=== PATIENT | female | born 1935 | race Caucasian/White ===

== ENCOUNTER 2018-03-16 17:40 | Inpatient (IN) | payer OTHER ==
[2018-03-16 18:54] VITALS: BMI 24.2
[2018-03-16] MEDS ORDERED: ALBUTEROL SO4 2.5/IPRATROPIUM 0.5 INH SOL 3 ML VIAL.NEB. NEB STA (19:45)
--- NOTE | 2018-03-16 19:52 | PDOC ---
History of Present Illness - General History Source: Patient Exam Limitations: No Limitations - History of Present Illness Initial Comments: 03/16/18 19:53 The patient is a 83 year old female, with a significant PMH of HTN, alzheimer's , gait difficulty, multiple falls and dementia who presents to the emergency department sent in for further evaluation of productive cough and failure to thrive. As per the daughter at bedside, the patient had 4 falls at [facility]. Patient had her last fall yesterday and was noted to have hit her head then. Patient is DNR and DNI according to paperwork. Allergies: penicillin Past surgical history: None reported. Social history: No reported alcohol or drug use. Prior smoker. PCP: Dr. Gunderson [phone] <Hedy Johnson - Last Filed: 03/16/18 20:53> <Alena Nieves - Last Filed: 03/17/18 00:35> - General Chief Complaint: Revisit,Radiology Variance Stated Complaint: DECLINED IN HEALTH STATUS Time Seen by Provider: 03/16/18 19:24 Past History <Hedy Johnson - Last Filed: 03/16/18 20:53> - Past Medical History COPD: No CHF: No HTN: Yes Psychiatric Problems: Yes (major depressive disorder) Other medical history: arthropathy - Suicide/Smoking/Psychosocial Hx Smoking History: Unknown if ever smoked Have you smoked in the past 12 months: No Information on smoking cessation initiated: No Hx Alcohol Use: No Drug/Substance Use Hx: No <Alena Nieves - Last Filed: 03/17/18 00:35> - Past Medical History Allergies/Adverse Reactions: Allergies Allergy/AdvReac Type Severity Reaction Status Date / Time Penicillins Allergy Verified 03/16/18 19:43 Home Medications: Ambulatory Orders Acetaminophen [Tylenol] 650 mg PO Q8H PRN 03/16/18 Amlodipine Besylate 5 mg PO DAILY 03/16/18 Cholecalciferol (Vitamin D3) [Vitamin D3] 1,000 unit PO DAILY 03/16/18 Donepezil HCl 5 mg PO HS 03/16/18 Haloperidol [Haldol -] 0.5 mg PO HS PRN 03/16/18 Paroxetine HCl [Paxil] 30 mg PO DAILY 03/16/18 Neuro Specific PMHX - Complaint Specific PMHX Glaucoma: Yes (alzheimers) <Chele Nievesa Emilia - Last Filed: 03/17/18 00:35> Review of Systems - Review of Systems Able to Perform ROS?: Yes Comments:: 03/16/18 19:54 ADULT ROS as per pts daughter GENERAL/CONSTITUTIONAL: No fever or chills. (+) 4 falls. (+) Increased somnolence. (+) Failure to thrive. HEAD, EYES, EARS, NOSE AND THROAT: (+) Right eye discharge. No ear pain or discharge. No sore throat. CARDIOVASCULAR: No chest pain or shortness of breath. RESPIRATORY: No wheezing, or hemoptysis. (+) Cough. (+) Rhinorrhea. GASTROINTESTINAL: No nausea, vomiting, diarrhea or constipation. GENITOURINARY: No dysuria, frequency, or change in urination. MUSCULOSKELETAL: No joint or muscle swelling or pain. No neck or back pain. SKIN: No rash NEUROLOGIC: No headache, vertigo, loss of consciousness, or change in strength/ sensation. ENDOCRINE: No increased thirst. No abnormal weight change. HEMATOLOGIC/LYMPHATIC: No anemia, easy bleeding, or history of blood clots. ALLERGIC/IMMUNOLOGIC: No hives or skin allergy. <Hedy Johnson - Last Filed: 03/16/18 20:53> *Physical Exam - Vital Signs Last Vital Signs Temp Pulse Resp BP Pulse Ox 97.4 F L 90 16 133/94 100 03/16/18 17:40 03/16/18 17:40 03/16/18 17:40 03/16/18 17:40 03/16/18 17:40 - Physical Exam Comments: 03/16/18 19:54 ADULT EXAM GENERAL: Awake, nonverbal. HEAD: (+) Resolving ecchymosis to the right forehead. EYES: PERRLA, EOMI, (+) drainage from the right eye and conjunctiva injected. ENT: Auricles normal inspection, hearing grossly normal, nares patent, oropharynx clear without exudates. (+)rhinorrhea. LUNGS: (+) Scattered rhonchi. No wheezing. HEART: Regular rate and rhythm, normal S1 and S2, no murmurs, rubs or gallops ABDOMEN: Soft, nontender. CHEST WALL: Bruising and ecchymosis to the right anterior chest wall. EXTREMITIES: (+) Bruising to the left upper extremity. Moving all extremities. No edema. NEUROLOGICAL: Alert. Moving all extremities. Advanced dementia, nonverbal. SKIN: Warm, Dry, scattered bruising on torso and extremities, multiple stages of healing. <Hedy Johnson - Last Filed: 03/16/18 20:53> - Vital Signs Last Vital Signs Temp Pulse Resp BP Pulse Ox 97.4 F L 90 16 133/94 100 03/16/18 17:40 03/16/18 17:40 03/16/18 17:40 03/16/18 17:40 03/16/18 17:40 <Alena Nieves - Last Filed: 03/17/18 00:35> Moderate Sedation - Procedure Monitoring Vital Signs: Procedure Monitoring Vital Signs Temperature 97.4 F L 03/16/18 17:40 Pulse Rate 90 03/16/18 17:40 Respiratory Rate 16 03/16/18 17:40 Blood Pressure 133/94 03/16/18 17:40 O2 Sat by Pulse Oximetry (%) 100 03/16/18 17:40 <Hedy Johnson - Last Filed: 03/16/18 20:53> - Procedure Monitoring Vital Signs: Procedure Monitoring Vital Signs Temperature 97.4 F L 03/16/18 17:40 Pulse Rate 90 03/16/18 17:40 Respiratory Rate 16 03/16/18 17:40 Blood Pressure 133/94 03/16/18 17:40 O2 Sat by Pulse Oximetry (%) 100 03/16/18 17:40 <Alena Nieves - Last Filed: 03/17/18 00:35> ED Treatment Course - LABORATORY CBC & Chemistry Diagram: 03/16/18 19:49 03/16/18 19:49 <Hedy Johnson - Last Filed: 03/16/18 20:53> - LABORATORY CBC & Chemistry Diagram: 03/16/18 19:49 03/16/18 21:08 - RADIOLOGY Radiology Studies Ordered: Category Date Time Status CHEST CT WITHOUT CONTRAST [CT] Stat CT Scan 03/16/18 19:[address] WITHOUT CONTRAST [CT] Stat CT Scan 03/16/18 19:49 Ordered CHEST - PA [RAD] Stat Radiology 03/16/18 18:44 Completed <Alena Nieves - Last Filed: 03/17/18 00:35> Medical Decision Making - Medical Decision Making 03/16/18 21:02 The head without contrast. Impression there is moderate atrophy and ventricular dilatation with NO gross evidence of acute intracranial pathology. The calvarium is intact. 03/16/18 22:16 Doris Herring ( daughter) cell [phone] work [phone] 03/17/18 00:31 Review of C-spine did not show any acute C-spine fracture No left humerus fracture. Radiograph of right hand, no fracture. Case discussed D[employer]EL [employer]CH[employer]IC Alena Hanks and I did speak with Dr. Jordan, who said to admit to telemetry, give aspirin and he was follow-up <Alena Nieves - Last Filed: 03/17/18 00:35> *DC/Admit/Observation/Transfer - Attestations Scribe Attestion: 03/16/18 19:54 Documentation prepared by Hedy Johnson, acting as biomedical instrument technician for Alena Nieves MD. <Hedy Johnson - Last Filed: 03/16/18 20:53> - Discharge Dispostion Decision to Admit order: Yes <Alena Nieves - Last Filed: 03/17/18 00:35> Diagnosis at time of Disposition: Falls frequently, Elevated troponin UTI (urinary tract infection) Qualifiers: Urinary tract infection type: site unspecified Hematuria presence: without hematuria Qualified Code(s): N39.0 - Urinary tract infection, site not specified Dementia Qualifiers: Dementia type: unspecified type Dementia behavioral disturbance: without behavioral disturbance Qualified Code(s): F03.90 - Unspecified dementia without behavioral disturbance - Discharge Dispostion Condition at time of disposition: Fair - Referrals Referrals: Romeo Wilson MD [Primary Care Provider] - - Patient Instructions - Post Discharge Activity
[2018-03-16 20:42] LABS: BASO % 0.2 % (0-2.0); EOS % 0.1 % (0-4.5); HEMATOCRIT 41.5 % (32.4-45.2); HEMOGLOBIN 13.8 GM/dL (10.7-15.3); LYMPH % 9.2 % (8-40); MCH 30.9 pg (25.7-33.7); MCHC 33.2 g/dl (32.0-36.0); MEAN PLT VOLUME 9.6 fl (7.5-11.1); MONO % 9.9 % (3.8-10.2); NEUT % 80.6 % (42.8-82.8); PLATELET COUNT 244 K/MM3 (134-434); RBC 4.46 M/mm3 (3.60-5.2); RDW 14.9 % (11.6-15.6); WHITE BLOOD COUNT 7.9 K/mm3 (4.0-10.0)
[2018-03-16 20:53] LABS: INR 1.09 (0.83-1.09); PROTHROMBIN TIME (PATIENT) 12.9 SEC (9.7-13.0)
[2018-03-16] MEDS ORDERED: ALBUTEROL SO4 2.5/IPRATROPIUM 0.5 INH SOL 3 ML VIAL.NEB. NEB ONE (21:14)
[2018-03-16 21:28] LABS: URINE APPEARANCE SLCLOUDY; URINE BILIRUBIN NEGATIVE (<2.0 mg/dL); URINE COLOR YELLOW; URINE GLUCOSE (UA) NEGATIVE (NEGATIVE); URINE KETONE TRACE (NEGATIVE); URINE LEUK ESTERASE 1+ (NEGATIVE); URINE NITRITE POSITIVE (NEGATIVE); URINE PROTEIN 1+ (NEGATIVE)
[2018-03-16] MEDS ORDERED: CEFTRIAXONE 1,000 MG in DEXTROSE 5%-WATER - 50 ML IVPB STA (22:07)
[2018-03-16] MEDS ORDERED: CEFTRIAXONE 1 GM/50 ML BAG ONE (22:11)
[2018-03-16 22:16] LABS: EPI CELLS RARE /HPF (FEW); URINE BACTERIA MANY /hpf (NONE SEEN); URINE MUCUS RARE
[2018-03-16] MEDS: SODIUM CHLORIDE 1,000 ML IV SCH (22:51)
[2018-03-16 23:13] LABS: ALBUMIN 3.3 g/dl (3.4-5.0); ALK PHOS 92 U/L (45-117); ANION GAP 10 MMOL/L (8-16); BILIRUBIN,TOTAL 0.7 mg/dL (0.2-1); BLOOD UREA NITROGEN 60 mg/dL (7-18); CHLORIDE 107 mmol/L (98-107); CO2 26 mmol/L (21-32); CREATININE 1.1 mg/dL (0.55-1.3); GLUCOSE,RANDOM 96 mg/dL (74-106); POTASSIUM 3.9 mmol/L (3.5-5.1); SGOT/AST 100 U/L (15-37); SGPT/ALT 53 U/L (13-61); SODIUM 143 mmol/L (136-145); TOT PROT 6.6 g/dl (6.4-8.2)
[2018-03-16] MEDS ORDERED: ASPIRIN 81 MG CHEWABLE TABLETS PO ONE (23:55)
--- NOTE | 2018-03-17 00:37 | HP ---
CHIEF COMPLAINT: Fever PCP: Dr. Gunderson ([facility]) HISTORY OF PRESENT ILLNESS: This is a 83 y/o woman from [facility] with a past medical history of Dementia, HTN, MDD, OA, Frequent Falls. Who presents to the ED for evaluation of fever. Patient has Dementia unable to provide HPI ER course was notable for: (1) UA- +nitrate, +1 blood, +1 leukocyte esterase, trace ketones (2) Chest Xray- cardiomegaly, no acute disease (3) Trop I 1.06 (4) EKG- NSR T wave abnormality, consider anterolateral ischemia Recent Travel: None PAST MEDICAL HISTORY: Dementia HTN MDD OA Frequent Falls PAST SURGICAL HISTORY: Unable to obtain Social History: Smoking: Unknown Alcohol: Unknown Drugs: Unknown Resides at [facility] Family History: Unable to obtain Allergies Penicillins Allergy (Verified 03/16/18 19:43) HOME MEDICATIONS: Home Medications Medication Instructions Recorded Acetaminophen [Tylenol] 650 mg PO Q8H PRN 03/16/18 Amlodipine Besylate 5 mg PO DAILY 03/16/18 Cholecalciferol (Vitamin D3) 1,000 unit PO DAILY 03/16/18 [Vitamin D3] Donepezil HCl 5 mg PO HS 03/16/18 Haloperidol [Haldol -] 0.5 mg PO HS PRN 03/16/18 Paroxetine HCl [Paxil] 30 mg PO DAILY 03/16/18 REVIEW OF SYSTEMS Dementia CONSTITUTIONAL: Absent: fever, chills, diaphoresis, generalized weakness, malaise, loss of appetite, weight change HEENT: Absent: rhinorrhea, nasal congestion, throat pain, throat swelling, difficulty swallowing, mouth swelling, ear pain, eye pain, visual changes CARDIOVASCULAR: Absent: chest pain, syncope, palpitations, irregular heart rate, lightheadedness , peripheral edema RESPIRATORY: Absent: cough, shortness of breath, dyspnea with exertion, orthopnea, wheezing, stridor, hemoptysis GASTROINTESTINAL: Absent: abdominal pain, abdominal distension, nausea, vomiting, diarrhea, constipation, melena, hematochezia GENITOURINARY: Absent: dysuria, frequency, urgency, hesitancy, hematuria, flank pain, genital pain MUSCULOSKELETAL: Absent: myalgia, arthralgia, joint swelling, back pain, neck pain SKIN: Absent: rash, itching, pallor HEMATOLOGIC/IMMUNOLOGIC: Absent: easy bleeding, easy bruising, lymphadenopathy, frequent infections ENDOCRINE: Absent: unexplained weight gain, unexplained weight loss, heat intolerance, cold intolerance NEUROLOGIC: Absent: headache, focal weakness or paresthesias, dizziness, unsteady gait, seizure, mental status changes, bladder or bowel incontinence PSYCHIATRIC: Absent: anxiety, depression, suicidal or homicidal ideation, hallucinations. PHYSICAL EXAMINATION Vital Signs - 24 hr 03/16/18 03/16/18 03/16/18 17:40 21:08 23:23 Temperature 97.4 F L 98.8 F Pulse Rate 90 Pulse Rate [ 86 Apical] Respiratory 16 20 Rate Blood Pressure 133/94 Blood Pressure 132/85 [Left Arm] O2 Sat by Pulse 100 98 Oximetry (%) GENERAL: Awake, alert to name, in no acute distress. HEAD: Normal with no signs of trauma. EYES: Pupils equal, round and reactive to light, extraocular movements intact, sclera anicteric, conjunctiva clear. No lid lag. EARS, NOSE, THROAT: Ears normal, nares patent, oropharynx clear without exudates. Moist mucous membranes. NECK: Normal range of motion, supple without lymphadenopathy, JVD, or masses. LUNGS: Breath sounds equal, clear to auscultation bilaterally. No wheezes, and no crackles. No accessory muscle use. HEART: Regular rate and rhythm, normal S1 and S2 without murmur, rub or gallop. ABDOMEN: Soft, nontender, not distended, normoactive bowel sounds, no guarding, no rebound, no masses. No hepatomegaly or splenomegaly. MUSCULOSKELETAL: Normal range of motion at all joints. No bony deformities or tenderness. No CVA tenderness. UPPER EXTREMITIES: 2+ pulses, warm, well-perfused. No cyanosis. No clubbing. No peripheral edema. LOWER EXTREMITIES: 2+ pulses, warm, well-perfused. No calf tenderness. No peripheral edema. NEUROLOGICAL: Cranial nerves II-XII intact. Normal speech. Gait not observed. PSYCHIATRIC: Cooperative. Good eye contact. Appropriate mood and affect. SKIN: Warm, dry, normal turgor, no rashes or lesions noted, normal capillary refill. eccyhmotic bruising- yellow/purple to Left Upper Arm Laboratory Results - last 24 hr 03/16/18 03/16/18 03/16/18 19:49 19:49 19:49 WBC 7.9 RBC 4.46 Hgb 13.8 Hct 41.5 MCV 93.0 MCH 30.9 MCHC 33.2 RDW 14.9 Plt Count 244 MPV 9.6 Absolute Neuts (auto) 6.4 Neutrophils % 80.6 Lymphocytes % 9.2 Monocytes % 9.9 Eosinophils % 0.1 Basophils % 0.2 Nucleated RBC % 0 PT with INR 12.90 INR 1.09 Sodium Potassium Chloride Carbon Dioxide Anion Gap BUN Creatinine Creat Clearance w eGFR Random Glucose Lactic Acid Calcium Total Bilirubin AST ALT Alkaline Phosphatase Creatine Kinase Troponin I Total Protein Albumin Urine Color Yellow Urine Appearance Slcloudy Urine pH 5.0 Ur Specific [place] 1.024 Urine Protein 1+ H Urine Glucose (UA) Negative Urine Ketones Trace H Urine Blood 1+ H Urine Nitrite Positive Urine Bilirubin Negative Urine Urobilinogen 2.0 H Ur Leukocyte Esterase 1+ H Urine WBC (Auto) 19 Urine RBC (Auto) 3 Ur Epithelial Cells Rare Urine Bacteria Many Urine Mucus Rare Influenza A (Rapid) Influenza B (Rapid) 03/16/18 03/16/18 03/16/18 19:49 19:49 19:49 WBC RBC Hgb Hct MCV MCH MCHC RDW Plt Count MPV Absolute Neuts (auto) Neutrophils % Lymphocytes % Monocytes % Eosinophils % Basophils % Nucleated RBC % PT with INR INR Sodium Cancelled Potassium Cancelled Chloride Cancelled Carbon Dioxide Cancelled Anion Gap Cancelled BUN Cancelled Creatinine Cancelled Creat Clearance w eGFR Cancelled Random Glucose Cancelled Lactic Acid 1.0 Calcium Cancelled Total Bilirubin Cancelled AST Cancelled ALT Cancelled Alkaline Phosphatase Cancelled Creatine Kinase Cancelled Troponin I Cancelled Total Protein Cancelled Albumin Cancelled Urine Color Urine Appearance Urine pH Ur Specific [place] Urine Protein Urine Glucose (UA) Urine Ketones Urine Blood Urine Nitrite Urine Bilirubin Urine Urobilinogen Ur Leukocyte Esterase Urine WBC (Auto) Urine RBC (Auto) Ur Epithelial Cells Urine Bacteria Urine Mucus Influenza A (Rapid) Influenza B (Rapid) 03/16/18 03/16/18 03/16/18 19:52 21:08 21:08 WBC RBC Hgb Hct MCV MCH MCHC RDW Plt Count MPV Absolute Neuts (auto) Neutrophils % Lymphocytes % Monocytes % Eosinophils % Basophils % Nucleated RBC % PT with INR INR Sodium 143 Potassium 3.9 Chloride 107 Carbon Dioxide 26 Anion Gap 10 BUN 60 H Creatinine 1.1 Creat Clearance w eGFR 47.67 Random Glucose 96 Lactic Acid Calcium 9.0 Total Bilirubin 0.7 AST 100 H ALT 53 Alkaline Phosphatase 92 Creatine Kinase Troponin I 1.06 H* Total Protein 6.6 Albumin 3.3 L Urine Color Urine Appearance Urine pH Ur Specific [place] Urine Protein Urine Glucose (UA) Urine Ketones Urine Blood Urine Nitrite Urine Bilirubin Urine Urobilinogen Ur Leukocyte Esterase Urine WBC (Auto) Urine RBC (Auto) Ur Epithelial Cells Urine Bacteria Urine Mucus Influenza A (Rapid) Negative Influenza B (Rapid) Negative ASSESSMENT/PLAN: This is a 83 y/o woman PMHx of Dementia, HTN, MDD, Frequent Falls. Admitted to Telemetry Elevated Troponin, UTI for further evaluation of their emergent condition. Plan: See Problem List FEN PO fluids as tolerated Replete lytes prn Low Na Diet DVT ppx OOB SCDs Heparin SQ Code Status: DNR/DNI Dispo: Requires Inpatient Care Problem List - Problem (1) Elevated troponin Assessment/Plan: r/o OH Cardiac monitoring Serial Enzymes Appreciate Cardiology consult- aware per ED attending will see in am Asa given in ED, will continue EKG- NSR, T wave abnormality V3, V4, V5 Consider Echo Code(s): R74.8 - ABNORMAL LEVELS OF OTHER SERUM ENZYMES (2) UTI (urinary tract infection) Assessment/Plan: UA- +nitrate, +1 blood, +1 leukocyte esterase, +trace ketones Urine Culture pending Ceftriaxone given in ED Will start on Levaquin secondary to PCN allergy Monitor CBC Monitor vitals Code(s): N39.0 - URINARY TRACT INFECTION, SITE NOT SPECIFIED Qualifiers: Urinary tract infection type: site unspecified Hematuria presence: without hematuria Qualified Code(s): N39.0 - Urinary tract infection, site not specified (3) Falls frequently Assessment/Plan: Head CT- moderate atrophy, no ICH C-spine- neg fx, neg subluxation Chest CT- no acute lung disease, no pnuemothorax, -pleural effusion, chronic fx , posterior ACH T12 Fall Precautions PT eval Monitor vitals Monitor CBC, BMP Code(s): R29.6 - REPEATED FALLS (4) Dementia Assessment/Plan: Continue home meds Code(s): F03.90 - UNSPECIFIED DEMENTIA WITHOUT BEHAVIORAL DISTURBANCE Qualifiers: Dementia type: unspecified type Dementia behavioral disturbance: without behavioral disturbance Qualified Code(s): F03.90 - Unspecified dementia without behavioral disturbance Visit type - Emergency Visit Emergency Visit: Yes ED Registration Date: 03/16/18 Care time: The patient presented to the Emergency Department on the above date and was hospitalized for further evaluation of their emergent condition. - New Patient This patient is new to me today: Yes Date on this admission: 03/17/18 - Critical Care Critical Care patient: No
[2018-03-17] MEDS ORDERED: ASPIRIN 325 MG TABLET ONE (01:37)
[2018-03-17] MEDS ORDERED: ASPIRIN 81 MG CHEWABLE TABLETS ONE (01:42)
[2018-03-17] MEDS ORDERED: HALOPERIDOL 0.5 MG TABLET PO PRN (07:04)
[2018-03-17] MEDS ORDERED: CEFTRIAXONE 1 GM in DEXTROSE 5%-WATER - 50 ML IVPB SCH (10:00)
[2018-03-17] MEDS ORDERED: PARoxetine HCL 30 MG TABLET PO SCH (10:00)
[2018-03-17 10:43] LABS: BASO % 0.6 % (0-2.0); EOS % 0.7 % (0-4.5); HEMATOCRIT 37.3 % (32.4-45.2); HEMOGLOBIN 12.5 GM/dL (10.7-15.3); LYMPH % 10.5 % (8-40); MCH 31.1 pg (25.7-33.7); MCHC 33.4 g/dl (32.0-36.0); MEAN CELL VOLUME 92.9 fl (80-96); MEAN PLT VOLUME 9.3 fl (7.5-11.1); MONO % 10.9 % (3.8-10.2); NEUT % 77.3 % (42.8-82.8); PLATELET COUNT 197 K/MM3 (134-434); RBC 4.01 M/mm3 (3.60-5.2); RDW 14.2 % (11.6-15.6); WHITE BLOOD COUNT 7.4 K/mm3 (4.0-10.0)
[2018-03-17] MEDS ORDERED: LORazepam 2 MG/ML SDV VIAL IVPUSH PRN (11:10)
--- NOTE | 2018-03-17 11:23 | PN ---
Progress Note (short form) - Note Progress Note: Events noted pt examined in ER she is confused, knows her name no complaints Vital Signs - 24 hr 03/16/18 03/16/18 03/16/18 17:40 21:08 23:23 Temperature 97.4 F L 98.8 F Pulse Rate 90 Pulse Rate [ 86 Apical] Respiratory 16 20 Rate Blood Pressure 133/94 Blood Pressure 132/85 [Left Arm] O2 Sat by Pulse 100 98 Oximetry (%) 03/17/18 02:00 Temperature 98.5 F Pulse Rate Pulse Rate [ 108 H Apical] Respiratory 22 H Rate Blood Pressure Blood Pressure 159/107 H [Left Arm] O2 Sat by Pulse 99 Oximetry (%) Current Medications Generic Name Dose Route Start Last Admin Trade Name Freq PRN Reason Stop Dose Admin Amlodipine Besylate 5 mg 03/17/18 10:00 Norvasc - PO DAILY [facility] Aspirin 81 mg 03/17/18 10:00 Asa - PO DAILY KYRA Cholecalciferol 1,000 unit 03/17/18 10:00 Vitamin D3 - PO DAILY [facility] Donepezil HCl 5 mg 03/17/18 22:00 Aricept - PO HS KYRA Heparin Sodium (Porcine) 5,000 unit 03/17/18 10:00 Heparin - SQ BID KYRA Sodium Chloride 1,000 mls @ 125 mls/hr 03/16/18 22:30 03/16/18 22:51 Normal Saline - IV 125 mls/hr ASDIR KYRA Administration Levofloxacin 250 mg in 50 mls @ 50 mls/hr 03/17/18 10:00 Levaquin 250 Mg Premixed Ivpb - IVPB 03/20/18 09:59 DAILY [facility] Protocol Lorazepam 0.5 mg 03/17/18 11:10 Ativan Injection - IVPUSH Q6H PRN ANXIETY Paroxetine HCl 20 mg/ 30 mg 03/17/18 10:00 Paroxetine HCl 10 mg PO DAILY [facility] Laboratory Results - last 24 hr 03/16/18 03/16/18 03/16/18 19:49 19:49 19:49 WBC 7.9 RBC 4.46 Hgb 13.8 Hct 41.5 MCV 93.0 MCH 30.9 MCHC 33.2 RDW 14.9 Plt Count 244 MPV 9.6 Absolute Neuts (auto) 6.4 Neutrophils % 80.6 Lymphocytes % 9.2 Monocytes % 9.9 Eosinophils % 0.1 Basophils % 0.2 Nucleated RBC % 0 PT with INR 12.90 INR 1.09 Sodium Potassium Chloride Carbon Dioxide Anion Gap BUN Creatinine Creat Clearance w eGFR Random Glucose Lactic Acid Calcium Total Bilirubin AST ALT Alkaline Phosphatase Creatine Kinase Troponin I Total Protein Albumin Urine Color Yellow Urine Appearance Slcloudy Urine pH 5.0 Ur Specific [place] 1.024 Urine Protein 1+ H Urine Glucose (UA) Negative Urine Ketones Trace H Urine Blood 1+ H Urine Nitrite Positive Urine Bilirubin Negative Urine Urobilinogen 2.0 H Ur Leukocyte Esterase 1+ H Urine WBC (Auto) 19 Urine RBC (Auto) 3 Ur Epithelial Cells Rare Urine Bacteria Many Urine Mucus Rare Influenza A (Rapid) Influenza B (Rapid) 03/16/18 03/16/18 03/16/18 19:49 19:49 19:49 WBC RBC Hgb Hct MCV MCH MCHC RDW Plt Count MPV Absolute Neuts (auto) Neutrophils % Lymphocytes % Monocytes % Eosinophils % Basophils % Nucleated RBC % PT with INR INR Sodium Cancelled Potassium Cancelled Chloride Cancelled Carbon Dioxide Cancelled Anion Gap Cancelled BUN Cancelled Creatinine Cancelled Creat Clearance w eGFR Cancelled Random Glucose Cancelled Lactic Acid 1.0 Calcium Cancelled Total Bilirubin Cancelled AST Cancelled ALT Cancelled Alkaline Phosphatase Cancelled Creatine Kinase Cancelled Troponin I Cancelled Total Protein Cancelled Albumin Cancelled Urine Color Urine Appearance Urine pH Ur Specific [place] Urine Protein Urine Glucose (UA) Urine Ketones Urine Blood Urine Nitrite Urine Bilirubin Urine Urobilinogen Ur Leukocyte Esterase Urine WBC (Auto) Urine RBC (Auto) Ur Epithelial Cells Urine Bacteria Urine Mucus Influenza A (Rapid) Influenza B (Rapid) 03/16/18 03/16/18 03/16/18 19:52 21:08 21:08 WBC RBC Hgb Hct MCV MCH MCHC RDW Plt Count MPV Absolute Neuts (auto) Neutrophils % Lymphocytes % Monocytes % Eosinophils % Basophils % Nucleated RBC % PT with INR INR Sodium 143 Potassium 3.9 Chloride 107 Carbon Dioxide 26 Anion Gap 10 BUN 60 H Creatinine 1.1 Creat Clearance w eGFR 47.67 Random Glucose 96 Lactic Acid Calcium 9.0 Total Bilirubin 0.7 AST 100 H ALT 53 Alkaline Phosphatase 92 Creatine Kinase Troponin I 1.06 H* Total Protein 6.6 Albumin 3.3 L Urine Color Urine Appearance Urine pH Ur Specific [place] Urine Protein Urine Glucose (UA) Urine Ketones Urine Blood Urine Nitrite Urine Bilirubin Urine Urobilinogen Ur Leukocyte Esterase Urine WBC (Auto) Urine RBC (Auto) Ur Epithelial Cells Urine Bacteria Urine Mucus Influenza A (Rapid) Negative Influenza B (Rapid) Negative 03/17/18 03/17/18 04:10 10:25 WBC 7.4 RBC 4.01 Hgb 12.5 Hct 37.3 MCV 92.9 MCH 31.1 MCHC 33.4 RDW 14.2 Plt Count 197 MPV 9.3 Absolute Neuts (auto) 5.7 Neutrophils % 77.3 Lymphocytes % 10.5 Monocytes % 10.9 H Eosinophils % 0.7 D Basophils % 0.6 Nucleated RBC % 0 PT with INR INR Sodium Potassium Chloride Carbon Dioxide Anion Gap BUN Creatinine Creat Clearance w eGFR Random Glucose Lactic Acid Calcium Total Bilirubin AST ALT Alkaline Phosphatase Creatine Kinase Troponin I 1.05 H* Total Protein Albumin Urine Color Urine Appearance Urine pH Ur Specific [place] Urine Protein Urine Glucose (UA) Urine Ketones Urine Blood Urine Nitrite Urine Bilirubin Urine Urobilinogen Ur Leukocyte Esterase Urine WBC (Auto) Urine RBC (Auto) Ur Epithelial Cells Urine Bacteria Urine Mucus Influenza A (Rapid) Influenza B (Rapid) Oral dry S1 S2 RRR lungs decreased Abd- soft, NT no edema PLAN Noted elevated troponins-- Echo ordered Cardiology consult Trend troponins-- elevated likely due to demand ischemia ,UTI IV antibiotics cultures pending ID eval xrays and CT scans noted no fractures fall precautions Pt is DNR/DNI Problem List - Problems (1) Dementia Code(s): F03.90 - UNSPECIFIED DEMENTIA WITHOUT BEHAVIORAL DISTURBANCE Qualifiers: Dementia type: unspecified type Dementia behavioral disturbance: without behavioral disturbance Qualified Code(s): F03.90 - Unspecified dementia without behavioral disturbance (2) Elevated troponin Code(s): R74.8 - ABNORMAL LEVELS OF OTHER SERUM ENZYMES (3) Falls frequently Code(s): R29.6 - REPEATED FALLS (4) UTI (urinary tract infection) Code(s): N39.0 - URINARY TRACT INFECTION, SITE NOT SPECIFIED Qualifiers: Urinary tract infection type: site unspecified Hematuria presence: without hematuria Qualified Code(s): N39.0 - Urinary tract infection, site not specified
[2018-03-17 11:27] LABS: ANION GAP 10 MMOL/L (8-16); BLOOD UREA NITROGEN 47 mg/dL (7-18); CALCIUM 8.7 mg/dL (8.5-10.1); CHLORIDE 110 mmol/L (98-107); CHOLESTEROL 180 mg/dL (50-200); CO2 26 mmol/L (21-32); CREATININE 0.9 mg/dL (0.55-1.3); GLUCOSE,RANDOM 92 mg/dL (74-106); HDL CHOLESTEROL 50 mg/dL (40-60); POTASSIUM 3.7 mmol/L (3.5-5.1); SODIUM 146 mmol/L (136-145); TRIGLYCERIDES 128 mg/dL (0-150)
--- NOTE | 2018-03-17 11:49 | CON.ID ---
Consult Consult Specialty:: infectious diseases Referred by:: Reason for Consultation:: sepsis,cough - History of Present Illness History of Present Illness: The patient is a 83 year old female, with a significant PMH of HTN, alzheimer's , gait difficulty, multiple falls and dementia who presents to the emergency department sent in for further evaluation of productive cough and failure to thrive. As per the daughter at bedside, the patient had 4 falls at [facility]. Patient had her last fall yesterday and was noted to have hit her head then. Patient is DNR and DNI according to paperwork. history obtained from the charts as patient is unable to give any further history - History Source History Provided By: Medical Record Limitations to Obtaining History: Clinical Condition - Alcohol/Substance Use Hx Alcohol Use: No - Smoking History Smoking history: Unknown if ever smoked Have you smoked in the past 12 months: No Home Medications - Allergies Allergies/Adverse Reactions: Allergies Allergy/AdvReac Type Severity Reaction Status Date / Time Penicillins Allergy Verified 03/16/18 19:43 - Home Medications Home Medications: Ambulatory Orders Acetaminophen [Tylenol] 650 mg PO Q8H PRN 03/16/18 Cholecalciferol (Vitamin D3) [Vitamin D3] 1,000 unit PO DAILY 03/16/18 Haloperidol [Haldol -] 0.5 mg PO HS PRN 03/16/18 Paroxetine HCl [Paxil] 30 mg PO DAILY 03/16/18 RX: Amlodipine Besylate 5 mg PO DAILY 03/16/18 RX: Donepezil HCl 5 mg PO HS 03/16/18 Review of Systems Unable to obtain ROS, reason: unable to obtain Physical Exam Vital Signs: Vital Signs Temperature 98.5 F 03/17/18 02:00 Pulse Rate 108 H 03/17/18 02:00 Respiratory Rate 22 H 03/17/18 02:00 Blood Pressure 159/107 H 03/17/18 02:00 O2 Sat by Pulse Oximetry (%) 99 03/17/18 02:00 Constitutional: Yes: Calm, Other Cardiovascular: Yes: Regular Rate and Rhythm Respiratory: Yes: Regular, On Nasal O2, Poor Air Entry, Rhonchi Gastrointestinal: Yes: Normal Bowel Sounds, Soft Musculoskeletal: Yes: WNL Extremities: Yes: Other Neurological: Yes: Lethargy, Other Labs: CBC, BMP 03/17/18 10:25 03/17/18 06:00 Imaging - Results Chest X-ray: Report Reviewed, Image Reviewed X-ray: Report Reviewed, Image Reviewed Cat Scan: Report Reviewed, Image Reviewed Assessment/Plan - Problems (1) Dementia Code(s): F03.90 - UNSPECIFIED DEMENTIA WITHOUT BEHAVIORAL DISTURBANCE Qualifiers: Dementia type: unspecified type Dementia behavioral disturbance: without behavioral disturbance Qualified Code(s): F03.90 - Unspecified dementia without behavioral disturbance (2) Elevated troponin Code(s): R74.8 - ABNORMAL LEVELS OF OTHER SERUM ENZYMES (3) Falls frequently Code(s): R29.6 - REPEATED FALLS (4) UTI (urinary tract infection) Code(s): N39.0 - URINARY TRACT INFECTION, SITE NOT SPECIFIED Qualifiers: Urinary tract infection type: site unspecified Hematuria presence: without hematuria Qualified Code(s): N39.0 - Urinary tract infection, site not specified plan will start patient on abx await for identification of the organism close watch hydration rest as per the team
[2018-03-17] MEDS: HEPARIN NA (PORCINE) 5,000 UNITS/ML 1ML VIAL SQ SCH ×2 (11:59→21:10)
[2018-03-17] MEDS: amLODIPine BESYLATE 5 MG TABLET (FP) PO SCH (11:59)
[2018-03-17] MEDS: ASPIRIN 81 MG CHEWABLE TABLETS PO SCH (11:59)
[2018-03-17] MEDS: PAROXETINE HCL 20 MG, PAROXETINE HCL 10 MG PO SCH (12:00)
[2018-03-17] MEDS: CHOLECALCIFEROL (VITAMIN D3) 1,000 UNIT TABLET (FP) PO SCH (12:00)
[2018-03-17] MEDS: AZTREONAM 1 GM in DEXTROSE 5%-WATER - 50 ML IVPB SCH ×2 (12:17→21:07)
--- NOTE | 2018-03-17 13:08 | EKG ---
Test Reason : Blood Pressure : / mmHG Vent. Rate : 089 BPM Atrial Rate : 089 BPM P-R Int : 162 ms QRS Dur : 064 ms QT Int : 338 ms P-R-T Axes : 074 -62 109 degrees QTc Int : 411 ms POOR DATA QUALITY, INTERPRETATION MAY BE ADVERSELY AFFECTED NORMAL SINUS RHYTHM POSSIBLE LEFT ATRIAL ENLARGEMENT LEFT ANTERIOR FASCICULAR BLOCK T WAVE ABNORMALITY, CONSIDER ANTEROLATERAL ISCHEMIA ABNORMAL ECG NO PREVIOUS ECGS AVAILABLE Confirmed by RASTA MCGREGOR MD ([id number]) on 03/17/2018 1:08:01 PM Referred By: Confirmed By:RASTA MCGREGOR MD
--- NOTE | 2018-03-17 13:10 | CON.CARD ---
Consult Consult Specialty:: Cardiology Reason for Consultation:: positive TNIS - History of Present Illness History of Present Illness: This is a 83 y/o woman from [facility] with a past medical history of Dementia, HTN, MDD, OA, Frequent Falls. Who presents to the ED for evaluation of fever. Patient has Dementia unable to provide HPI ER course was notable for: (1) UA- +nitrate, +1 blood, +1 leukocyte esterase, trace ketones (2) Chest Xray- cardiomegaly, no acute disease (3) Trop I 1.06 (4) EKG- NSR T wave abnormality, consider anterolateral ischemia - Alcohol/Substance Use Hx Alcohol Use: No - Smoking History Smoking history: Unknown if ever smoked Have you smoked in the past 12 months: No Home Medications - Allergies Allergies/Adverse Reactions: Allergies Allergy/AdvReac Type Severity Reaction Status Date / Time Penicillins Allergy Verified 03/16/18 19:43 - Home Medications Home Medications: Ambulatory Orders Acetaminophen [Tylenol] 650 mg PO Q8H PRN 03/16/18 Amlodipine Besylate 5 mg PO DAILY 03/16/18 Cholecalciferol (Vitamin D3) [Vitamin D3] 1,000 unit PO DAILY 03/16/18 Donepezil HCl 5 mg PO HS 03/16/18 Haloperidol [Haldol -] 0.5 mg PO HS PRN 03/16/18 Paroxetine HCl [Paxil] 30 mg PO DAILY 03/16/18 Review of Systems Unable to obtain ROS, reason: dementia Vital Signs: Vital Signs Temperature 98.5 F 03/17/18 02:00 Pulse Rate 108 H 03/17/18 02:00 Respiratory Rate 22 H 03/17/18 02:00 Blood Pressure 159/107 H 03/17/18 02:00 O2 Sat by Pulse Oximetry (%) 99 03/17/18 02:00 Constitutional: Yes: Well Nourished, No Distress, Calm Eyes: Yes: WNL, Conjunctiva Clear, EOM Intact HENT: Yes: WNL, Atraumatic, Normocephalic Neck: Yes: WNL, Supple, Trachea Midline Respiratory: Yes: WNL, Regular, CTA Bilaterally Gastrointestinal: Yes: WNL, Normal Bowel Sounds Renal/: Yes: WNL Cardiovascular: Yes: WNL, Regular Rate and Rhythm Musculoskeletal: Yes: WNL Extremities: Yes: WNL Integumentary: Yes: WNL ...Motor Strength: WNL Psychiatric: Yes: WNL, Alert, Oriented - Other Data Labs, Other Data: CBC, BMP 03/17/18 10:25 03/17/18 06:00 INR, PTT INR 1.09 (0.83-1.09) 03/16/18 19:49 Troponin, BNP 03/16/18 03/16/18 03/17/18 19:49 21:08 04:10 Troponin I Cancelled 1.06 H* 1.05 H* 03/17/18 06:00 Troponin I 0.91 H* Troponin, BNP 03/16/18 03/16/18 03/17/18 19:49 21:08 04:10 Troponin I Cancelled 1.06 H* 1.05 H* 03/17/18 06:00 Troponin I 0.91 H* Imaging - Results Chest X-ray: Image Reviewed (mild cm) EKG: Image Reviewed (sr inverted t waves lateral leads - r/o ischemia) Problem List - Problems (1) Dementia Code(s): F03.90 - UNSPECIFIED DEMENTIA WITHOUT BEHAVIORAL DISTURBANCE Qualifiers: Dementia type: unspecified type Dementia behavioral disturbance: without behavioral disturbance Qualified Code(s): F03.90 - Unspecified dementia without behavioral disturbance (2) Elevated troponin Code(s): R74.8 - ABNORMAL LEVELS OF OTHER SERUM ENZYMES (3) Falls frequently Code(s): R29.6 - REPEATED FALLS (4) UTI (urinary tract infection) Code(s): N39.0 - URINARY TRACT INFECTION, SITE NOT SPECIFIED Qualifiers: Urinary tract infection type: site unspecified Hematuria presence: without hematuria Qualified Code(s): N39.0 - Urinary tract infection, site not specified Assessment/Plan sepsis elevated tnis most likely due to sepsis abnormal ekg uti dementia Plan abx as per id supportive tr serial ekg and tnis echo asa will f/u
--- NOTE | 2018-03-17 14:55 | ECHO ---
Name: CHRIS BEAULIEU Exam:Adult Echocardiogram Study Date: 03/17/2018 12:34 PM Age: 83 yrs Reason For Study: EF Height: 59 in Weight: 120 lb BSA: 1.5 m2 MMode/2D Measurements & Calculations IVSd: 0.92 cm Ao root diam: 3.8 cm LVIDd: 4.3 cm LA dimension: 3.1 cm LVIDs: 2.4 cm ACS: 1.6 cm LVPWd: 0.96 cm IVSs: 1.1 cm LVPWs: 1.1 cm EDV(Teich): 83.5 ml ESV(Teich): 20.0 ml Doppler Measurements & Calculations MV E max dipika: 47.4 cm/sec Ao V2 max: 103.7 cm/sec MV A max dipika: 105.1 cm/sec Ao max P.3 mmHg MV E/A: 0.45 Ao V2 mean: 70.4 cm/sec Ao mean P.2 mmHg Ao V2 VTI: 16.5 cm TR max dipika: 214.0 cm/sec Med Peak E' Dipika: 3.1 cm/sec TR max P.4 mmHg Med E/e': 15.2 Lat Peak E' Dipika: 4.7 cm/sec Lat E/e': 10.1 Procedure A two-dimensional transthoracic echocardiogram with color flow and Doppler was performed. Left Ventricle The left ventricular size, thickness and function are normal. The left ventricular ejection fraction is normal. E/A reversal consistent with but not diagnostic of poor LV compliance. The left ventricular w all motion is normal. Right Ventricle The right ventricle is normal in size and function. Atria Normal left and right atrial size and function. Mitral Valve There is mild mitral valve thickening. There is no mitral valve stenosis. There is mild mitral regurg itation. Tricuspid Valve There is mild tricuspid valve thickening. There is no tricuspid stenosis. There is mild tricuspid regurgitation. Right ventricular systolic pressure is normal. Great Vessels The aortic root is normal size. Pericardium/Pleura There is no pericardial effusion. Interpretation Summary The left ventricular size, thickness and function are normal The left ventricular ejection fraction is normal. The left ventricular wall motion is normal. E/A reversal consistent with but not diagnostic of poor LV compliance There is mild mitral regurgitation. There is mild tricuspid regurgitation. Right ventricular systolic pressure is normal. MD Randy Jordan 03/17/2018 02:54 PM
[2018-03-17] MEDS: DONEPEZIL HCL 5 MG TABLET (FP) PO SCH (21:10)
[2018-03-17] MEDS: SODIUM CHLORIDE 1,000 ML IV SCH (22:50)
[2018-03-18] MEDS: AZTREONAM 1 GM in DEXTROSE 5%-WATER - 50 ML IVPB SCH ×3 (02:16→17:52)
[2018-03-18] MEDS ORDERED: PT OWN MED DRAWER 7, Y5N ONE (10:21)
[2018-03-18] MEDS: ASPIRIN 81 MG CHEWABLE TABLETS PO SCH (11:18)
[2018-03-18] MEDS: amLODIPine BESYLATE 5 MG TABLET (FP) PO SCH (11:18)
[2018-03-18] MEDS: CHOLECALCIFEROL (VITAMIN D3) 1,000 UNIT TABLET (FP) PO SCH (11:18)
[2018-03-18] MEDS: PAROXETINE HCL 20 MG, PAROXETINE HCL 10 MG PO SCH (11:18)
[2018-03-18] MEDS: HEPARIN NA (PORCINE) 5,000 UNITS/ML 1ML VIAL SQ SCH ×2 (11:18→21:17)
--- NOTE | 2018-03-18 11:28 | PN ---
Progress Note, Physician Chief Complaint: Pt has eyes open; says "hello Doctor", then does not speak anymore. Does not follow verbal requests (e.g. no movement when asked to move limbs). History of Present Illness: The patient is a 83 year old female, with a significant PMH of HTN, alzheimer's , gait difficulty, multiple falls, who presents to the emergency department sent in for further evaluation of productive cough and failure to thrive. As per the daughter at bedside, the patient had 4 falls at [facility]. Patient had her last fall yesterday and was noted to have hit her head then. Patient is DNR and DNI according to paperwork. Allergies: penicillin Past surgical history: None reported. Social history: No reported alcohol or drug use. Prior smoker. PCP: Dr. Gunderson [phone] - Current Medication List Current Medications: Active Medications Amlodipine Besylate (Norvasc -) 5 mg PO DAILY [facility] Last Admin: 03/18/18 11:18 Dose: 5 mg Aspirin (Asa -) 81 mg PO DAILY [facility] Last Admin: 03/18/18 11:18 Dose: 81 mg Cholecalciferol (Vitamin D3 -) 1,000 unit PO DAILY [facility] Last Admin: 03/18/18 11:18 Dose: 1,000 unit Donepezil HCl (Aricept -) 5 mg PO HS [facility] Last Admin: 03/17/18 21:10 Dose: 5 mg Heparin Sodium (Porcine) (Heparin -) 5,000 unit SQ BID [facility] Last Admin: 03/18/18 11:18 Dose: 5,000 unit Sodium Chloride (Normal Saline -) 1,000 mls @ 125 mls/hr IV ASDIR [facility] Last Admin: 03/17/18 22:50 Dose: 125 mls/hr Aztreonam 1 gm/ Dextrose 50 mls @ 100 mls/hr IVPB Q8H-IV [facility]; Protocol Last Admin: 03/18/18 11:19 Dose: 100 mls/hr Lorazepam (Ativan Injection -) 0.5 mg IVPUSH Q6H PRN PRN Reason: ANXIETY Paroxetine HCl 20 mg/ (Paroxetine HCl 10 mg) 30 mg PO DAILY [facility] Last Admin: 03/18/18 11:18 Dose: 30 mg - Objective Vital Signs: Vital Signs Temperature 98.4 F 03/18/18 06:00 Pulse Rate 77 03/18/18 08:47 Respiratory Rate 18 03/18/18 08:47 Blood Pressure 132/79 03/18/18 08:47 O2 Sat by Pulse Oximetry (%) 100 03/17/18 21:00 Labs: CBC, BMP 03/17/18 10:25 03/17/18 06:00 INR, PTT INR 1.09 (0.83-1.09) 03/16/18 19:49
--- NOTE | 2018-03-18 12:33 | PN ---
Progress Note (short form) - Note Progress Note: pt seen/ examined chart reviewed. patient is awake Speaks few words No distress Vital Signs Temp 98.4 F 03/18/18 06:00 Pulse 77 03/18/18 08:47 Resp 18 03/18/18 08:47 BP 132/79 03/18/18 08:47 Pulse Ox 100 03/17/18 21:00 Intake & Output 03/17/18 03/18/18 03/18/18 23:59 11:59 23:59 Intake Total 1980 1450 Output Total 850 400 Balance 1130 1050 Weight 120 lb Intake: IV 1100 1200 Normal Saline - 1,000 ml 1100 1200 @ 125 mls/hr IV ASDIR [facility] Rx#:[id number] IVPB 250 50 Oral 630 200 Output: Urine 850 400 Gallardo 850 400 Other: Voiding Method Indwelling Catheter Indwelling Catheter Bowel Movement No No Height 4 ft 11 in Body Mass Index (BMI) 24.2 Weight Measurement Method Estimated by Staff Active Medications Amlodipine Besylate (Norvasc -) 5 mg PO DAILY [facility] Last Admin: 03/18/18 11:18 Dose: 5 mg Aspirin (Asa -) 81 mg PO DAILY [facility] Last Admin: 03/18/18 11:18 Dose: 81 mg Cholecalciferol (Vitamin D3 -) 1,000 unit PO DAILY [facility] Last Admin: 03/18/18 11:18 Dose: 1,000 unit Donepezil HCl (Aricept -) 5 mg PO HS [facility] Last Admin: 03/17/18 21:10 Dose: 5 mg Heparin Sodium (Porcine) (Heparin -) 5,000 unit SQ BID [facility] Last Admin: 03/18/18 11:18 Dose: 5,000 unit Sodium Chloride (Normal Saline -) 1,000 mls @ 125 mls/hr IV ASDIR [facility] Last Admin: 03/17/18 22:50 Dose: 125 mls/hr Aztreonam 1 gm/ Dextrose 50 mls @ 100 mls/hr IVPB Q8H-IV [facility]; Protocol Last Admin: 03/18/18 11:19 Dose: 100 mls/hr Lorazepam (Ativan Injection -) 0.5 mg IVPUSH Q6H PRN PRN Reason: ANXIETY Paroxetine HCl 20 mg/ (Paroxetine HCl 10 mg) 30 mg PO DAILY [facility] Last Admin: 01/24/19 11:18 Dose: 30 mg CBC, BMP 03/17/18 10:25 03/17/18 06:00 Microbiology 03/16/18 19:48 Urine Culture - Preliminary Urine - Urine - Catheterized Lactose Fermenting Neg Bacilli Lactose Fermenting Neg Bacilli#2 physical exam S1 S2 RRR lungs decreased Abd- soft, NT no edema mucosa moist PLAN Noted elevated troponins--Likely stress related/demand ischemia echocardiogram Cardiology following--consultation noted IV antibiotics cultures pending fall precautions Pt is DNR/DNI we will follow Problem List - Problems (1) Dementia Code(s): F03.90 - UNSPECIFIED DEMENTIA WITHOUT BEHAVIORAL DISTURBANCE Qualifiers: Dementia type: unspecified type Dementia behavioral disturbance: without behavioral disturbance Qualified Code(s): F03.90 - Unspecified dementia without behavioral disturbance (2) Elevated troponin Code(s): R74.8 - ABNORMAL LEVELS OF OTHER SERUM ENZYMES (3) Falls frequently Code(s): R29.6 - REPEATED FALLS (4) UTI (urinary tract infection) Code(s): N39.0 - URINARY TRACT INFECTION, SITE NOT SPECIFIED Qualifiers: Urinary tract infection type: site unspecified Hematuria presence: without hematuria Qualified Code(s): N39.0 - Urinary tract infection, site not specified
--- NOTE | 2018-03-18 18:16 | PN ---
Progress Note, Physician History of Present Illness: patient stable dementia low grade fever - Current Medication List Current Medications: Active Medications Amlodipine Besylate (Norvasc -) 5 mg PO DAILY [facility] Last Admin: 03/18/18 11:18 Dose: 5 mg Aspirin (Asa -) 81 mg PO DAILY [facility] Last Admin: 03/18/18 11:18 Dose: 81 mg Cholecalciferol (Vitamin D3 -) 1,000 unit PO DAILY [facility] Last Admin: 03/18/18 11:18 Dose: 1,000 unit Donepezil HCl (Aricept -) 5 mg PO HS [facility] Last Admin: 03/17/18 21:10 Dose: 5 mg Heparin Sodium (Porcine) (Heparin -) 5,000 unit SQ BID [facility] Last Admin: 03/18/18 11:18 Dose: 5,000 unit Sodium Chloride (Normal Saline -) 1,000 mls @ 125 mls/hr IV ASDIR [facility] Last Admin: 03/17/18 22:50 Dose: 125 mls/hr Aztreonam 1 gm/ Dextrose 50 mls @ 100 mls/hr IVPB Q8H-IV [facility]; Protocol Last Admin: 03/18/18 17:52 Dose: 100 mls/hr Lorazepam (Ativan Injection -) 0.5 mg IVPUSH Q6H PRN PRN Reason: ANXIETY Paroxetine HCl 20 mg/ (Paroxetine HCl 10 mg) 30 mg PO DAILY [facility] Last Admin: 03/18/18 11:18 Dose: 30 mg - Objective Vital Signs: Vital Signs Temperature 100 F H 03/18/18 14:15 Pulse Rate 82 03/18/18 14:15 Respiratory Rate 18 03/18/18 14:15 Blood Pressure 147/73 03/18/18 14:15 O2 Sat by Pulse Oximetry (%) 100 03/17/18 21:00 Constitutional: Yes: No Distress, Calm, Other (dementia) Cardiovascular: Yes: S1, S2 Respiratory: Yes: Regular, CTA Bilaterally Gastrointestinal: Yes: Normal Bowel Sounds, Soft Musculoskeletal: Yes: WNL Extremities: Yes: WNL Neurological: Yes: Alert, Other Labs: CBC, BMP 03/17/18 10:25 03/17/18 06:00 INR, PTT INR 1.09 (0.83-1.09) 03/16/18 19:49 Assessment/Plan - Problems (1) Dementia Code(s): F03.90 - UNSPECIFIED DEMENTIA WITHOUT BEHAVIORAL DISTURBANCE Qualifiers: Dementia type: unspecified type Dementia behavioral disturbance: without behavioral disturbance Qualified Code(s): F03.90 - Unspecified dementia without behavioral disturbance (2) Elevated troponin Code(s): R74.8 - ABNORMAL LEVELS OF OTHER SERUM ENZYMES (3) Falls frequently Code(s): R29.6 - REPEATED FALLS (4) UTI (urinary tract infection) Code(s): N39.0 - URINARY TRACT INFECTION, SITE NOT SPECIFIED Qualifiers: Urinary tract infection type: site unspecified Hematuria presence: without hematuria Qualified Code(s): N39.0 - Urinary tract infection, site not specified plan awaiting for identification of the organism continue iv abx nutrition rest as per the team
[2018-03-18] MEDS: DONEPEZIL HCL 5 MG TABLET (FP) PO SCH (21:17)
[2018-03-19] MEDS: SODIUM CHLORIDE 1,000 ML IV SCH (02:12)
[2018-03-19] MEDS: AZTREONAM 1 GM in DEXTROSE 5%-WATER - 50 ML IVPB SCH (02:13)
--- NOTE | 2018-03-19 09:36 | PN ---
Progress Note, Physician History of Present Illness: patient looks much better more awake and alert responding properly says she feels better - Current Medication List Current Medications: Active Medications Amlodipine Besylate (Norvasc -) 5 mg PO DAILY [facility] Last Admin: 03/18/18 11:18 Dose: 5 mg Aspirin (Asa -) 81 mg PO DAILY [facility] Last Admin: 03/18/18 11:18 Dose: 81 mg Cholecalciferol (Vitamin D3 -) 1,000 unit PO DAILY [facility] Last Admin: 03/18/18 11:18 Dose: 1,000 unit Donepezil HCl (Aricept -) 5 mg PO HS [facility] Last Admin: 03/18/18 21:17 Dose: 5 mg Heparin Sodium (Porcine) (Heparin -) 5,000 unit SQ BID [facility] Last Admin: 03/18/18 21:17 Dose: 5,000 unit Sodium Chloride (Normal Saline -) 1,000 mls @ 125 mls/hr IV ASDIR [facility] Last Admin: 03/19/18 02:12 Dose: 125 mls/hr Aztreonam 1 gm/ Dextrose 50 mls @ 100 mls/hr IVPB Q8H-IV [facility]; Protocol Last Admin: 03/19/18 02:13 Dose: 100 mls/hr Lorazepam (Ativan Injection -) 0.5 mg IVPUSH Q6H PRN PRN Reason: ANXIETY Paroxetine HCl 20 mg/ (Paroxetine HCl 10 mg) 30 mg PO DAILY [facility] Last Admin: 03/18/18 11:18 Dose: 30 mg - Objective Vital Signs: Vital Signs Temperature 98.3 F 03/19/18 05:43 Pulse Rate 70 03/19/18 05:43 Respiratory Rate 20 03/19/18 05:43 Blood Pressure 134/80 03/19/18 05:43 O2 Sat by Pulse Oximetry (%) 97 03/19/18 00:42 Constitutional: Yes: No Distress, Calm Cardiovascular: Yes: S1, S2 Respiratory: Yes: Regular, CTA Bilaterally Gastrointestinal: Yes: Normal Bowel Sounds, Soft Musculoskeletal: Yes: WNL Extremities: Yes: Other Neurological: Yes: Alert, Oriented Psychiatric: Yes: Alert, Oriented Labs: CBC, BMP 03/17/18 10:25 03/17/18 06:00 INR, PTT INR 1.09 (0.83-1.09) 01/22/19 19:49 Assessment/Plan - Problems (1) Dementia Code(s): F03.90 - UNSPECIFIED DEMENTIA WITHOUT BEHAVIORAL DISTURBANCE Qualifiers: Dementia type: unspecified type Dementia behavioral disturbance: without behavioral disturbance Qualified Code(s): F03.90 - Unspecified dementia without behavioral disturbance (2) Elevated troponin Code(s): R74.8 - ABNORMAL LEVELS OF OTHER SERUM ENZYMES (3) Falls frequently Code(s): R29.6 - REPEATED FALLS (4) UTI (urinary tract infection) Code(s): N39.0 - URINARY TRACT INFECTION, SITE NOT SPECIFIED Qualifiers: Urinary tract infection type: site unspecified Hematuria presence: without hematuria Qualified Code(s): N39.0 - Urinary tract infection, site not specified organism noted plan will stop aztreonam will switch to meropenam will need to cover ther for 2 weeks rest as per the team
[2018-03-19] MEDS ORDERED: PT OWN MED DRAWER 7, Y5N ONE (11:28)
[2018-03-19] MEDS: MEROPENEM 1 GM in DEXTROSE 5%-WATER 100 ML IVPB SCH ×2 (11:32→18:20)
[2018-03-19] MEDS: HEPARIN NA (PORCINE) 5,000 UNITS/ML 1ML VIAL SQ SCH ×2 (11:32→23:45)
[2018-03-19] MEDS: CHOLECALCIFEROL (VITAMIN D3) 1,000 UNIT TABLET (FP) PO SCH (11:34)
[2018-03-19] MEDS: ASPIRIN 81 MG CHEWABLE TABLETS PO SCH (11:34)
[2018-03-19] MEDS: amLODIPine BESYLATE 5 MG TABLET (FP) PO SCH (11:35)
--- NOTE | 2018-03-19 11:45 | PN ---
Progress Note (short form) - Note Progress Note: pt seen/ examined more awake. enganges in small conversations denies pain afebrile all f/u noted Vital Signs Temp 98.3 F 03/19/18 05:43 Pulse 70 03/19/18 05:43 Resp 20 03/19/18 05:43 BP 134/80 03/19/18 05:43 Pulse Ox 97 03/19/18 00:42 Intake & Output 03/18/18 03/18/18 03/19/18 11:59 23:59 11:59 Intake Total 1450 1500 240 Output Total 400 500 700 Balance 1050 1000 -460 Intake: IV 1200 1400 Normal Saline - 1,000 ml 1200 1400 @ 125 mls/hr IV ASDIR [facility] Rx#:[id number] IVPB 50 100 Oral 200 240 Output: Urine 400 500 700 Gallardo 400 500 700 Other: Voiding Method Indwelling Catheter Indwelling Catheter Indwelling Catheter Bowel Movement No No Active Medications Amlodipine Besylate (Norvasc -) 5 mg PO DAILY [facility] Last Admin: 03/19/18 11:35 Dose: 5 mg Aspirin (Asa -) 81 mg PO DAILY [facility] Last Admin: 03/19/18 11:34 Dose: 81 mg Cholecalciferol (Vitamin D3 -) 1,000 unit PO DAILY [facility] Last Admin: 03/19/18 11:34 Dose: 1,000 unit Donepezil HCl (Aricept -) 5 mg PO HS [facility] Last Admin: 03/18/18 21:17 Dose: 5 mg Heparin Sodium (Porcine) (Heparin -) 5,000 unit SQ BID [facility] Last Admin: 03/19/18 11:32 Dose: 5,000 unit Meropenem 1 gm/ Dextrose 100 mls @ 200 mls/hr IVPB Q8H-IV [facility] Last Admin: 03/19/18 11:32 Dose: 200 mls/hr Lorazepam (Ativan Injection -) 0.5 mg IVPUSH Q6H PRN PRN Reason: ANXIETY Paroxetine HCl 20 mg/ (Paroxetine HCl 10 mg) 30 mg PO DAILY [facility] Last Admin: 03/18/18 11:18 Dose: 30 mg CBC, BMP 03/17/18 10:25 03/17/18 06:00 Microbiology 03/16/18 19:48 Urine Culture - Final Urine - Urine - Catheterized Klebsiella Pneumoniae Escherichia Coli Esbl Hybrid Corn Breeder 03/17/18 17:45 Blood Culture - Preliminary Blood - Peripheral Venous NO GROWTH OBTAINED AFTER 24 HOURS, INCUBATION TO CONTINUE FOR 4 DAYS. 03/17/18 16:45 Blood Culture - Preliminary Blood - Peripheral Venous NO GROWTH OBTAINED AFTER 24 HOURS, INCUBATION TO CONTINUE FOR 4 DAYS. Physical exam S1 S2 RRR lungs decreased Abd- soft, NT no edema mucosa moist awake PLAN better esble precautions abx per i/d fall precautions Pt is DNR/DNI pt has abnormal ct chest -- nodule vs secretions -- repeat ct chest in 3 months dysphaia diet--pt has no dentures-- left in [facility] d/c fluids f/u labs physical therapy oob - chair will follow discussed with pts daughter clare today in detail I also called pts private pmd Dr. Gunderson -- left message to call back Problem List - Problems (1) Dementia Code(s): F03.90 - UNSPECIFIED DEMENTIA WITHOUT BEHAVIORAL DISTURBANCE Qualifiers: Dementia type: unspecified type Dementia behavioral disturbance: without behavioral disturbance Qualified Code(s): F03.90 - Unspecified dementia without behavioral disturbance (2) Elevated troponin Code(s): R74.8 - ABNORMAL LEVELS OF OTHER SERUM ENZYMES (3) Falls frequently Code(s): R29.6 - REPEATED FALLS (4) UTI (urinary tract infection) Code(s): N39.0 - URINARY TRACT INFECTION, SITE NOT SPECIFIED Qualifiers: Urinary tract infection type: site unspecified Hematuria presence: without hematuria Qualified Code(s): N39.0 - Urinary tract infection, site not specified
[2018-03-19] MEDS: PAROXETINE HCL 20 MG, PAROXETINE HCL 10 MG PO SCH (18:19)
[2018-03-19] MEDS: DONEPEZIL HCL 5 MG TABLET (FP) PO SCH (23:45)
[2018-03-20] MEDS: MEROPENEM 1 GM in DEXTROSE 5%-WATER 100 ML IVPB SCH ×3 (02:52→18:43)
[2018-03-20 07:39] LABS: BASO % 0.3 % (0-2.0); EOS % 2.1 % (0-4.5); HEMATOCRIT 36.5 % (32.4-45.2); HEMOGLOBIN 12.7 GM/dL (10.7-15.3); LYMPH % 18.9 % (8-40); MCH 31.7 pg (25.7-33.7); MCHC 34.7 g/dl (32.0-36.0); MEAN CELL VOLUME 91.4 fl (80-96); MEAN PLT VOLUME 9.3 fl (7.5-11.1); MONO % 8.1 % (3.8-10.2); NEUT % 70.6 % (42.8-82.8); PLATELET COUNT 229 K/MM3 (134-434); WHITE BLOOD COUNT 7.2 K/mm3 (4.0-10.0)
[2018-03-20 08:12] LABS: ALBUMIN 2.4 g/dl (3.4-5.0); ALK PHOS 90 U/L (45-117); ANION GAP 7 MMOL/L (8-16); BILIRUBIN,TOTAL 0.8 mg/dL (0.2-1); BLOOD UREA NITROGEN 12 mg/dL (7-18); CALCIUM 7.8 mg/dL (8.5-10.1); CHLORIDE 104 mmol/L (98-107); CO2 28 mmol/L (21-32); CREATININE 0.5 mg/dL (0.55-1.3); GLUCOSE,RANDOM 88 mg/dL (74-106); POTASSIUM 3.5 mmol/L (3.5-5.1); SGOT/AST 35 U/L (15-37); SGPT/ALT 33 U/L (13-61); SODIUM 140 mmol/L (136-145); TOT PROT 5.2 g/dl (6.4-8.2)
[2018-03-20] MEDS: CHOLECALCIFEROL (VITAMIN D3) 1,000 UNIT TABLET (FP) PO SCH (10:40)
[2018-03-20] MEDS: amLODIPine BESYLATE 5 MG TABLET (FP) PO SCH (10:40)
[2018-03-20] MEDS: HEPARIN NA (PORCINE) 5,000 UNITS/ML 1ML VIAL SQ SCH ×2 (10:40→22:36)
[2018-03-20] MEDS: ASPIRIN 81 MG CHEWABLE TABLETS PO SCH (10:40)
[2018-03-20] MEDS: PAROXETINE HCL 20 MG, PAROXETINE HCL 10 MG PO SCH (10:40)
--- NOTE | 2018-03-20 12:38 | PN ---
Progress Note (short form) - Note Progress Note: Events noted pt examined more conversant No distress Vital Signs - 24 hr 03/19/18 03/19/18 03/19/18 15:05 18:17 21:00 Temperature 98.1 F 97.9 F Pulse Rate 77 80 Respiratory 20 20 Rate Blood Pressure 114/73 135/77 O2 Sat by Pulse 96 Oximetry (%) 03/19/18 03/20/18 22:00 05:52 Temperature 97.8 F 97.7 F Pulse Rate 83 76 Respiratory 20 20 Rate Blood Pressure 128/70 131/87 O2 Sat by Pulse Oximetry (%) Current Medications Generic Name Dose Route Start Last Admin Trade Name Freq PRN Reason Stop Dose Admin Amlodipine Besylate 5 mg 03/17/18 10:00 03/20/18 10:40 Norvasc - PO 5 mg DAILY KYRA Administration Aspirin 81 mg 03/17/18 10:00 03/20/18 10:40 Asa - PO 81 mg DAILY [facility]RA Administration Cholecalciferol 1,000 unit 03/17/18 10:00 03/20/18 10:40 Vitamin D3 - PO 1,000 unit DAILY KYRA Administration Donepezil HCl 5 mg 03/17/18 22:00 03/19/18 23:45 Aricept - PO 5 mg HS [facility]RA Administration Heparin Sodium (Porcine) 5,000 unit 03/17/18 10:00 03/20/18 10:40 Heparin - SQ 5,000 unit BID KYRA Administration Meropenem 1 gm/ Dextrose 100 mls @ 200 mls/hr 03/19/18 10:00 03/20/18 10:40 IVPB 200 mls/hr Q8H-IV [facility]RA Administration Lorazepam 0.5 mg 03/17/18 11:10 03/19/18 23:45 Ativan Injection - IVPUSH 0.5 mg Q6H PRN Administration ANXIETY Paroxetine HCl 20 mg/ 30 mg 03/17/18 10:00 03/20/18 10:40 Paroxetine HCl 10 mg PO 30 mg DAILY KYRA Administration Laboratory Results - last 24 hr 03/20/18 03/20/18 06:00 06:00 WBC 7.2 RBC 4.00 Hgb 12.7 Hct 36.5 MCV 91.4 MCH 31.7 MCHC 34.7 RDW 14.0 Plt Count 229 MPV 9.3 Absolute Neuts (auto) 5.1 Neutrophils % 70.6 Lymphocytes % 18.9 D Monocytes % 8.1 Eosinophils % 2.1 D Basophils % 0.3 Nucleated RBC % 0 Sodium 140 Potassium 3.5 Chloride 104 Carbon Dioxide 28 Anion Gap 7 L BUN 12 Creatinine 0.5 L Creat Clearance w eGFR > 60 Random Glucose 88 Calcium 7.8 L Total Bilirubin 0.8 AST 35 ALT 33 Alkaline Phosphatase 90 Total Protein 5.2 L Albumin 2.4 L Oral dry S1 S2 RRR lungs decreased Abd- soft, NT no edema PLAN IV antibiotics no fractures fall precautions Pt is DNR/DNI pt has abnormal ct chest -- nodule vs secretions -- repeat ct chest in 3 months spoke with 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 03/17/18 16:45 Blood - Peripheral Venous Blood Culture - Preliminary NO GROWTH OBTAINED AFTER 48 HOURS, INCUBATION TO CONTINUE FOR 3 DAYS. 03/16/18 19:48 Urine - Urine - Catheterized Urine Culture - Final Klebsiella Pneumoniae Escherichia Coli Esbl Continuous Improvement [place] Problem List - Problems (1) Dementia Code(s): F03.90 - UNSPECIFIED DEMENTIA WITHOUT BEHAVIORAL DISTURBANCE Qualifiers: Dementia type: unspecified type Dementia behavioral disturbance: without behavioral disturbance Qualified Code(s): F03.90 - Unspecified dementia without behavioral disturbance (2) Elevated troponin Code(s): R74.8 - ABNORMAL LEVELS OF OTHER SERUM ENZYMES (3) Falls frequently Code(s): R29.6 - REPEATED FALLS (4) UTI (urinary tract infection) Code(s): N39.0 - URINARY TRACT INFECTION, SITE NOT SPECIFIED Qualifiers: Urinary tract infection type: site unspecified Hematuria presence: without hematuria Qualified Code(s): N39.0 - Urinary tract infection, site not specified
--- NOTE | 2018-03-20 12:46 | PN ---
Progress Note, Physician History of Present Illness: stable no new issues - Current Medication List Current Medications: Active Medications Amlodipine Besylate (Norvasc -) 5 mg PO DAILY [facility] Last Admin: 03/20/18 10:40 Dose: 5 mg Aspirin (Asa -) 81 mg PO DAILY [facility] Last Admin: 03/20/18 10:40 Dose: 81 mg Cholecalciferol (Vitamin D3 -) 1,000 unit PO DAILY [facility] Last Admin: 03/20/18 10:40 Dose: 1,000 unit Donepezil HCl (Aricept -) 5 mg PO HS [facility] Last Admin: 03/19/18 23:45 Dose: 5 mg Heparin Sodium (Porcine) (Heparin -) 5,000 unit SQ BID [facility] Last Admin: 03/20/18 10:40 Dose: 5,000 unit Meropenem 1 gm/ Dextrose 100 mls @ 200 mls/hr IVPB Q8H-IV [facility] Last Admin: 03/20/18 10:40 Dose: 200 mls/hr Lorazepam (Ativan Injection -) 0.5 mg IVPUSH Q6H PRN PRN Reason: ANXIETY Last Admin: 03/19/18 23:45 Dose: 0.5 mg Paroxetine HCl 20 mg/ (Paroxetine HCl 10 mg) 30 mg PO DAILY [facility] Last Admin: 03/20/18 10:40 Dose: 30 mg - Objective Vital Signs: Vital Signs Temperature 97.7 F 03/20/18 05:52 Pulse Rate 76 03/20/18 05:52 Respiratory Rate 20 03/20/18 05:52 Blood Pressure 131/87 03/20/18 05:52 O2 Sat by Pulse Oximetry (%) 96 03/19/18 21:00 Constitutional: Yes: No Distress, Calm Cardiovascular: Yes: S1, S2 Respiratory: Yes: Regular, CTA Bilaterally Gastrointestinal: Yes: Normal Bowel Sounds, Soft Musculoskeletal: Yes: WNL Extremities: Yes: WNL Neurological: Yes: Alert Psychiatric: Yes: Alert Labs: CBC, BMP 03/20/18 06:00 03/20/18 06:00 INR, PTT INR 1.09 (0.83-1.09) 03/16/18 19:49 Assessment/Plan - Problems (1) Dementia Code(s): F03.90 - UNSPECIFIED DEMENTIA WITHOUT BEHAVIORAL DISTURBANCE Qualifiers: Dementia type: unspecified type Dementia behavioral disturbance: without behavioral disturbance Qualified Code(s): F03.90 - Unspecified dementia without behavioral disturbance (2) Elevated troponin Code(s): R74.8 - ABNORMAL LEVELS OF OTHER SERUM ENZYMES (3) Falls frequently Code(s): R29.6 - REPEATED FALLS (4) UTI (urinary tract infection) Code(s): N39.0 - URINARY TRACT INFECTION, SITE NOT SPECIFIED Qualifiers: Urinary tract infection type: site unspecified Hematuria presence: without hematuria Qualified Code(s): N39.0 - Urinary tract infection, site not specified organism noted plan continue meropenam complete the course rest as per the team
[2018-03-20] MEDS ORDERED: PT OWN MED DRAWER 7, Y5N ONE (18:40)
[2018-03-20] MEDS: DONEPEZIL HCL 5 MG TABLET (FP) PO SCH (22:36)
[2018-03-21] MEDS: MEROPENEM 1 GM in DEXTROSE 5%-WATER 100 ML IVPB SCH ×3 (01:17→17:31)
[2018-03-21] MEDS ORDERED: PT OWN MED DRAWER 7, Y5N ONE ×3 (09:21→17:29)
[2018-03-21] MEDS: HEPARIN NA (PORCINE) 5,000 UNITS/ML 1ML VIAL SQ SCH ×2 (09:43→22:12)
[2018-03-21] MEDS: ASPIRIN 81 MG CHEWABLE TABLETS PO SCH (09:44)
[2018-03-21] MEDS: CHOLECALCIFEROL (VITAMIN D3) 1,000 UNIT TABLET (FP) PO SCH (09:44)
[2018-03-21] MEDS: PAROXETINE HCL 20 MG, PAROXETINE HCL 10 MG PO SCH (09:46)
[2018-03-21] MEDS: amLODIPine BESYLATE 5 MG TABLET (FP) PO SCH (09:49)
--- NOTE | 2018-03-21 11:24 | PN ---
Progress Note (short form) - Note Progress Note: pt examined more conversant No distress Vital Signs - 24 hr 03/20/18 03/20/18 03/20/18 14:12 18:00 21:00 Temperature 97.7 F 98.0 F Pulse Rate 83 79 Respiratory 20 20 20 Rate Blood Pressure 120/69 132/83 O2 Sat by Pulse 97 Oximetry (%) 03/20/18 03/21/18 03/21/18 22:00 02:00 06:00 Temperature 98 F 97.5 F L 98.7 F Pulse Rate 92 H 76 75 Respiratory 20 20 20 Rate Blood Pressure 116/84 102/66 121/72 O2 Sat by Pulse Oximetry (%) 03/21/18 09:53 Temperature 97.6 F Pulse Rate 79 Respiratory 18 Rate Blood Pressure 119/69 O2 Sat by Pulse Oximetry (%) Current Medications Generic Name Dose Route Start Last Admin Trade Name Freq PRN Reason Stop Dose Admin Amlodipine Besylate 5 mg 03/17/18 10:00 03/21/18 09:49 Norvasc - PO 5 mg DAILY [facility] Administration Aspirin 81 mg 03/17/18 10:00 03/21/18 09:44 Asa - PO 81 mg DAILY [facility] Administration Cholecalciferol 1,000 unit 03/17/18 10:00 03/21/18 09:44 Vitamin D3 - PO 1,000 unit DAILY [facility] Administration Donepezil HCl 5 mg 03/17/18 22:00 03/20/18 22:36 Aricept - PO 5 mg HS [facility] Administration Heparin Sodium (Porcine) 5,000 unit 03/17/18 10:00 03/21/18 09:43 Heparin - SQ 5,000 unit BID [facility] Administration Meropenem 1 gm/ Dextrose 100 mls @ 200 mls/hr 03/19/18 10:00 03/21/18 09:43 IVPB 200 mls/hr Q8H-IV [facility] Administration Lorazepam 0.5 mg 03/17/18 11:10 03/19/18 23:45 Ativan Injection - IVPUSH 0.5 mg Q6H PRN Administration ANXIETY Paroxetine HCl 20 mg/ 30 mg 03/17/18 10:00 03/21/18 09:46 Paroxetine HCl 10 mg PO 30 mg DAILY [facility] Administration Oral dry S1 S2 RRR lungs decreased Abd- soft, NT no edema PLAN IV antibiotics- needs parts counterman -total 2 weeks no fractures fall precautions Pt is DNR/DNI pt has abnormal ct chest -- nodule vs secretions -- repeat ct chest in 3 months spoke with ID Microbiology 03/17/18 17:45 Blood - Peripheral Venous Blood Culture - Preliminary NO GROWTH OBTAINED AFTER 48 HOURS, INCUBATION TO CONTINUE FOR 3 DAYS. 03/17/18 16:45 Blood - Peripheral Venous Blood Culture - Preliminary NO GROWTH OBTAINED AFTER 48 HOURS, INCUBATION TO CONTINUE FOR 3 DAYS. 03/16/18 19:48 Urine - Urine - Catheterized Urine Culture - Final Klebsiella Pneumoniae Escherichia Coli Esbl Clinical Trainer Problem List - Problems (1) Dementia Code(s): F03.90 - UNSPECIFIED DEMENTIA WITHOUT BEHAVIORAL DISTURBANCE Qualifiers: Dementia type: unspecified type Dementia behavioral disturbance: without behavioral disturbance Qualified Code(s): F03.90 - Unspecified dementia without behavioral disturbance (2) Elevated troponin Code(s): R74.8 - ABNORMAL LEVELS OF OTHER SERUM ENZYMES (3) Falls frequently Code(s): R29.6 - REPEATED FALLS (4) UTI (urinary tract infection) Code(s): N39.0 - URINARY TRACT INFECTION, SITE NOT SPECIFIED Qualifiers: Urinary tract infection type: site unspecified Hematuria presence: without hematuria Qualified Code(s): N39.0 - Urinary tract infection, site not specified
--- NOTE | 2018-03-21 11:43 | PN ---
Progress Note, Physician History of Present Illness: stable comfortable - Current Medication List Current Medications: Active Medications Amlodipine Besylate (Norvasc -) 5 mg PO DAILY [facility] Last Admin: 03/21/18 09:49 Dose: 5 mg Aspirin (Asa -) 81 mg PO DAILY [facility] Last Admin: 03/21/18 09:44 Dose: 81 mg Cholecalciferol (Vitamin D3 -) 1,000 unit PO DAILY [facility] Last Admin: 03/21/18 09:44 Dose: 1,000 unit Donepezil HCl (Aricept -) 5 mg PO HS [facility] Last Admin: 03/20/18 22:36 Dose: 5 mg Heparin Sodium (Porcine) (Heparin -) 5,000 unit SQ BID [facility] Last Admin: 03/21/18 09:43 Dose: 5,000 unit Meropenem 1 gm/ Dextrose 100 mls @ 200 mls/hr IVPB Q8H-IV [facility] Last Admin: 03/21/18 09:43 Dose: 200 mls/hr Lorazepam (Ativan Injection -) 0.5 mg IVPUSH Q6H PRN PRN Reason: ANXIETY Last Admin: 03/19/18 23:45 Dose: 0.5 mg Paroxetine HCl 20 mg/ (Paroxetine HCl 10 mg) 30 mg PO DAILY [facility] Last Admin: 03/21/18 09:46 Dose: 30 mg - Objective Vital Signs: Vital Signs Temperature 97.6 F 03/21/18 09:53 Pulse Rate 79 03/21/18 09:53 Respiratory Rate 18 03/21/18 09:53 Blood Pressure 119/69 03/21/18 09:53 O2 Sat by Pulse Oximetry (%) 97 03/20/18 21:00 Constitutional: Yes: No Distress, Calm Cardiovascular: Yes: S1, S2 Respiratory: Yes: Regular, CTA Bilaterally Gastrointestinal: Yes: Normal Bowel Sounds, Soft Musculoskeletal: Yes: WNL Extremities: Yes: WNL Neurological: Yes: Alert, Oriented Psychiatric: Yes: Alert, Oriented Labs: CBC, BMP 03/20/18 06:00 03/20/18 06:00 INR, PTT INR 1.09 (0.83-1.09) 03/16/18 19:49 Assessment/Plan - Problems (1) Dementia Code(s): F03.90 - UNSPECIFIED DEMENTIA WITHOUT BEHAVIORAL DISTURBANCE Qualifiers: Dementia type: unspecified type Dementia behavioral disturbance: without behavioral disturbance Qualified Code(s): F03.90 - Unspecified dementia without behavioral disturbance (2) Elevated troponin Code(s): R74.8 - ABNORMAL LEVELS OF OTHER SERUM ENZYMES (3) Falls frequently Code(s): R29.6 - REPEATED FALLS (4) UTI (urinary tract infection) Code(s): N39.0 - URINARY TRACT INFECTION, SITE NOT SPECIFIED Qualifiers: Urinary tract infection type: site unspecified Hematuria presence: without hematuria Qualified Code(s): N39.0 - Urinary tract infection, site not specified organism noted plan continue meropenam 11 more days rest as per the team stable
[2018-03-21] MEDS: DONEPEZIL HCL 5 MG TABLET (FP) PO SCH (22:12)
[2018-03-22] MEDS ORDERED: PT OWN MED DRAWER 7, Y5N ONE ×3 (01:12→11:24)
[2018-03-22] MEDS: MEROPENEM 1 GM in DEXTROSE 5%-WATER 100 ML IVPB SCH ×2 (01:12→09:39)
--- NOTE | 2018-03-22 09:16 | PN ---
Progress Note, Physician History of Present Illness: This is a 83 y/o woman from [facility] with a past medical history of Dementia, HTN, MDD, OA, Frequent Falls. Who presents to the ED for evaluation of fever. Patient has Dementia unable to provide HPI ER course was notable for: (1) UA- +nitrate, +1 blood, +1 leukocyte esterase, trace ketones (2) Chest Xray- cardiomegaly, no acute disease (3) Trop I 1.06 (4) EKG- NSR T wave abnormality, consider anterolateral ischemia - Current Medication List Current Medications: Active Medications Amlodipine Besylate (Norvasc -) 5 mg PO DAILY [facility] Last Admin: 03/21/18 09:49 Dose: 5 mg Aspirin (Asa -) 81 mg PO DAILY [facility] Last Admin: 03/21/18 09:44 Dose: 81 mg Cholecalciferol (Vitamin D3 -) 1,000 unit PO DAILY [facility] Last Admin: 03/21/18 09:44 Dose: 1,000 unit Donepezil HCl (Aricept -) 5 mg PO HS [facility] Last Admin: 03/21/18 22:12 Dose: 5 mg Heparin Sodium (Porcine) (Heparin -) 5,000 unit SQ BID [facility] Last Admin: 03/21/18 22:12 Dose: 5,000 unit Meropenem 1 gm/ Dextrose 100 mls @ 200 mls/hr IVPB Q8H-IV [facility] Last Admin: 03/22/18 01:12 Dose: 200 mls/hr Lorazepam (Ativan Injection -) 0.5 mg IVPUSH Q6H PRN PRN Reason: ANXIETY Last Admin: 03/19/18 23:45 Dose: 0.5 mg Paroxetine HCl 20 mg/ (Paroxetine HCl 10 mg) 30 mg PO DAILY [facility] Last Admin: 03/21/18 09:46 Dose: 30 mg - Objective Vital Signs: Vital Signs Temperature 98.2 F 03/22/18 05:57 Pulse Rate 77 03/22/18 05:57 Respiratory Rate 20 03/22/18 05:57 Blood Pressure 124/76 03/22/18 05:57 O2 Sat by Pulse Oximetry (%) 97 03/21/18 20:13 Eyes: Yes: WNL, Conjunctiva Clear, EOM Intact HENT: Yes: WNL, Atraumatic, Normocephalic Neck: Yes: WNL, Supple, Trachea Midline Cardiovascular: Yes: WNL, Regular Rate and Rhythm Respiratory: Yes: WNL, Regular, CTA Bilaterally Gastrointestinal: Yes: WNL, Normal Bowel Sounds Genitourinary: Yes: WNL Musculoskeletal: Yes: WNL Extremities: Yes: WNL Edema: No Integumentary: Yes: WNL ...Motor Strength: WNL Psychiatric: Yes: WNL Labs: CBC, BMP 03/20/18 06:00 03/20/18 06:00 INR, PTT INR 1.09 (0.83-1.09) 03/16/18 19:49 Problem List - Problems (1) Dementia Code(s): F03.90 - UNSPECIFIED DEMENTIA WITHOUT BEHAVIORAL DISTURBANCE Qualifiers: Dementia type: unspecified type Dementia behavioral disturbance: without behavioral disturbance Qualified Code(s): F03.90 - Unspecified dementia without behavioral disturbance (2) Elevated troponin Code(s): R74.8 - ABNORMAL LEVELS OF OTHER SERUM ENZYMES (3) Falls frequently Code(s): R29.6 - REPEATED FALLS (4) UTI (urinary tract infection) Code(s): N39.0 - URINARY TRACT INFECTION, SITE NOT SPECIFIED Qualifiers: Urinary tract infection type: site unspecified Hematuria presence: without hematuria Qualified Code(s): N39.0 - Urinary tract infection, site not specified Assessment/Plan sepsis elevated tnis most likely due to sepsis echo nl LV size and systolic fx abnormal ekg uti dementia Plan abx as per id supportive tr serial ekg and tnis asa will f/u
[2018-03-22] MEDS: CHOLECALCIFEROL (VITAMIN D3) 1,000 UNIT TABLET (FP) PO SCH (09:38)
[2018-03-22] MEDS: HEPARIN NA (PORCINE) 5,000 UNITS/ML 1ML VIAL SQ SCH (09:38)
[2018-03-22] MEDS: ASPIRIN 81 MG CHEWABLE TABLETS PO SCH (09:38)
[2018-03-22] MEDS: amLODIPine BESYLATE 5 MG TABLET (FP) PO SCH (09:38)
--- NOTE | 2018-03-22 10:54 | DS ---
Physical Examination Vital Signs: Vital Signs Temperature 97.8 F 03/22/18 09:55 Pulse Rate 78 03/22/18 09:55 Respiratory Rate 20 03/22/18 09:55 Blood Pressure 132/76 03/22/18 09:55 O2 Sat by Pulse Oximetry (%) 97 03/21/18 20:13 Findings/Remarks: patient seen and examined Comfortable No distress all follow-ups noted Constitutional: Yes: No Distress Eyes: Yes: Conjunctiva Clear (low) Neck: Yes: Supple Cardiovascular: Yes: Regular Rate and Rhythm Gastrointestinal: Yes: Soft Edema: No Neurological: Yes: Other (awake) Labs: CBC, BMP 03/20/18 06:00 03/20/18 06:00 Discharge Summary Reason For Visit: URINARY TRACT INFECTION DEMENTIA ELEVATED TROPONIN Current Active Problems Dementia (Acute) Elevated troponin (Acute) Falls frequently (Acute) UTI (urinary tract infection) (Acute) Hospital Course: patient admitted from skilled nursing due to fever Workup--- showed a UTI--Escherichia coli ESBL and Klebsiella treated with antibiotics ID followed PICC line today----plan is total 2 weeks antibiotics per ID recommendation Patient also had elevated troponins-----and cardiology evaluation was taken--- considered to be demand ischemia Also had abnormal CAT scan--- chest----which was discussed with patient's PMD Dr. Golden by me follow-up CAT scan in 3 months advised I also have discussed in detail with patient's daughter Before and today anticipate discharge later today after PICC line insertion. Medications reconciled Discussed with nursing staff also Condition: Fair - Instructions Referrals: Romeo Wilson MD [Primary Care Provider] - - Home Medications Comprehensive Discharge Medication List: Ambulatory Orders Acetaminophen [Tylenol] 650 mg PO Q8H PRN 03/16/18 Amlodipine Besylate 5 mg PO DAILY 03/16/18 Cholecalciferol (Vitamin D3) [Vitamin D3] 1,000 unit PO DAILY 03/16/18 Donepezil HCl 5 mg PO HS 03/16/18 Haloperidol [Haldol -] 0.5 mg PO HS PRN 03/16/18 Paroxetine HCl [Paxil] 30 mg PO DAILY 03/16/18 Aspirin [ASA -] 81 mg PO DAILY tab.chew 03/22/18 Heparin - 5,000 unit SQ BID vial 01/28/19 Meropenem [Merrem (Restricted To Id) -] 1 gm IVPB Q8H-IV vial 03/22/18
[2018-03-22] MEDS ORDERED: INSULIN (NOVOLOG) ASPART 100 UNITS/ML 10ML VIAL ONE (11:25)
--- NOTE | 2018-03-22 13:38 | PN ---
Progress Note, Physician History of Present Illness: no new issues stable - Current Medication List Current Medications: Active Medications Amlodipine Besylate (Norvasc -) 5 mg PO DAILY [facility] Last Admin: 03/22/18 09:38 Dose: 5 mg Aspirin (Asa -) 81 mg PO DAILY [facility] Last Admin: 03/22/18 09:38 Dose: 81 mg Cholecalciferol (Vitamin D3 -) 1,000 unit PO DAILY [facility] Last Admin: 03/22/18 09:38 Dose: 1,000 unit Donepezil HCl (Aricept -) 5 mg PO HS [facility] Last Admin: 03/21/18 22:12 Dose: 5 mg Heparin Sodium (Porcine) (Heparin -) 5,000 unit SQ BID [facility] Last Admin: 03/22/18 09:38 Dose: 5,000 unit Meropenem 1 gm/ Dextrose 100 mls @ 200 mls/hr IVPB Q8H-IV [facility] Last Admin: 03/22/18 09:39 Dose: 200 mls/hr Lorazepam (Ativan Injection -) 0.5 mg IVPUSH Q6H PRN PRN Reason: ANXIETY Last Admin: 03/19/18 23:45 Dose: 0.5 mg Paroxetine HCl 20 mg/ (Paroxetine HCl 10 mg) 30 mg PO DAILY [facility] Last Admin: 03/21/18 09:46 Dose: 30 mg - Objective Vital Signs: Vital Signs Temperature 97.8 F 03/22/18 09:55 Pulse Rate 78 03/22/18 09:55 Respiratory Rate 20 03/22/18 09:55 Blood Pressure 132/76 03/22/18 09:55 O2 Sat by Pulse Oximetry (%) 97 03/22/18 09:00 Constitutional: Yes: No Distress, Calm Cardiovascular: Yes: S1, S2 Respiratory: Yes: Regular, CTA Bilaterally Gastrointestinal: Yes: Normal Bowel Sounds, Soft Musculoskeletal: Yes: WNL Extremities: Yes: WNL Neurological: Yes: Alert Labs: CBC, BMP 03/20/18 06:00 03/20/18 06:00 INR, PTT INR 1.09 (0.83-1.09) 03/16/18 19:49 Assessment/Plan - Problems (1) Dementia Code(s): F03.90 - UNSPECIFIED DEMENTIA WITHOUT BEHAVIORAL DISTURBANCE Qualifiers: Dementia type: unspecified type Dementia behavioral disturbance: without behavioral disturbance Qualified Code(s): F03.90 - Unspecified dementia without behavioral disturbance (2) Elevated troponin Code(s): R74.8 - ABNORMAL LEVELS OF OTHER SERUM ENZYMES (3) Falls frequently Code(s): R29.6 - REPEATED FALLS (4) UTI (urinary tract infection) Code(s): N39.0 - URINARY TRACT INFECTION, SITE NOT SPECIFIED Qualifiers: Urinary tract infection type: site unspecified Hematuria presence: without hematuria Qualified Code(s): N39.0 - Urinary tract infection, site not specified organism noted plan continue meropenam 10 more days rest as per the team stable
[2018-03-22] MEDS: PAROXETINE HCL 20 MG, PAROXETINE HCL 10 MG PO SCH (15:19)
[2018-03-22 15:23] VITALS: BP 144/79; PULSE 88; TEMP 98.1
== END 2018-03-22 16:15 | DRG 689 ==
LOC: JER 17:40 → JERBED 03-17 00:35 → J4W 03-17 16:19 → J7W 03-18 21:32 → J4W 03-18 22:19 → J7W 03-18 23:45
PROVIDERS: ADMIT Internal Medicine; ATTEND Internal Medicine
PROC: 02HV33Z Insertion of Infusion Device into Superior Vena Cava, Percutaneous Approach (ICD-10-PCS; principal; 2018-03-22)
PROC: B548ZZA Ultrasonography of Superior Vena Cava, Guidance (ICD-10-PCS; 2018-03-22)
DX: N39.0 Urinary tract infection, site not specified (principal); R53.2 Functional quadriplegia; I24.8 Other forms of acute ischemic heart disease; I10 Essential (primary) hypertension; R29.6 Repeated falls; G30.9 Alzheimer's disease, unspecified; F02.80 Dementia in other diseases classified elsewhere, unspecified severity, without behavioral disturbance, psychotic disturbance, mood disturbance, and anxiety; Z88.0 Allergy status to penicillin; Z66 Do not resuscitate; R62.7 Adult failure to thrive; R26.9 Unspecified abnormalities of gait and mobility; B96.20 Unspecified Escherichia coli [E. coli] as the cause of diseases classified elsewhere
CPT/HCPCS: 36415; 36569; 70450-TC; 71045-TC-FY; 71250-TC; 72125-TC; 73060-TC-LT-FY; 73130-TC-RT-FY; 77001-TC-FY; 80048; 80053; 80061; 81003; 81015; 83605; 83721; 83735; 84100; 84484; 85025; 85610; 87040; 87086; 87186; 87804; 93005; 93010; 93306-TC; 97116-GP; 97161-GP; 99285-25; C1751; J1644; J7030

== ENCOUNTER 2018-03-30 12:37 | Inpatient (IN) | payer OTHER ==
--- NOTE | 2018-03-30 13:01 | PDOC ---
History of Present Illness - General Chief Complaint: Injury Stated Complaint: FALL Time Seen by Provider: 03/30/18 12:59 History Source: Patient Exam Limitations: No Limitations - History of Present Illness Initial Comments: 03/30/18 14:22 83 yo F with a hx of HTN, major depressive disorder, dementia, and recurrent falls presents to the emergency department s/p fall that occurred at her snf at 10:44 AM at [facility] that was unwitnessed. Per the patient, she has no recollection of the fall and only states that she has pain in her right occipital region and left lateral hip. Per the daughter (Doris), she was notified of the fall but did not have additional details. Patient denies antecedent symptoms to the fall. Denies the following: fever, chills, chest pain , headache, SOB, palpitations, nausea, vomiting, abdominal pain, dysuria, hematuria, diarrhea, hematochezia, and leg pain/swelling. Allergies: PCN Medications: No anticoagulation use. On aspirin 81 mg. Past History - Past Medical History Allergies/Adverse Reactions: Allergies Allergy/AdvReac Type Severity Reaction Status Date / Time Penicillins Allergy Verified 03/30/18 12:57 Home Medications: Ambulatory Orders Acetaminophen [Tylenol] 650 mg PO Q8H PRN 03/16/18 Amlodipine Besylate 5 mg PO DAILY 03/16/18 Cholecalciferol (Vitamin D3) [Vitamin D3] 1,000 unit PO DAILY 03/16/18 Donepezil HCl 5 mg PO HS 03/16/18 Haloperidol [Haldol -] 0.5 mg PO HS PRN 03/16/18 Paroxetine HCl [Paxil] 30 mg PO DAILY 03/16/18 Aspirin [ASA -] 81 mg PO DAILY tab.chew 03/22/18 Heparin - 5,000 unit SQ BID vial 03/22/18 Meropenem [Merrem (Restricted To Id) -] 1 gm IVPB Q8H-IV vial 03/22/18 COPD: No CHF: No Dementia: Yes (alzheimers) HTN: Yes Psychiatric Problems: Yes (depression) - Suicide/Smoking/Psychosocial Hx Smoking History: Never smoked Have you smoked in the past 12 months: No Information on smoking cessation initiated: No Hx Alcohol Use: No Drug/Substance Use Hx: No Review of Systems - Review of Systems Able to Perform ROS?: No (dementia) *Physical Exam - Vital Signs Last Vital Signs Temp Pulse Resp BP Pulse Ox 97.2 F L 72 16 148/87 100 03/30/18 12:38 03/30/18 12:38 03/30/18 12:38 03/30/18 12:38 03/30/18 12:38 - Physical Exam General Appearance: Yes: Nourished, Appropriately Dressed, Thin. No: Apparent Distress HEENT: positive: EOMI, BARRY, Normal Voice, Pharynx Normal, Hearing Grossly Normal, Other (dry mucous membranes). negative: Pale Conjunctivae, Scleral Icterus (R), Scleral Icterus (L), Muffled/Hoarse voice, Pharyngeal Erythema, Tonsillar Exudate, Tonsillar Erythema, Nasal Congestion, Rhinorrhea, Excessive drooling Neck: positive: Trachea midline, Supple. negative: Tender, Lymphadenopathy (R) , Lymphadenopathy (L), Tender lateral, Tender midline Respiratory/Chest: positive: Lungs Clear, Normal Breath Sounds. negative: Chest Tender, Respiratory Distress, Accessory Muscle Use, Stridor, Wheezing, Hyperresonant Cardiovascular: positive: Regular Rhythm, Regular Rate, S1, S2. negative: Systolic Murmur Gastrointestinal/Abdominal: positive: Normal Bowel Sounds, Flat, Soft. negative : Tender, Rebound, Tenderness, Hernia Lymphatic: negative: Adenopathy Musculoskeletal: positive: Normal Inspection, Vertebral Tenderness (T10 and L5- S2). negative: CVA Tenderness Extremity: positive: Normal Capillary Refill, Pelvis Stable, Other (left leg mildly shortened and internally rotated. Unable to have active or passive ROM in the left leg. ). negative: Normal Inspection, Normal Range of Motion, Tender , Swelling, Calf Tenderness, Erythema Integumentary: positive: Normal Color, Dry, Warm Neurologic: positive: oracle database architect II-XII NML intact, Alert, Normal Mood/Affect. negative: Fully Oriented (oriented to self only) Moderate Sedation - Procedure Monitoring Vital Signs: Procedure Monitoring Vital Signs Temperature 97.2 F L 03/30/18 12:38 Pulse Rate 72 03/30/18 12:38 Respiratory Rate 16 03/30/18 12:38 Blood Pressure 148/87 03/30/18 12:38 O2 Sat by Pulse Oximetry (%) 100 03/30/18 12:38 ED Treatment Course - LABORATORY CBC & Chemistry Diagram: 03/31/18 05:30 02/06/19 05:30 Medical Decision Making - Medical Decision Making 03/30/18 13:06 83 yo F with a hx of HTN, major depressive disorder, dementia, and recurrent falls presents to the emergency department s/p fall that occurred at her snf at 10:44 AM at [facility] that was unwitnessed. Initial vitals; Initial Vital Signs Temp Pulse Resp BP Pulse Ox 97.2 F L 72 16 148/87 100 03/30/18 12:38 03/30/18 12:38 03/30/18 12:38 03/30/18 12:38 03/30/18 12:38 Work up: ddx: femur neck fracture vs pelvis fracture vs femur dislocation Laboratory Tests 03/30/18 03/30/18 13:54 13:54 WBC 9.1 RBC 4.01 Hgb 12.6 Hct 37.1 MCV 92.5 MCH 31.4 MCHC 33.9 RDW 14.5 Plt Count 299 D MPV 8.6 Absolute Neuts (auto) 7.4 Neutrophils % 81.7 Lymphocytes % 10.0 D Monocytes % 6.3 Eosinophils % 1.3 Basophils % 0.7 Nucleated RBC % 0 Sodium 136 Potassium 4.7 Chloride 101 Carbon Dioxide 28 Anion Gap 7 L BUN 13 Creatinine 0.6 Creat Clearance w eGFR > 60 Random Glucose 106 Calcium 9.0 Total Bilirubin 0.9 AST 42 H ALT 31 Alkaline Phosphatase 156 H Creatine Kinase 181 Creatine Kinase Index 2.9 CK-MB (CK-2) 5.3 H Troponin I 0.58 H Total Protein 6.6 Albumin 3.2 L patient has persistence of troponins being elevated despite the initial decrease beginning 2 weeks prior. CK was not elevated. EKG showed ventricualr rate of 93 bpm, NJ of 164 ms, QRS is 68 ms, and QTc is [address] elevations or depressions noted. anterior infarct from previous noted. the CT of the pelvis showed intertrochanteric fracture of the left femur. a consult call was placed to ortho. in addition, consult placed for cards. patient's other images did not show acute pathologies. pain was controlled with 2 mg of morphine. Dispo: Admit Daughter of patient: Doris Herring [phone], cell [phone], *DC/Admit/Observation/Transfer Diagnosis at time of Disposition: Elevated troponin Dementia Qualifiers: Dementia type: unspecified type Dementia behavioral disturbance: without behavioral disturbance Qualified Code(s): F03.90 - Unspecified dementia without behavioral disturbance Intertrochanteric fracture of left femur Qualifiers: Encounter type: initial encounter Fracture type: closed Fracture alignment: displaced Qualified Code(s): S72.142A - Displaced intertrochanteric fracture of left femur, initial encounter for closed fracture - Referrals - Patient Instructions - Post Discharge Activity
[2018-03-30] MEDS ORDERED: morphine CARPU-JECT 2 MG/1 ML DISP.SYRIN IVPUSH ONE (13:31)
--- NOTE | 2018-03-30 13:59 | PDOC ---
Attending Attestation - Resident Resident Name: Mahesh Koehler - ED Attending Attestation I have performed the following: I have examined & evaluated the patient, The case was reviewed & discussed with the resident, I agree w/resident's findings & plan, Exceptions are as noted - HPI HPI: 03/30/18 13:56 The patient is a 83 year old female with a significant past medical history of hypertension, alzheimer's and depression who presents to the emergency department via EMS from [facility] s/p an unwitnessed fall earlier today. As per care home, pt was found on the ground this morning. Pt unable to recall the events that led to her fall but complains of L hip pain and headache. Of note, patient was recently discharged from the hospital with a picc line for meropenem for a UTI. - Physicial Exam PE: 03/30/18 13:57 GENERAL: Awake, alert, in no acute distress. HEAD: No signs of trauma EYES: PERRLA, EOMI, sclera anicteric, conjunctiva clear ENT: Auricles normal inspection, hearing grossly normal, nares patent, oropharynx clear without exudates. Moist mucosa NECK: Nontender, no stepoffs, Normal ROM, supple, no lymphadenopathy, JVD, or masses LUNGS: Breath sounds equal, clear to auscultation bilaterally. No wheezes, and no crackles HEART: Regular rate and rhythm, normal S1 and S2, no murmurs, rubs or gallops ABDOMEN: Soft, nontender, normoactive bowel sounds. No guarding, no rebound. No masses EXTREMITIES: + L hip TTP, no obvious deformity, ROM limited 2/2 pain NEUROLOGICAL: Cranial nerves II through XII intact. SKIN: Warm, Dry, normal turgor, no rashes or lesions noted. - Medical Decision Making 03/30/18 13:59 83 F with unwitnessed fall this AM. Now complaining of L hip pain and headache. Will w/u for syncope. Check for rhabdo. Trauma eval. - Labs, trop, EKG - CT head/c-spine/pelvis - morphine 03/30/18 14:49 Trop 0.5, downtrending from previous admission EKG with no ischemic changes CT shows L femur fx. Ortho consulted Admitted to hospitalist
[2018-03-30] MEDS ORDERED: MORPHINE SULFATE 2 MG/ML VIAL ONE ×2 (14:03→17:26)
[2018-03-30] MEDS ORDERED: ONDANSETRON 4 MG/2 ML VIAL IVPUSH ONE (14:04)
[2018-03-30] MEDS ORDERED: ONDANSETRON 4 MG/2 ML VIAL ONE (14:05)
[2018-03-30 14:22] LABS: BASO % 0.7 % (0-2.0); EOS % 1.3 % (0-4.5); HEMATOCRIT 37.1 % (32.4-45.2); HEMOGLOBIN 12.6 GM/dL (10.7-15.3); MCH 31.4 pg (25.7-33.7); MCHC 33.9 g/dl (32.0-36.0); MEAN CELL VOLUME 92.5 fl (80-96); MEAN PLT VOLUME 8.6 fl (7.5-11.1); MONO % 6.3 % (3.8-10.2); NEUT % 81.7 % (42.8-82.8); PLATELET COUNT 299 K/MM3 (134-434); RBC 4.01 M/mm3 (3.60-5.2); RDW 14.5 % (11.6-15.6); WHITE BLOOD COUNT 9.1 K/mm3 (4.0-10.0)
[2018-03-30 14:35] LABS: ALBUMIN 3.2 g/dl (3.4-5.0); ALK PHOS 156 U/L (45-117); ANION GAP 7 MMOL/L (8-16); BILIRUBIN,TOTAL 0.9 mg/dL (0.2-1); BLOOD UREA NITROGEN 13 mg/dL (7-18); CHLORIDE 101 mmol/L (98-107); CO2 28 mmol/L (21-32); CREATININE 0.6 mg/dL (0.55-1.3); GLUCOSE,RANDOM 106 mg/dL (74-106); POTASSIUM 4.7 mmol/L (3.5-5.1); SGOT/AST 42 U/L (15-37); SGPT/ALT 31 U/L (13-61); SODIUM 136 mmol/L (136-145); TOT PROT 6.6 g/dl (6.4-8.2)
--- NOTE | 2018-03-30 16:00 | EKG ---
Test Reason : Blood Pressure : / mmHG Vent. Rate : 093 BPM Atrial Rate : 093 BPM P-R Int : 164 ms QRS Dur : 068 ms QT Int : 336 ms P-R-T Axes : 089 -51 099 degrees QTc Int : 417 ms POOR DATA QUALITY, INTERPRETATION MAY BE ADVERSELY AFFECTED NORMAL SINUS RHYTHM LEFT AXIS DEVIATION ANTERIOR INFARCT , AGE UNDETERMINED ABNORMAL ECG Confirmed by Sha Chauhan MD ([id number]) on 03/30/2018 4:00:17 PM Referred By: Confirmed By:Sha Chauhan MD
[2018-03-30] MEDS ORDERED: morphine CARPU-JECT 4 MG/1 ML DISP.SYRIN IVPUSH ONE (17:25)
[2018-03-30] MEDS ORDERED: ACETAMINOPHEN 325 MG TABLET (FP) PO PRN (17:32)
[2018-03-30] MEDS ORDERED: HALOPERIDOL 0.5 MG TABLET PO PRN (17:32)
--- NOTE | 2018-03-30 19:19 | CON.CARD ---
Consult Consult Specialty:: cardiology Reason for Consultation:: hip fracture - History of Present Illness Chief Complaint: Awake; denies pain. History of Present Illness: 83 yo F with a hx of HTN, major depressive disorder, dementia, and recurrent falls presents to the emergency department s/p fall that occurred at her group home at 10:44 AM at [facility] that was unwitnessed. Per the patient, she has no recollection of the fall and only states that she has pain in her right occipital region and left lateral hip. Per the daughter (Doris), she was notified of the fall but did not have additional details. Patient denies antecedent symptoms to the fall. Denies the following: fever, chills, chest pain , headache, SOB, palpitations, nausea, vomiting, abdominal pain, dysuria, hematuria, diarrhea, hematochezia, and leg pain/swelling. Allergies: PCN Medications: No anticoagulation use. On aspirin 81 mg. - History Source History Provided By: Medical Record Limitations to Obtaining History: Dementia - Past Medical History RESIDENTIAL SALES REPRESENTATIVE: Yes: Alzheimer's Cardio/Vascular: Yes: HTN - Alcohol/Substance Use Hx Alcohol Use: No - Smoking History Smoking history: Never smoked Have you smoked in the past 12 months: No Home Medications - Allergies Allergies/Adverse Reactions: Allergies Allergy/AdvReac Type Severity Reaction Status Date / Time Penicillins Allergy Verified 03/30/18 12:57 - Home Medications Home Medications: Ambulatory Orders Acetaminophen [Tylenol] 650 mg PO Q8H PRN 03/16/18 Amlodipine Besylate 5 mg PO DAILY 03/16/18 Cholecalciferol (Vitamin D3) [Vitamin D3] 1,000 unit PO DAILY 03/16/18 Donepezil HCl 5 mg PO HS 03/16/18 Haloperidol [Haldol -] 0.5 mg PO HS PRN 03/16/18 Paroxetine HCl [Paxil] 30 mg PO DAILY 03/16/18 Aspirin [ASA -] 81 mg PO DAILY tab.chew 03/22/18 Heparin - 5,000 unit SQ BID vial 03/22/18 Meropenem [Merrem (Restricted To Id) -] 1 gm IVPB Q8H-IV vial 03/22/18 Vital Signs: Vital Signs Temperature 97.2 F L 03/30/18 12:38 Pulse Rate 72 03/30/18 12:38 Respiratory Rate 16 03/30/18 12:38 Blood Pressure 148/87 03/30/18 12:38 O2 Sat by Pulse Oximetry (%) 100 03/30/18 12:38 - Other Data Labs, Other Data: CBC, BMP 03/30/18 13:54 03/30/18 13:54 Troponin, BNP 03/30/18 13:54 Troponin I 0.58 H Troponin, BNP 03/30/18 13:54 Troponin I 0.58 H Problem List - Problems (1) HTN (hypertension) Assessment/Plan: on amlodipine. ECHO 02/2018: normal LVEF. Code(s): I10 - ESSENTIAL (PRIMARY) HYPERTENSION (2) Dementia Code(s): F03.90 - UNSPECIFIED DEMENTIA WITHOUT BEHAVIORAL DISTURBANCE Qualifiers: Dementia type: unspecified type Dementia behavioral disturbance: without behavioral disturbance Qualified Code(s): F03.90 - Unspecified dementia without behavioral disturbance (3) Intertrochanteric fracture of left femur Code(s): S72.142A - DISPLACED INTERTROCHANTERIC FRACTURE OF LEFT FEMUR, INIT Qualifiers: Encounter type: initial encounter Fracture type: closed Fracture alignment: displaced Qualified Code(s): S72.142A - Displaced intertrochanteric fracture of left femur, initial encounter for closed fracture (4) Falls frequently Assessment/Plan: avoid dehydration. orthostatic vital signs. Latest fall has resulted in left hip fracture. Code(s): R29.6 - REPEATED FALLS (5) Diastolic CHF Code(s): I50.30 - UNSPECIFIED DIASTOLIC (CONGESTIVE) HEART FAILURE (6) Elevated troponin Assessment/Plan: TNI 0.58; CKMB relative index relatively low. EKG: NSR;LAD; poor R wave progression: r/o old anterior infarct; no acute ST-T changes. Noted greater elevations in the past two weeks (to maximum 1.06); ECHO at that time did not mention regional wall motion abnormalities. Code(s): R74.8 - ABNORMAL LEVELS OF OTHER SERUM ENZYMES (7) Compression fx, thoracic spine Code(s): S22.000A - WEDGE COMPRESSION FRACTURE OF UNSP THORACIC VERTEBRA, INIT
[2018-03-30 20:41] LABS: URINE APPEARANCE CLEAR; URINE BILIRUBIN NEGATIVE (<2.0 mg/dL); URINE COLOR LTYELLOW; URINE GLUCOSE (UA) NEGATIVE (NEGATIVE); URINE KETONE TRACE (NEGATIVE); URINE LEUK ESTERASE NEGATIVE (NEGATIVE); URINE NITRITE NEGATIVE (NEGATIVE); URINE PROTEIN 1+ (NEGATIVE); URINE UROBILINOGEN NEGATIVE mg/dL (0.2-1.0)
[2018-03-30 20:50] LABS: EPI CELLS RARE /HPF (FEW); URINE MUCUS RARE
[2018-03-30] MEDS: DOCUSATE SODIUM 100 MG CAPSULE (FP) PO SCH (21:59)
[2018-03-30] MEDS: oxyCODONE HCL 5 MG TABLET PO PRN (21:59)
[2018-03-30] MEDS: HEPARIN NA (PORCINE) 5,000 UNITS/ML 1ML VIAL SQ SCH (22:00)
[2018-03-30] MEDS ORDERED: SENNOSIDES 8.6MG TABLET (FP) PO SCH (22:00)
[2018-03-30] MEDS ORDERED: DONEPEZIL HCL 5 MG TABLET (FP) PO SCH (22:00)
--- NOTE | 2018-03-30 23:58 | HP ---
Admitting History and Physical - Primary Care Physician PCP: Oscar Bhakta - Admission Chief Complaint: s/p fall History of Present Illness: 83 year old female, with a significant PMH of HTN, alzheimer's, gait difficulty , multiple falls and dementia who presents to the emergency department from [facility] after an unwitnessed fall. pt was found on the ground this morning. Pt unable to recall the events that led to her fall but complains of L hip pain and headache. Of note, patient was recently discharged from the hospital with a picc line for meropenem for a UTI. In ED: 1. Trop 0.5, downtrending from previous admission. EKG with no ischemic changes 2. CT scan shows left-sided intertrochanteric fracture os seen with mild superior fracture displacement. 3. vitals: BP 105/71, HR 98, T 97.3, RR 18, Pt to be admitted for surgical evaluation. Unable to reach ortho overnight. History Source: Medical Record Limitations to Obtaining History: Dementia - Past Medical History LMFT: Yes: Alzheimer's Cardiovascular: Yes: HTN Reproductive: Yes: Postmenopausal Musculoskeletal: Yes: Osteoarthritis - Advance Directives Advance Directives: Yes: Health Care Proxy (health care proxy Doris Herring, daughter, [phone] (cell), [phone] (8am-6pm).), DNR - Smoking History Smoking history: Never smoked Have you smoked in the past 12 months: No - Alcohol/Substance Use Hx Alcohol Use: No History of Substance Use: reports: None - Social History Usual Living Arrangement: Yes: Longterm ADL: Support Services History of Recent Travel: No Home Medications - Allergies Allergies/Adverse Reactions: Allergies Allergy/AdvReac Type Severity Reaction Status Date / Time Penicillins Allergy Verified 03/30/18 12:57 - Home Medications Home Medications: Ambulatory Orders Acetaminophen [Tylenol] 650 mg PO Q8H PRN 03/16/18 Amlodipine Besylate 5 mg PO DAILY 03/16/18 Cholecalciferol (Vitamin D3) [Vitamin D3] 1,000 unit PO DAILY 03/16/18 Donepezil HCl 5 mg PO HS 03/16/18 Haloperidol [Haldol -] 0.5 mg PO HS PRN 03/16/18 Paroxetine HCl [Paxil] 30 mg PO DAILY 03/16/18 Aspirin [ASA -] 81 mg PO DAILY tab.chew 03/22/18 Heparin - 5,000 unit SQ BID vial 03/22/18 Meropenem [Merrem (Restricted To Id) -] 1 gm IVPB Q8H-IV vial 03/22/18 Family Disease History - Family Disease History Family History: Unable to Obtain Review of Systems Unable to obtain ROS, reason: pt minimally verbal, - Review of Systems Neck: reports: No Symptoms Cardiovascular: reports: No Symptoms Respiratory: reports: No Symptoms Gastrointestinal: reports: No Symptoms Musculoskeletal: reports: Joint Pain (hip) Neurological: reports: Confusion, Unsteady Gait, Weakness Physical Examination Vital Signs: Vital Signs Temperature 97.3 F L 03/30/18 21:45 Pulse Rate 98 H 03/30/18 21:45 Respiratory Rate 18 03/30/18 21:45 Blood Pressure 105/71 03/30/18 21:45 O2 Sat by Pulse Oximetry (%) 95 03/30/18 21:45 Constitutional: Yes: No Distress, Calm, Other (edentulous) Eyes: Yes: Conjunctiva Clear, PERRL HENT: Yes: Atraumatic, Normocephalic Neck: Yes: Supple, Trachea Midline Cardiovascular: Yes: Regular Rate and Rhythm, Murmur (systolic murmur Tricuspid region) Respiratory: Yes: Regular, CTA Bilaterally Gastrointestinal: Yes: Normal Bowel Sounds, Soft, Hypoactive Bowel Sounds ...Rectal Exam: Yes: Deferred Renal/: Yes: Gallardo Present Musculoskeletal: Yes: Joint Stiffness, Muscle Weakness Extremities: Yes: Cool Edema: Yes (L hip & thigh mild swelli) Peripheral Pulses WNL: Yes Peripheral Pulses: Left Radial: 2+, Right Radial: 2+, Left Doralis Pedis: 2+, Right Dorsalis Pedis: 2+ Integumentary: Yes: Other (scaling to ears) Neurological: Yes: Confusion, Weakness Labs: CBC, BMP 03/30/18 13:54 03/30/18 13:54 Imaging - Results Chest X-ray: Report Reviewed Cat Scan: Report Reviewed (CT C-spine 03/30/2018 IMPRESSION: The alignment is satisfactory. No gross fracture or subluxation is seen.), Other (CT pelvis [address] without contrast Clinical information: status post fall Multiplanar imaging was performed. No prior imaging studies are available at this facility for direct comparison. An acute left-sided intertrochanteric fracture is seen with mild superior fracture displacement. Severe left hip degenerative joint changes are noted. Diffuse osteoporosis. There is mild swelling of the left-sided adductor musculature. A small amount of air is seen within the urinary bladder lumen - ? recent catheterization/voiding.) Other: Report Reviewed (CT L-spine 03/30/2018 Impression: No acute fracture is identified involving the thoracic and lumbar spine. Moderate chronic T12, L1 and L2 vertebral body compression fractures are seen with minimal bony retropulsion. A small nonspecific sclerotic focus is seen within the right T1 lamina which may represent an incidental bone island and less likely neoplastic disease. Correlation with 2 - 3 month follow-up CT is suggested to evaluate stability. Alternatively correlate with skeletal scintigraphy. In comparison to a chest CT exam of 03/16/2018 interval development of a very small left pleural effusion is noted. There is an equivocal small left posterior basilar infiltrate (versus representing respiratory motion artifact). Chest CT evaluation may be considered. If CT evaluation is not performed correlate with close follow-up radiography. Reported By: Amando Chowdhury MD), Image Reviewed, Other (CT T-spine 03/30/2018 Impression: No acute fracture is identified involving the thoracic and lumbar spine. Moderate chronic T12, L1 and L2 vertebral body compression fractures are seen with minimal bony retropulsion. A small nonspecific sclerotic focus is seen within the right T1 lamina which may represent an incidental bone island and less likely neoplastic disease. Correlation with 2 - 3 month follow-up CT is suggested to evaluate stability. Alternatively correlate with skeletal scintigraphy. In comparison to a chest CT exam of 03/16/2018 interval development of a very small left pleural effusion is noted. There is an equivocal small left posterior basilar infiltrate (versus representing respiratory motion artifact). Chest CT evaluation may be considered. If CT evaluation is not performed correlate with close follow-up radiography. Reported By: Amando Chowdhury MD [id number]) Problem List - Problems (1) Dementia Assessment/Plan: Paxil 30mg daily haldol 0.5mg qhs Aricept 5mg daily fall precautions Code(s): F03.90 - UNSPECIFIED DEMENTIA WITHOUT BEHAVIORAL DISTURBANCE Qualifiers: Dementia type: unspecified type Dementia behavioral disturbance: without behavioral disturbance Qualified Code(s): F03.90 - Unspecified dementia without behavioral disturbance (2) HTN (hypertension) Assessment/Plan: norvasc 5mg daily ASA 81mg Code(s): I10 - ESSENTIAL (PRIMARY) HYPERTENSION (3) Intertrochanteric fracture of left femur Assessment/Plan: surgery following NPO after midnight cardiac clearance needed trend trop/CKMB APAP for mild pain Oxycodone PRN severe PAin Code(s): S72.142A - DISPLACED INTERTROCHANTERIC FRACTURE OF LEFT FEMUR, INIT Qualifiers: Encounter type: initial encounter Fracture type: closed Fracture alignment: displaced Qualified Code(s): S72.142A - Displaced intertrochanteric fracture of left femur, initial encounter for closed fracture (4) UTI (urinary tract infection) Assessment/Plan: cont IV Meropenem 1gm Q8hrs via PICC line Code(s): N39.0 - URINARY TRACT INFECTION, SITE NOT SPECIFIED Qualifiers: Urinary tract infection type: site unspecified Hematuria presence: without hematuria Qualified Code(s): N39.0 - Urinary tract infection, site not specified Assessment/Plan Code status: DNR/DNI ?? does daughter want to rescind for procedure bowel regimen with senna and colace SC heparin TID for DVT PPX Visit type - Emergency Visit Emergency Visit: Yes ED Registration Date: 03/30/18 Care time: The patient presented to the Emergency Department on the above date and was hospitalized for further evaluation of their emergent condition. - New Patient This patient is new to me today: Yes Date on this admission: 03/31/18 - Critical Care Critical Care patient: No
[2018-03-31] MEDS ORDERED: LACTATED RINGERS SOLUTION 1,000 ML/1,000 ML INFUS.BAG IV SCH ×2 (00:30→17:25)
[2018-03-31] MEDS: MEROPENEM 1 GM in DEXTROSE 5%-WATER 100 ML IVPB SCH ×2 (01:16→09:32)
[2018-03-31] MEDS ORDERED: MEROPENEM 1 GM IVPB SCH (02:00)
[2018-03-31 06:24] VITALS: BMI 24.5
[2018-03-31] MEDS: oxyCODONE HCL 5 MG TABLET PO PRN (06:26)
[2018-03-31 08:06] LABS: BASO % 0.6 % (0-2.0); EOS % 0.7 % (0-4.5); LYMPH % 12.2 % (8-40); MCH 32.8 pg (25.7-33.7); MCHC 35.7 g/dl (32.0-36.0); MEAN CELL VOLUME 91.9 fl (80-96); MEAN PLT VOLUME 9.3 fl (7.5-11.1); MONO % 7.3 % (3.8-10.2); NEUT % 79.2 % (42.8-82.8); PLATELET COUNT 273 K/MM3 (134-434); RBC 3.05 M/mm3 (3.60-5.2); RDW 14.7 % (11.6-15.6); WHITE BLOOD COUNT 6.3 K/mm3 (4.0-10.0)
[2018-03-31 08:16] LABS: INR 1.09 (0.83-1.09); PROTHROMBIN TIME (PATIENT) 12.9 SEC (9.7-13.0)
[2018-03-31 08:18] LABS: ACTIVATED PTT 28.6 SECONDS (25.2-36.5)
[2018-03-31 09:14] LABS: ALBUMIN 2.7 g/dl (3.4-5.0); ALK PHOS 135 U/L (45-117); ANION GAP 7 MMOL/L (8-16); BILIRUBIN,TOTAL 0.8 mg/dL (0.2-1); BLOOD UREA NITROGEN 19 mg/dL (7-18); CALCIUM 8.5 mg/dL (8.5-10.1); CHLORIDE 101 mmol/L (98-107); CO2 29 mmol/L (21-32); CREATININE 0.7 mg/dL (0.55-1.3); GLUCOSE,RANDOM 98 mg/dL (74-106); MAGNESIUM 2.2 mg/dL (1.8-2.4); PHOSPHOROUS 3.6 mg/dL (2.5-4.9); POTASSIUM 4.6 mmol/L (3.5-5.1); SGOT/AST 34 U/L (15-37); SGPT/ALT 25 U/L (13-61); SODIUM 137 mmol/L (136-145); TOT PROT 5.7 g/dl (6.4-8.2)
[2018-03-31] MEDS: HEPARIN NA (PORCINE) 5,000 UNITS/ML 1ML VIAL SQ SCH (09:32)
[2018-03-31] MEDS: DOCUSATE SODIUM 100 MG CAPSULE (FP) PO SCH ×2 (09:33→22:13)
[2018-03-31] MEDS ORDERED: PARoxetine HCL 30 MG TABLET PO SCH (10:00)
[2018-03-31] MEDS ORDERED: amLODIPine BESYLATE 5 MG TABLET (FP) PO SCH (10:00)
[2018-03-31] MEDS ORDERED: ASPIRIN 81 MG CHEWABLE TABLETS PO SCH (10:00)
[2018-03-31] MEDS ORDERED: CHOLECALCIFEROL (VITAMIN D3) 1,000 UNIT TABLET (FP) PO SCH (10:00)
--- NOTE | 2018-03-31 10:26 | PN ---
Progress Note, Physician History of Present Illness: 83 yo F with a hx of HTN, major depressive disorder, dementia, and recurrent falls presents to the emergency department s/p fall that occurred at her detention at 10:44 AM at [facility] that was unwitnessed. Per the patient, she has no recollection of the fall and only states that she has pain in her right occipital region and left lateral hip. Per the daughter (Doris), she was notified of the fall but did not have additional details. Patient denies antecedent symptoms to the fall. Denies the following: fever, chills, chest pain , headache, SOB, palpitations, nausea, vomiting, abdominal pain, dysuria, hematuria, diarrhea, hematochezia, and leg pain/swelling. Allergies: PCN Medications: No anticoagulation use. On aspirin 81 mg. - Current Medication List Current Medications: Active Medications Acetaminophen (Tylenol -) 650 mg PO Q8H PRN PRN Reason: PAIN Amlodipine Besylate (Norvasc -) 5 mg PO DAILY [facility] Last Admin: 03/31/18 09:33 Dose: 5 mg Aspirin (Asa -) 81 mg PO DAILY [facility] Last Admin: 03/31/18 09:32 Dose: 81 mg Cholecalciferol (Vitamin D3 -) 1,000 unit PO DAILY [facility] Last Admin: 03/31/18 09:33 Dose: 1,000 unit Docusate Sodium (Colace -) 100 mg PO BID [facility] Last Admin: 03/31/18 09:33 Dose: 100 mg Donepezil HCl (Aricept -) 5 mg PO HS [facility] Last Admin: 03/30/18 21:59 Dose: 5 mg Haloperidol (Haldol -) 0.5 mg PO HS PRN PRN Reason: psychosis Heparin Sodium (Porcine) (Heparin -) 5,000 unit SQ BID [facility] Last Admin: 03/31/18 09:32 Dose: 5,000 unit Meropenem 1 gm/ Dextrose 100 mls @ 200 mls/hr IVPB Q8H-IV [facility] Last Admin: 03/31/18 09:32 Dose: 200 mls/hr Lactated Ringer's (Lactated Ringers Solution) 1,000 ml in 1,000 mls @ 42 mls/ hr IV ASDIR [facility] Last Admin: 03/31/18 01:16 Dose: 42 mls/hr Oxycodone HCl (Roxicodone -) 5 mg PO Q6H PRN PRN Reason: PAIN LEVEL 7 - 10 Last Admin: 03/31/18 06:26 Dose: 5 mg Paroxetine HCl (Paxil -) 30 mg PO DAILY [facility] Last Admin: 03/31/18 09:35 Dose: Not Given Senna (Senna -) 2 tab PO HS [facility] Last Admin: 03/30/18 21:59 Dose: 2 tab - Objective Vital Signs: Vital Signs Temperature 98 F 03/31/18 05:00 Pulse Rate 73 03/31/18 09:00 Respiratory Rate 18 03/31/18 07:50 Blood Pressure 123/61 03/31/18 09:00 O2 Sat by Pulse Oximetry (%) 96 03/31/18 07:50 Eyes: Yes: WNL, Conjunctiva Clear, EOM Intact HENT: Yes: WNL, Atraumatic, Normocephalic Neck: Yes: WNL, Supple, Trachea Midline Cardiovascular: Yes: WNL, Regular Rate and Rhythm Respiratory: Yes: WNL, Regular, CTA Bilaterally Gastrointestinal: Yes: WNL, Normal Bowel Sounds Genitourinary: Yes: WNL Musculoskeletal: Yes: WNL Extremities: Yes: WNL Edema: No Integumentary: Yes: WNL Neurological: Yes: WNL, Alert, Oriented ...Motor Strength: WNL Psychiatric: Yes: WNL Labs: CBC, BMP 03/31/18 05:30 03/31/18 05:30 INR, PTT INR 1.09 (0.83-1.09) 03/31/18 05:30 Assessment/Plan - Problems (1) HTN (hypertension) Assessment/Plan: on amlodipine. ECHO 02/2018: normal LVEF. Code(s): I10 - ESSENTIAL (PRIMARY) HYPERTENSION (2) Dementia Code(s): F03.90 - UNSPECIFIED DEMENTIA WITHOUT BEHAVIORAL DISTURBANCE Qualifiers: Dementia type: unspecified type Dementia behavioral disturbance: without behavioral disturbance Qualified Code(s): F03.90 - Unspecified dementia without behavioral disturbance (3) Intertrochanteric fracture of left femur Code(s): S72.142A - DISPLACED INTERTROCHANTERIC FRACTURE OF LEFT FEMUR, INIT Qualifiers: Encounter type: initial encounter Fracture type: closed Fracture alignment: displaced Qualified Code(s): S72.142A - Displaced intertrochanteric fracture of left femur, initial encounter for closed fracture (4) Falls frequently Assessment/Plan: avoid dehydration. orthostatic vital signs. Latest fall has resulted in left hip fracture. Code(s): R29.6 - REPEATED FALLS (5) Diastolic CHF Code(s): I50.30 - UNSPECIFIED DIASTOLIC (CONGESTIVE) HEART FAILURE (6) Elevated troponin Assessment/Plan: TNI 0.58; CKMB relative index relatively low. EKG: NSR;LAD; poor R wave progression: r/o old anterior infarct; no acute ST-T changes. Noted greater elevations in the past two weeks (to maximum 1.06); ECHO at that time did not mention regional wall motion abnormalities. Code(s): R74.8 - ABNORMAL LEVELS OF OTHER SERUM ENZYMES (7) Compression fx, thoracic spine Code(s): S22.000A - WEDGE COMPRESSION FRACTURE OF UNSP THORACIC VERTEBRA, INIT
--- NOTE | 2018-03-31 10:46 | PN ---
Progress Note (short form) - Note Progress Note: events noted s/p fall, left hip fracture not in distress Vital Signs - 24 hr 03/30/18 03/30/18 03/30/18 12:38 17:20 19:56 Temperature 97.2 F L 98.0 F Pulse Rate 72 Pulse Rate [ 99 H 95 H Apical] Respiratory 16 20 20 Rate Blood Pressure 148/87 Blood Pressure 131/89 128/85 [Right Arm] O2 Sat by Pulse 100 95 Oximetry (%) 03/30/18 03/31/18 03/31/18 21:45 01:35 05:00 Temperature 97.3 F L 98.4 F 98 F Pulse Rate 98 H 89 86 Pulse Rate [ Apical] Respiratory 18 18 18 Rate Blood Pressure 105/71 114/71 114/66 Blood Pressure [Right Arm] O2 Sat by Pulse 95 Oximetry (%) 03/31/18 03/31/18 07:50 09:00 Temperature Pulse Rate 73 Pulse Rate [ Apical] Respiratory 18 Rate Blood Pressure 123/61 Blood Pressure [Right Arm] O2 Sat by Pulse 96 Oximetry (%) Current Medications Generic Name Dose Route Start Last Admin Trade Name Freq PRN Reason Stop Dose Admin Acetaminophen 650 mg 03/30/18 17:32 Tylenol - PO Q8H PRN PAIN Amlodipine Besylate 5 mg 03/31/18 10:00 03/31/18 09:33 Norvasc - PO 5 mg DAILY [facility] Administration Aspirin 81 mg 03/31/18 10:00 03/31/18 09:32 Asa - PO 81 mg DAILY [facility] Administration Cholecalciferol 1,000 unit 03/31/18 10:00 03/31/18 09:33 Vitamin D3 - PO 1,000 unit DAILY [facility] Administration Docusate Sodium 100 mg 03/30/18 22:00 03/31/18 09:33 Colace - PO 100 mg BID [facility] Administration Donepezil HCl 5 mg 03/30/18 22:00 03/30/18 21:59 Aricept - PO 5 mg HS [facility] Administration Haloperidol 0.5 mg 03/30/18 17:32 Haldol - PO HS PRN psychosis Heparin Sodium (Porcine) 5,000 unit 03/30/18 22:00 03/31/18 09:32 Heparin - SQ 5,000 unit BID [facility] Administration Meropenem 1 gm/ Dextrose 100 mls @ 200 mls/hr 03/31/18 02:00 03/31/18 09:32 IVPB 200 mls/hr Q8H-IV [facility] Administration Lactated Ringer's 1,000 ml in 1,000 mls @ 42 mls/hr 03/31/18 00:30 03/31/18 01:16 Lactated Ringers Solution IV 42 mls/hr ASDIR [facility] Administration Oxycodone HCl 5 mg 03/30/18 17:35 03/31/18 06:26 Roxicodone - PO 5 mg Q6H PRN Administration PAIN LEVEL 7 - 10 Paroxetine HCl 30 mg 03/31/18 10:00 03/31/18 09:35 Paxil - PO Not Given DAILY [facility] Senna 2 tab 03/30/18 22:00 03/30/18 21:59 Senna - PO 2 tab HS [facility] Administration Laboratory Results - last 24 hr 03/30/18 03/30/18 03/30/18 13:54 13:54 17:44 WBC 9.1 RBC 4.01 Hgb 12.6 Hct 37.1 MCV 92.5 MCH 31.4 MCHC 33.9 RDW 14.5 Plt Count 299 D MPV 8.6 Absolute Neuts (auto) 7.4 Neutrophils % 81.7 Lymphocytes % 10.0 D Monocytes % 6.3 Eosinophils % 1.3 Basophils % 0.7 Nucleated RBC % 0 PT with INR INR PTT (Actin FS) Sodium 136 Potassium 4.7 Chloride 101 Carbon Dioxide 28 Anion Gap 7 L BUN 13 Creatinine 0.6 Creat Clearance w eGFR > 60 Random Glucose 106 Calcium 9.0 Phosphorus Magnesium Total Bilirubin 0.9 AST 42 H ALT 31 Alkaline Phosphatase 156 H Creatine Kinase 181 Creatine Kinase Index 2.9 CK-MB (CK-2) 5.3 H Troponin I 0.58 H Total Protein 6.6 Albumin 3.2 L Resin T3 Uptake Urine Color Ltyellow Urine Appearance Clear Urine pH 8.0 D Ur Specific [place] 1.012 Urine Protein 1+ H Urine Glucose (UA) Negative Urine Ketones Trace H Urine Blood Negative Urine Nitrite Negative Urine Bilirubin Negative Urine Urobilinogen Negative Ur Leukocyte Esterase Negative Urine WBC (Auto) 2 Urine RBC (Auto) 2 Ur Epithelial Cells Rare Urine Mucus Rare 03/31/18 03/31/18 03/31/18 05:30 05:30 05:30 WBC 6.3 RBC 3.05 L Hgb 10.0 L Hct 28.0 L D MCV 91.9 MCH 32.8 MCHC 35.7 RDW 14.7 Plt Count 273 MPV 9.3 Absolute Neuts (auto) 5.0 Neutrophils % 79.2 Lymphocytes % 12.2 D Monocytes % 7.3 Eosinophils % 0.7 Basophils % 0.6 Nucleated RBC % 0 PT with INR 12.90 INR 1.09 PTT (Actin FS) 28.6 Sodium 137 Potassium 4.6 Chloride 101 Carbon Dioxide 29 Anion Gap 7 L BUN 19 H Creatinine 0.7 Creat Clearance w eGFR > 60 Random Glucose 98 Calcium 8.5 Phosphorus 3.6 Magnesium 2.2 Total Bilirubin 0.8 AST 34 ALT 25 Alkaline Phosphatase 135 H Creatine Kinase 175 Creatine Kinase Index 2.9 CK-MB (CK-2) 5.2 H Troponin I 0.45 H Total Protein 5.7 L Albumin 2.7 L Resin T3 Uptake 39.2 H Urine Color Urine Appearance Urine pH Ur Specific [place] Urine Protein Urine Glucose (UA) Urine Ketones Urine Blood Urine Nitrite Urine Bilirubin Urine Urobilinogen Ur Leukocyte Esterase Urine WBC (Auto) Urine RBC (Auto) Ur Epithelial Cells Urine Mucus S1 S2 RRR Lungs decreased Abd- soft, NT No edema Left hip tender+ PLAN Cardiology eval noted troponins trending down Ortho eval keep NPO iv fluids Problem List - Problems (1) Elevated troponin Code(s): R74.8 - ABNORMAL LEVELS OF OTHER SERUM ENZYMES (2) HTN (hypertension) Code(s): I10 - ESSENTIAL (PRIMARY) HYPERTENSION (3) Intertrochanteric fracture of left femur Code(s): S72.142A - DISPLACED INTERTROCHANTERIC FRACTURE OF LEFT FEMUR, INIT Qualifiers: Encounter type: initial encounter Fracture type: closed Fracture alignment: displaced Qualified Code(s): S72.142A - Displaced intertrochanteric fracture of left femur, initial encounter for closed fracture (4) Falls frequently Code(s): R29.6 - REPEATED FALLS
[2018-03-31] MEDS ORDERED: BUPIVACAINE HCL/PF 0.5% (5MG/ML) 10 ML VIAL ONE (15:24)
--- NOTE | 2018-03-31 15:40 | PN ---
Progress Note (short form) - Note Progress Note: Pt seen and examined, agree with Dr Canas consult. 83 yo [place] resident recent hospital admit for UTI. Recently ambulated with walker indoors but has been in WC since admit. Fell and fx left hip (comminuted IT fx) yesterday. Admitted to for left hip fx. Pt with dementia. Exam shows short ER left le. NVID. Xray/CT: comminuted displaced IT fx. IMP: Left IT fx PLAN: dw pt and daughter Doris Herring the dx and tx options. Understands that regardless of treatment any patient with a hip fx has a relatively high morbidity and mortality risk. However the potential complications of immobility would almost certainly be severe and the best way to limit risk and return patient to as good a quality of life and function as possible that surgical repair would be the best option. However this comes at a higher initial risk. They would like to proceed with ORIF.
[2018-03-31] MEDS ORDERED: ceFAZolin SODIUM 1 GM VIAL ONE (16:05)
[2018-03-31] MEDS ORDERED: MIDAZOLAM HCL 2 MG/2 ML SINGLE DOSE VIAL ONE (16:06)
[2018-03-31] MEDS ORDERED: ceFAZolin SODIUM 1 GM VIAL IVPB ONE (16:23)
--- NOTE | 2018-03-31 17:13 | OP ---
Operative Note - Note: Operative Date: 03/31/18 Pre-Operative Diagnosis: Left IT femur fx Operation: ORIF c IMN Implants: Hersey gamma Post-Operative Diagnosis: Same as Pre-op Surgeon: Kiran Zepeda I Drafter (Cad) Electrical: Sha Farfan Anesthesia: Spinal Estimated Blood Loss (mls): 100 Operative Report Dictated: Yes
[2018-03-31] MEDS ORDERED: oxyCODONE HCL 5 MG TABLET PO PRN (17:25)
[2018-03-31] MEDS ORDERED: HALOPERIDOL 0.5 MG TABLET PO PRN (17:25)
[2018-03-31] MEDS ORDERED: MEROPENEM 1 GM in DEXTROSE 5%-WATER 100 ML IVPB SCH (18:00)
--- NOTE | 2018-03-31 18:14 | OP ---
DATE OF OPERATION: 03/31/2018 PREOPERATIVE DIAGNOSIS: Left hip comminuted displaced intertrochanteric femur fracture. POSTOPERATIVE DIAGNOSIS: Left hip comminuted displaced intertrochanteric femur fracture. OPERATIVE PROCEDURE: Open reduction and internal fixation of left hip intertrochanteric fracture with intramedullary device. SURGEON: Kiran Zepeda MD SPUDDER: Sha Farfan PA-C ANESTHESIA: Spinal. COMPLICATIONS: None. ESTIMATED BLOOD LOSS: 100 mL. INDICATION FOR PROCEDURE: The patient is an 83-year-old female with above findings indicated for operative treatment. Risks, benefits, and alternatives were discussed with patient and daughter at length, and proper informed consent was obtained. DESCRIPTION OF PROCEDURE: After proper identification of the patient and the correct operative site, patient was brought to the operating room and spinal anesthesia was initiated. The patient was then transferred to the fracture table with all points of contact well padded. Reduction maneuver was performed on the left hip and radiographs were taken to confirm proper reduction of the fracture. Left lower extremity was prepped and draped in the usual sterile fashion. Percutaneous guidewire was placed through the greater trochanter into the femoral shaft proximally. Incision was then made over the guidewire, and the entry hole was reamed. A [place] Gamma Nail short 130-degree 10-mm nail was then placed over the guidewire into the appropriate position. With the fracture still reduced, a guidewire was placed for the lag screw into the femoral head. Central position was achieved in this in the subchondral bone. This was then reamed, and a lag screw was then placed. Using the jig, the distal locking screw was then placed. This provided a secure, stable fixation of the fracture in satisfactory position. Wounds were irritated and repaired with 3-0 Vicryl and skin yolie. Sterile dressings were applied. Patient was reversed from anesthesia and brought to recovery room in stable condition. She tolerated the procedure well. Sha Farfan PA-C, the clinical lab assistant was interval throughout the procedure. Procedure could not have been performed without the skilled help of the clinical lab assistant. Alem NUNES/[id number]
[2018-03-31] MEDS: CEFAZOLIN 2 GM/D5W 2 GM/50 ML ML IVPB SCH ×2 (18:54→22:14)
[2018-03-31] MEDS: SENNOSIDES 8.6MG TABLET (FP) PO SCH (22:13)
[2018-03-31] MEDS: DONEPEZIL HCL 5 MG TABLET (FP) PO SCH (22:13)
[2018-03-31] MEDS: ACETAMINOPHEN 325 MG TABLET (FP) PO PRN (23:14)
[2018-04-01] MEDS: CEFAZOLIN 2 GM/D5W 2 GM/50 ML ML IVPB SCH (05:09)
[2018-04-01 08:17] LABS: HEMOGLOBIN 8.5 GM/dL (10.7-15.3); MCH 32.3 pg (25.7-33.7); MCHC 35.2 g/dl (32.0-36.0); MEAN CELL VOLUME 91.8 fl (80-96); MEAN PLT VOLUME 8.6 fl (7.5-11.1); PLATELET COUNT 223 K/MM3 (134-434); RBC 2.61 M/mm3 (3.60-5.2); RDW 14.1 % (11.6-15.6); WHITE BLOOD COUNT 6.3 K/mm3 (4.0-10.0)
[2018-04-01 08:53] LABS: ALBUMIN 2.4 g/dl (3.4-5.0); ALK PHOS 110 U/L (45-117); ANION GAP 7 MMOL/L (8-16); BILIRUBIN,TOTAL 0.7 mg/dL (0.2-1); BLOOD UREA NITROGEN 19 mg/dL (7-18); CALCIUM 8.3 mg/dL (8.5-10.1); CHLORIDE 100 mmol/L (98-107); CO2 30 mmol/L (21-32); CREATININE 0.6 mg/dL (0.55-1.3); GLUCOSE,RANDOM 106 mg/dL (74-106); POTASSIUM 4.3 mmol/L (3.5-5.1); SGOT/AST 33 U/L (15-37); SGPT/ALT 19 U/L (13-61); SODIUM 137 mmol/L (136-145); TOT PROT 5.1 g/dl (6.4-8.2)
[2018-04-01] MEDS ORDERED: PARoxetine HCL 30 MG TABLET PO SCH (10:00)
--- NOTE | 2018-04-01 10:26 | PN ---
Progress Note (short form) - Note Progress Note: s/p surgery for left hip fracture no distress Vital Signs - 24 hr 03/31/18 03/31/18 03/31/18 14:00 17:00 17:09 Temperature 97.4 F L 97.4 F L 97.5 F L Pulse Rate 89 83 95 H Respiratory 20 20 Rate Blood Pressure 117/74 118/70 85/59 L O2 Sat by Pulse 100 Oximetry (%) 03/31/18 03/31/18 03/31/18 17:25 17:40 17:55 Temperature Pulse Rate 88 82 76 Respiratory 22 H 20 16 Rate Blood Pressure 85/52 L 97/62 113/71 O2 Sat by Pulse 100 100 100 Oximetry (%) 03/31/18 03/31/18 03/31/18 18:15 20:30 21:00 Temperature 98.0 F 97.4 F L Pulse Rate 82 94 H Respiratory 18 20 Rate Blood Pressure 118/60 136/85 O2 Sat by Pulse 95 Oximetry (%) 04/01/18 04/01/18 04/01/18 02:32 06:00 10:00 Temperature 99.4 F 98.4 F 98 F Pulse Rate 104 H 98 H 98 H Respiratory 20 20 20 Rate Blood Pressure 116/75 124/69 118/68 O2 Sat by Pulse Oximetry (%) Current Medications Generic Name Dose Route Start Last Admin Trade Name Freq PRN Reason Stop Dose Admin Acetaminophen 650 mg 03/31/18 17:25 Tylenol - PO Q8H PRN PAIN Amlodipine Besylate 5 mg 04/01/18 10:00 04/01/18 10:41 Norvasc - PO 5 mg DAILY [facility] Administration Aspirin 81 mg 04/01/18 10:00 04/01/18 10:40 Asa - PO 81 mg DAILY [facility] Administration Cholecalciferol 1,000 unit 04/01/18 10:00 04/01/18 10:41 Vitamin D3 - PO 1,000 unit DAILY [facility] Administration Docusate Sodium 100 mg 03/31/18 22:00 04/01/18 10:41 Colace - PO 100 mg BID [facility] Administration Donepezil HCl 5 mg 03/31/18 22:00 03/31/18 22:13 Aricept - PO 5 mg HS [facility] Administration Enoxaparin Sodium 40 mg 04/02/18 10:00 Lovenox - SQ DAILY [facility] Haloperidol 0.5 mg 03/31/18 17:25 Haldol - PO HS PRN psychosis Lactated Ringer's 1,000 ml in 1,000 mls @ 42 mls/hr 03/31/18 17:25 03/31/18 18:15 Lactated Ringers Solution IV 0 mls ASDIR [facility] Administration Meropenem 1 gm/ Dextrose 100 mls @ 200 mls/hr 03/31/18 18:00 IVPB Q8H-IV [facility] Oxycodone HCl 5 mg 03/31/18 17:25 Roxicodone - PO Q6H PRN PAIN LEVEL 7 - 10 Paroxetine HCl 20 mg/ 30 mg 04/01/18 10:00 04/01/18 10:43 Paroxetine HCl 10 mg PO 30 mg DAILY [facility] Administration Senna 2 tab 03/31/18 22:00 03/31/18 22:13 Senna - PO 2 tab HS [facility] Administration Laboratory Results - last 24 hr 03/31/18 04/01/18 04/01/18 12:15 06:00 07:25 WBC 6.3 RBC 2.61 L Hgb 8.5 L Hct 24.0 L MCV 91.8 MCH 32.3 MCHC 35.2 RDW 14.1 Plt Count 223 MPV 8.6 Sodium 137 Potassium 4.3 Chloride 100 Carbon Dioxide 30 Anion Gap 7 L BUN 19 H Creatinine 0.6 Creat Clearance w eGFR > 60 Random Glucose 106 Calcium 8.3 L Total Bilirubin 0.7 AST 33 ALT 19 Alkaline Phosphatase 110 Creatine Kinase 146 Troponin I 0.43 H Total Protein 5.1 L Albumin 2.4 L Lungs decreased Abd- soft, NT No edema Left hip tender+ PLAN dc iv fluids encourage po ID eval-- pt was on IV meropenum from last admission for UTI - needs about 10 more days pain control DVT prophylaxis monitor H/HCT Problem List - Problems (1) Elevated troponin Code(s): R74.8 - ABNORMAL LEVELS OF OTHER SERUM ENZYMES (2) HTN (hypertension) Code(s): I10 - ESSENTIAL (PRIMARY) HYPERTENSION (3) Intertrochanteric fracture of left femur Code(s): S72.142A - DISPLACED INTERTROCHANTERIC FRACTURE OF LEFT FEMUR, INIT Qualifiers: Encounter type: initial encounter Fracture type: closed Fracture alignment: displaced Qualified Code(s): S72.142A - Displaced intertrochanteric fracture of left femur, initial encounter for closed fracture (4) Falls frequently Code(s): R29.6 - REPEATED FALLS
[2018-04-01] MEDS ORDERED: PT OWN MED DRAWER 7, Y5N ONE (10:39)
[2018-04-01] MEDS: ASPIRIN 81 MG CHEWABLE TABLETS PO SCH (10:40)
[2018-04-01] MEDS: DOCUSATE SODIUM 100 MG CAPSULE (FP) PO SCH ×2 (10:41→21:51)
[2018-04-01] MEDS: CHOLECALCIFEROL (VITAMIN D3) 1,000 UNIT TABLET (FP) PO SCH (10:41)
[2018-04-01] MEDS: amLODIPine BESYLATE 5 MG TABLET (FP) PO SCH (10:41)
[2018-04-01] MEDS: PAROXETINE HCL 20 MG, PAROXETINE HCL 10 MG PO SCH (10:43)
--- NOTE | 2018-04-01 11:51 | PN ---
Progress Note, Physician Chief Complaint: Pt lying in bed; speaks very softly; knows she is in a hospital; does not know the date. Moves extremities weakly on request. Denies pain. History of Present Illness: 83 yo F with a hx of HTN, major depressive disorder, dementia, and recurrent falls presents to the emergency department s/p fall that occurred at her [facility] at 10:44 AM at [facility] that was unwitnessed. Per the patient, she has no recollection of the fall and only states that she has pain in her right occipital region and left lateral hip. Per the daughter (Doris), she was notified of the fall but did not have additional details. Patient denies antecedent symptoms to the fall. Denies the following: fever, chills, chest pain , headache, SOB, palpitations, nausea, vomiting, abdominal pain, dysuria, hematuria, diarrhea, hematochezia, and leg pain/swelling. Allergies: PCN Medications: No anticoagulation use. On aspirin 81 mg. - Current Medication List Current Medications: Active Medications Acetaminophen (Tylenol -) 650 mg PO Q8H PRN PRN Reason: PAIN Amlodipine Besylate (Norvasc -) 5 mg PO DAILY [facility] Last Admin: 04/01/18 10:41 Dose: 5 mg Aspirin (Asa -) 81 mg PO DAILY [facility] Last Admin: 04/01/18 10:40 Dose: 81 mg Cholecalciferol (Vitamin D3 -) 1,000 unit PO DAILY [facility] Last Admin: 04/01/18 10:41 Dose: 1,000 unit Docusate Sodium (Colace -) 100 mg PO BID [facility] Last Admin: 04/01/18 10:41 Dose: 100 mg Donepezil HCl (Aricept -) 5 mg PO HS [facility] Last Admin: 03/31/18 22:13 Dose: 5 mg Enoxaparin Sodium (Lovenox -) 40 mg SQ DAILY [facility] Haloperidol (Haldol -) 0.5 mg PO HS PRN PRN Reason: psychosis Lactated Ringer's (Lactated Ringers Solution) 1,000 ml in 1,000 mls @ 42 mls/ hr IV ASDIR [facility] Last Admin: 03/31/18 18:15 Dose: 0 mls Meropenem 1 gm/ Dextrose 100 mls @ 200 mls/hr IVPB Q8H-IV [facility] Oxycodone HCl (Roxicodone -) 5 mg PO Q6H PRN PRN Reason: PAIN LEVEL 7 - 10 Paroxetine HCl 20 mg/ (Paroxetine HCl 10 mg) 30 mg PO DAILY [facility] Last Admin: 04/01/18 10:43 Dose: 30 mg Senna (Senna -) 2 tab PO HS [facility] Last Admin: 03/31/18 22:13 Dose: 2 tab - Objective Vital Signs: Vital Signs Temperature 98 F 04/01/18 10:00 Pulse Rate 98 H 04/01/18 10:00 Respiratory Rate 20 04/01/18 10:00 Blood Pressure 118/68 04/01/18 10:00 O2 Sat by Pulse Oximetry (%) 95 03/31/18 21:00 Constitutional: Yes: Thin Eyes: Yes: WNL HENT: Yes: WNL Neck: Yes: WNL Cardiovascular: Yes: WNL, S1, S2 Respiratory: Yes: Regular Gastrointestinal: Yes: Soft ...Rectal Exam: Yes: Deferred Genitourinary: No: Anuria Breast(s): Yes: WNL Musculoskeletal: Yes: Joint Stiffness, Muscle Weakness Extremities: Yes: Cool Edema: No Peripheral Pulses WNL: No Peripheral Pulses: Left Doralis Pedis: 1+, Right Dorsalis Pedis: 1+ Integumentary: Yes: Incision Wound/Incision: Yes: Dressing Dry and Intact Neurological: Yes: Confusion, Weakness Psychiatric: Yes: Other (dementia) Labs: CBC, BMP 04/01/18 07:25 04/01/18 06:00 INR, PTT INR 1.09 (0.83-1.09) 03/31/18 05:30 Abnormal Lab Results 04/02/18 05:30 RBC 2.53 L Hgb 8.1 L Hct 23.5 L Problem List - Problems (1) HTN (hypertension) Assessment/Plan: on amlodipine. ECHO 02/2018: normal LVEF. Code(s): I10 - ESSENTIAL (PRIMARY) HYPERTENSION (2) Dementia Code(s): F03.90 - UNSPECIFIED DEMENTIA WITHOUT BEHAVIORAL DISTURBANCE Qualifiers: Dementia type: unspecified type Dementia behavioral disturbance: without behavioral disturbance Qualified Code(s): F03.90 - Unspecified dementia without behavioral disturbance (3) Intertrochanteric fracture of left femur Assessment/Plan: s/p ORIF left femur. Pain management; physical rehabilitation. Code(s): S72.142A - DISPLACED INTERTROCHANTERIC FRACTURE OF LEFT FEMUR, INIT Qualifiers: Encounter type: initial encounter Fracture type: closed Fracture alignment: displaced Qualified Code(s): S72.142A - Displaced intertrochanteric fracture of left femur, initial encounter for closed fracture (4) Falls frequently Assessment/Plan: avoid dehydration. orthostatic vital signs. Latest fall has resulted in left hip fracture-->repair. Code(s): R29.6 - REPEATED FALLS (5) Diastolic CHF Code(s): I50.30 - UNSPECIFIED DIASTOLIC (CONGESTIVE) HEART FAILURE (6) Elevated troponin Assessment/Plan: TNI 0.58; CKMB relative index relatively low. EKG: NSR;LAD; poor R wave progression: r/o old anterior infarct; no acute ST-T changes. Noted greater elevations in the past two weeks (to maximum 1.06); ECHO at that time did not mention regional wall motion abnormalities. Code(s): R74.8 - ABNORMAL LEVELS OF OTHER SERUM ENZYMES (7) Compression fx, thoracic spine Code(s): S22.000A - WEDGE COMPRESSION FRACTURE OF UNSP THORACIC VERTEBRA, INIT
--- NOTE | 2018-04-01 13:55 | PN ---
Progress Note (short form) - Note Progress Note: 83 yo F with a history of HTN, major depressive disorder, dementia, and recurrent falls, s/p left IM nail placement yesterday. The patient is lying comfortably in bed. No complaints at this time. Last Vital Signs Temp Pulse Resp BP Pulse Ox 98 F 98 H 20 118/68 95 04/01/18 10:00 04/01/18 10:00 04/01/18 10:00 04/01/18 10:00 03/31/18 21:00 PE: LLE Dressing clean, dry and intact Calves soft, nontender Neurovascularly intact Cap refill intact Laboratory Results - last 24 hr 04/01/18 04/01/18 06:00 07:25 WBC 6.3 RBC 2.61 L Hgb 8.5 L Hct 24.0 L MCV 91.8 MCH 32.3 MCHC 35.2 RDW 14.1 Plt Count 223 MPV 8.6 Sodium 137 Potassium 4.3 Chloride 100 Carbon Dioxide 30 Anion Gap 7 L BUN 19 H Creatinine 0.6 Creat Clearance w eGFR > 60 Random Glucose 106 Calcium 8.3 L Total Bilirubin 0.7 AST 33 ALT 19 Alkaline Phosphatase 110 Total Protein 5.1 L Albumin 2.4 L A: S/p left IM nail placement P: Repeat labs tomorrow to watch trending hct Pain control DVT prophylaxis To start PT today Weight bearing as tolerated
--- NOTE | 2018-04-01 17:46 | CON.ID ---
Consult Consult Specialty:: infectious diseases Referred by:: esbl uti,hip fracture Reason for Consultation:: abx - History of Present Illness Chief Complaint: hip fracture History of Present Illness: 83 year old female, with a significant PMH of HTN, alzheimer's, gait difficulty , multiple falls and dementia who presents to the emergency department from [facility] after an unwitnessed fall. pt was found on the ground . Pt unable to recall the events that led to her fall but complains of L hip pain and headache. Of note, patient was recently discharged from the hospital with a picc line for meropenem for a UTI. and was continuing the treatment for the same patient was supposed to finish it on the patients repeat urine cx ahs now come negative patient underwent orif - History Source History Provided By: Medical Record Limitations to Obtaining History: Clinical Condition - Past Medical History SOFTWARE SECURITY ARCHITECT: Yes: Alzheimer's Cardio/Vascular: Yes: HTN Musculoskeletal: Yes: Osteoarthritis - Alcohol/Substance Use Hx Alcohol Use: No History of Substance Use: reports: None - Smoking History Smoking history: Never smoked Have you smoked in the past 12 months: No - Social History ADL: Support Services History of Recent Travel: No Home Medications - Allergies Allergies/Adverse Reactions: Allergies Allergy/AdvReac Type Severity Reaction Status Date / Time Penicillins Allergy Verified 03/30/18 12:57 - Home Medications Home Medications: Ambulatory Orders Acetaminophen [Tylenol] 650 mg PO Q8H PRN 03/16/18 Amlodipine Besylate 5 mg PO DAILY 03/16/18 Cholecalciferol (Vitamin D3) [Vitamin D3] 1,000 unit PO DAILY 03/16/18 Donepezil HCl 5 mg PO HS 03/16/18 Haloperidol [Haldol -] 0.5 mg PO HS PRN 03/16/18 Paroxetine HCl [Paxil] 30 mg PO DAILY 03/16/18 Aspirin [ASA -] 81 mg PO DAILY tab.chew 03/22/18 Heparin - 5,000 unit SQ BID vial 03/22/18 Meropenem [Merrem (Restricted To Id) -] 1 gm IVPB Q8H-IV vial 03/22/18 Review of Systems Unable to obtain ROS, reason: unable to obtain Physical Exam Vital Signs: Vital Signs Temperature 98.1 F 04/01/18 14:00 Pulse Rate 95 H 04/01/18 14:00 Respiratory Rate 20 04/01/18 10:00 Blood Pressure 124/76 04/01/18 14:00 O2 Sat by Pulse Oximetry (%) 95 03/31/18 21:00 Constitutional: Yes: No Distress, Calm Cardiovascular: Yes: S1, S2 Respiratory: Yes: Regular, CTA Bilaterally Gastrointestinal: Yes: Normal Bowel Sounds, Soft Musculoskeletal: Yes: Other Extremities: Yes: Other Neurological: Yes: Alert, Other Psychiatric: Yes: Other Labs: CBC, BMP 04/01/18 07:25 04/01/18 06:00 Imaging - Results Chest X-ray: Report Reviewed, Image Reviewed Cat Scan: Report Reviewed, Image Reviewed Assessment/Plan Problem List - Problems (1) Elevated troponin Code(s): R74.8 - ABNORMAL LEVELS OF OTHER SERUM ENZYMES (2) HTN (hypertension) Code(s): I10 - ESSENTIAL (PRIMARY) HYPERTENSION (3) Intertrochanteric fracture of left femur Code(s): S72.142A - DISPLACED INTERTROCHANTERIC FRACTURE OF LEFT FEMUR, INIT Qualifiers: Encounter type: initial encounter Fracture type: closed Fracture alignment: displaced Qualified Code(s): S72.142A - Displaced intertrochanteric fracture of left femur, initial encounter for closed fracture (4) Falls frequently Code(s): R29.6 - REPEATED FALLS i have looked at the reports and the duration which was advised on the patient currently the patient is negative and i am not going to give her abx any more i think we can remove the picc line if she is not going to get anything iv rest continue current mgmt
[2018-04-01] MEDS: SENNOSIDES 8.6MG TABLET (FP) PO SCH (21:51)
[2018-04-01] MEDS: DONEPEZIL HCL 5 MG TABLET (FP) PO SCH (21:51)
[2018-04-02 06:23] LABS: BASO % 0.6 % (0-2.0); EOS % 2.1 % (0-4.5); HEMATOCRIT 23.5 % (32.4-45.2); HEMOGLOBIN 8.1 GM/dL (10.7-15.3); LYMPH % 16.2 % (8-40); MCHC 34.5 g/dl (32.0-36.0); MEAN CELL VOLUME 92.8 fl (80-96); MONO % 9.4 % (3.8-10.2); NEUT % 71.7 % (42.8-82.8); PLATELET COUNT 226 K/MM3 (134-434); RBC 2.53 M/mm3 (3.60-5.2); RDW 14.6 % (11.6-15.6); WHITE BLOOD COUNT 5.5 K/mm3 (4.0-10.0)
--- NOTE | 2018-04-02 08:22 | PN ---
Progress Note (short form) - Note Progress Note: 83 yo F with a history of HTN, major depressive disorder, dementia, and recurrent falls, s/p left IM nail placement on 03/31/18. The patient is lying comfortably in bed. As per nursing, patient complains of left hip discomfort but does not want anything for the pain. Last Vital Signs Temp Pulse Resp BP Pulse Ox 98.9 F 88 20 105/66 96 04/02/18 06:00 04/02/18 06:00 04/02/18 06:00 04/02/18 06:00 04/01/18 21:00 PE: LLE Dressing clean, dry and intact Calves soft, nontender Neurovascularly intact Cap refill intact Laboratory Results - last 24 hr 04/01/18 04/01/18 04/02/18 06:00 07:25 05:30 WBC 6.3 5.5 RBC 2.61 L 2.53 L Hgb 8.5 L 8.1 L Hct 24.0 L 23.5 L MCV 91.8 92.8 MCH 32.3 32.0 MCHC 35.2 34.5 RDW 14.1 14.6 Plt Count 223 226 MPV 8.6 9.0 Absolute Neuts (auto) 4.0 Neutrophils % 71.7 Lymphocytes % 16.2 D Monocytes % 9.4 Eosinophils % 2.1 D Basophils % 0.6 Nucleated RBC % 0 Sodium 137 Potassium 4.3 Chloride 100 Carbon Dioxide 30 Anion Gap 7 L BUN 19 H Creatinine 0.6 Creat Clearance w eGFR > 60 Random Glucose 106 Calcium 8.3 L Total Bilirubin 0.7 AST 33 ALT 19 Alkaline Phosphatase 110 Total Protein 5.1 L Albumin 2.4 L A: S/p left IM nail placement P: Repeat labs again tomorrow to watch trending hct Pain control DVT prophylaxis To start PT today, did not see her yesterday Weight bearing as tolerated
[2018-04-02] MEDS ORDERED: PT OWN MED DRAWER 7, Y5N ONE (09:56)
--- NOTE | 2018-04-02 10:19 | ECHO ---
Name: CHRIS BEAULIEU Exam:Adult Echocardiogram Study Date: 04/02/2018 08:33 AM Age: 83 yrs Reason For Study: ef Height: 59 in Weight: 121 lb BSA: 1.5 m2 MMode/2D Measurements & Calculations IVSd: 0.92 cm Ao root diam: 3.2 cm LVIDd: 4.8 cm LA dimension: 2.0 cm LVIDs: 3.4 cm LVPWd: 1.0 cm LVPWs: 1.1 cm EDV(Teich): 105.2 ml ESV(Teich): 46.7 ml LVOT diam: 2.1 cm TAPSE: 1.9 cm RV S Julius: 14.5 cm/sec Doppler Measurements & Calculations MV E max julius: 62.2 cm/sec Ao V2 max: 135.7 cm/sec MV A max julius: 105.1 cm/sec Ao max P.4 mmHg MV E/A: 0.59 MV dec time: 0.10 sec MARTHA(V,D): 3.0 cm2 LV V1 max P.2 mmHg PA V2 max: 103.2 cm/sec LV V1 max: 114.5 cm/sec PA max P.3 mmHg Med Peak E' Julius: 6.0 cm/sec Med E/e': 10.3 Lat Peak E' Julius: 5.6 cm/sec Lat E/e': 11.2 Left Ventricle There is mild concentric left ventricular hypertrophy. The left ventricle is hyperdynamic. Ejection F raction = 65-70%. The transmitral spectral Doppler flow pattern is suggestive of impaired LV relaxation. Right Ventricle The right ventricle is grossly normal size. The right ventricular systolic function is grossly normal . Atria The left atrium is borderline dilated. Right atrium not well visualized. Mitral Valve There is mild mitral annular calcification. There is no mitral valve stenosis. There is mild mitral regurgitation. Tricuspid Valve The tricuspid valve is normal in structure and function. Aortic Valve There is mild aortic sclerosis.;. No hemodynamically significant valvular aortic stenosis. No aortic regurgitation is present. Pulmonic Valve The pulmonic valve is not well seen, but is grossly normal. There is no pulmonic valvular stenosis. T here is no pulmonic valvular regurgitation. Great Vessels The aortic root is normal size. Pericardium/Pleura Trivial pericardial effusion not hemodynamically significant. Interpretation Summary There is mild concentric left ventricular hypertrophy. The left ventricle is hyperdynamic. Ejection Fraction = 65-70%. The transmitral spectral Doppler flow pattern is suggestive of impaired LV relaxation. There is mild mitral annular calcification. There is mild mitral regurgitation. There is mild aortic sclerosis.; Trivial pericardial effusion not hemodynamically significant MD Aquilino Alcaraz 04/02/2018 10:18 AM
[2018-04-02] MEDS: ACETAMINOPHEN 325 MG TABLET (FP) PO PRN ×2 (10:52→22:21)
[2018-04-02] MEDS: ASPIRIN 81 MG CHEWABLE TABLETS PO SCH (10:53)
[2018-04-02] MEDS: PAROXETINE HCL 20 MG, PAROXETINE HCL 10 MG PO SCH (10:53)
[2018-04-02] MEDS: DOCUSATE SODIUM 100 MG CAPSULE (FP) PO SCH ×2 (10:53→22:21)
[2018-04-02] MEDS: CHOLECALCIFEROL (VITAMIN D3) 1,000 UNIT TABLET (FP) PO SCH (10:54)
[2018-04-02] MEDS: ENOXAPARIN NA (PORCINE) 40 MG/0.4 ML DISP.SYRIN SQ SCH (10:54)
[2018-04-02] MEDS: amLODIPine BESYLATE 5 MG TABLET (FP) PO SCH (10:54)
--- NOTE | 2018-04-02 11:52 | PN ---
Progress Note (short form) - Note Progress Note: pt seen/ examined chart reviewed awake/ comfortable no distress decrease in h/h. Vital Signs Temp 98 F 04/02/18 10:00 Pulse 90 04/02/18 10:00 Resp 18 04/02/18 10:00 BP 117/68 04/02/18 10:00 Pulse Ox 96 04/01/18 21:00 Intake & Output 04/01/18 04/01/18 04/02/18 11:59 23:59 11:59 Intake Total 520 10 10 Balance 520 10 10 Intake: IV 420 10 10 LACTATED RINGERS SOLUTION 420 1,000 ml In 1,000 ml @ 42 mls/hr IV ASDIR [facility] Rx #:[id number] SALINE LOCK 10 10 IVPB 100 Oral 0 0 Other: Voiding Method Diaper Diaper Diaper # Unmeasured Voids Void 2 2 Bowel Movement No No Active Medications Acetaminophen (Tylenol -) 650 mg PO Q8H PRN PRN Reason: PAIN Last Admin: 04/02/18 10:52 Dose: 650 mg Amlodipine Besylate (Norvasc -) 5 mg PO DAILY [facility] Last Admin: 04/02/18 10:54 Dose: 5 mg Aspirin (Asa -) 81 mg PO DAILY [facility] Last Admin: 04/02/18 10:53 Dose: 81 mg Cholecalciferol (Vitamin D3 -) 1,000 unit PO DAILY [facility] Last Admin: 04/02/18 10:54 Dose: 1,000 unit Docusate Sodium (Colace -) 100 mg PO BID [facility] Last Admin: 04/02/18 10:53 Dose: 100 mg Donepezil HCl (Aricept -) 5 mg PO HS [facility] Last Admin: 04/01/18 21:51 Dose: 5 mg Enoxaparin Sodium (Lovenox -) 40 mg SQ DAILY [facility] Last Admin: 04/02/18 10:54 Dose: 40 mg Haloperidol (Haldol -) 0.5 mg PO HS PRN PRN Reason: psychosis Meropenem 1 gm/ Dextrose 100 mls @ 200 mls/hr IVPB Q8H-IV [facility] Oxycodone HCl (Roxicodone -) 5 mg PO Q6H PRN PRN Reason: PAIN LEVEL 7 - 10 Paroxetine HCl 20 mg/ (Paroxetine HCl 10 mg) 30 mg PO DAILY [facility] Last Admin: 04/02/18 10:53 Dose: 30 mg Senna (Senna -) 2 tab PO HS [facility] Last Admin: 04/01/18 21:51 Dose: 2 tab CBC, BMP 04/02/18 05:30 04/01/18 06:00 Physical exam. Comfortable Lungs--decreased at bases Abd- soft, NT No edema PLAN stable monitor h/h transfuse if hb<7 pain control DVT prophylaxis PT D/c planning d/c picc line off abx will follow. discussed with nursing staff also
--- NOTE | 2018-04-02 15:42 | PN ---
Progress Note, Physician - Current Medication List Current Medications: Active Medications Acetaminophen (Tylenol -) 650 mg PO Q8H PRN PRN Reason: PAIN Last Admin: 04/02/18 10:52 Dose: 650 mg Amlodipine Besylate (Norvasc -) 5 mg PO DAILY [facility] Last Admin: 04/02/18 10:54 Dose: 5 mg Aspirin (Asa -) 81 mg PO DAILY [facility] Last Admin: 04/02/18 10:53 Dose: 81 mg Cholecalciferol (Vitamin D3 -) 1,000 unit PO DAILY [facility] Last Admin: 04/02/18 10:54 Dose: 1,000 unit Docusate Sodium (Colace -) 100 mg PO BID [facility] Last Admin: 04/02/18 10:53 Dose: 100 mg Donepezil HCl (Aricept -) 5 mg PO HS [facility] Last Admin: 04/01/18 21:51 Dose: 5 mg Enoxaparin Sodium (Lovenox -) 40 mg SQ DAILY [facility] Last Admin: 04/02/18 10:54 Dose: 40 mg Haloperidol (Haldol -) 0.5 mg PO HS PRN PRN Reason: psychosis Meropenem 1 gm/ Dextrose 100 mls @ 200 mls/hr IVPB Q8H-IV [facility] Oxycodone HCl (Roxicodone -) 5 mg PO Q6H PRN PRN Reason: PAIN LEVEL 7 - 10 Paroxetine HCl 20 mg/ (Paroxetine HCl 10 mg) 30 mg PO DAILY [facility] Last Admin: 04/02/18 10:53 Dose: 30 mg Senna (Senna -) 2 tab PO HS [facility] Last Admin: 04/01/18 21:51 Dose: 2 tab - Objective Vital Signs: Vital Signs Temperature 98 F 04/02/18 10:00 Pulse Rate 90 04/02/18 10:00 Respiratory Rate 18 04/02/18 10:00 Blood Pressure 117/68 04/02/18 10:00 O2 Sat by Pulse Oximetry (%) 99 04/02/18 09:00 Labs: CBC, BMP 04/02/18 05:30 04/01/18 06:00 INR, PTT INR 1.09 (0.83-1.09) 03/31/18 05:30
[2018-04-02] MEDS: DONEPEZIL HCL 5 MG TABLET (FP) PO SCH (22:21)
[2018-04-02] MEDS: SENNOSIDES 8.6MG TABLET (FP) PO SCH (22:21)
--- NOTE | 2018-04-03 04:03 | PN ---
Progress Note, Physician Chief Complaint: Pt lying in bed; disoriented to place and time; no chest pain or dyspnea; denies leg pain. History of Present Illness: 83 yo white woman with a hx of HTN, major depressive disorder, dementia, and recurrent falls presents to the emergency department s/p fall that occurred at her assisted at 10:[address] [facility] that was unwitnessed. Per the patient, she has no recollection of the fall and only states that she has pain in her right occipital region and left lateral hip. Per the daughter (Doris), she was notified of the fall but did not have additional details. Patient denies antecedent symptoms to the fall. Allergies: PCN Medications: No anticoagulation use. On aspirin 81 mg. - Current Medication List Current Medications: Active Medications Acetaminophen (Tylenol -) 650 mg PO Q8H PRN PRN Reason: PAIN Last Admin: 04/02/18 22:21 Dose: 650 mg Amlodipine Besylate (Norvasc -) 5 mg PO DAILY [facility] Last Admin: 04/02/18 10:54 Dose: 5 mg Aspirin (Asa -) 81 mg PO DAILY [facility] Last Admin: 04/02/18 10:53 Dose: 81 mg Cholecalciferol (Vitamin D3 -) 1,000 unit PO DAILY [facility] Last Admin: 04/02/18 10:54 Dose: 1,000 unit Docusate Sodium (Colace -) 100 mg PO BID [facility] Last Admin: 04/02/18 22:21 Dose: 100 mg Donepezil HCl (Aricept -) 5 mg PO HS [facility] Last Admin: 04/02/18 22:21 Dose: 5 mg Enoxaparin Sodium (Lovenox -) 40 mg SQ DAILY [facility] Last Admin: 04/02/18 10:54 Dose: 40 mg Haloperidol (Haldol -) 0.5 mg PO HS PRN PRN Reason: psychosis Meropenem 1 gm/ Dextrose 100 mls @ 200 mls/hr IVPB Q8H-IV [facility] Oxycodone HCl (Roxicodone -) 5 mg PO Q6H PRN PRN Reason: PAIN LEVEL 7 - 10 Paroxetine HCl 20 mg/ (Paroxetine HCl 10 mg) 30 mg PO DAILY [facility] Last Admin: 04/02/18 10:53 Dose: 30 mg Senna (Senna -) 2 tab PO HS [facility] Last Admin: 04/02/18 22:21 Dose: 2 tab - Objective Vital Signs: Vital Signs Temperature 98.0 F 04/03/18 02:00 Pulse Rate 75 04/03/18 02:00 Respiratory Rate 20 04/03/18 02:00 Blood Pressure 98/58 L 04/03/18 02:00 O2 Sat by Pulse Oximetry (%) 99 04/02/18 09:00 Constitutional: Yes: Calm Eyes: Yes: WNL HENT: Yes: WNL Neck: Yes: WNL Cardiovascular: Yes: S1, S2 Respiratory: Yes: WNL Gastrointestinal: Yes: Soft ...Rectal Exam: Yes: Deferred Genitourinary: Yes: Anuria Breast(s): Yes: WNL Musculoskeletal: Yes: Muscle Weakness Extremities: Yes: WNL Edema: No Peripheral Pulses WNL: No Peripheral Pulses: Left Doralis Pedis: 1+, Right Dorsalis Pedis: 1+ Integumentary: Yes: WNL Wound/Incision: Yes: Dressing Dry and Intact Neurological: Yes: Weakness Psychiatric: Yes: Other (dementia) Labs: CBC, BMP 04/02/18 05:30 04/01/18 06:00 INR, PTT INR 1.09 (0.83-1.09) 03/31/18 05:30 Abnormal Lab Results 04/02/18 05:30 RBC 2.53 L Hgb 8.1 L Hct 23.5 L Problem List - Problems (1) HTN (hypertension) Assessment/Plan: on amlodipine. ECHO 02/2018: normal LVEF. Code(s): I10 - ESSENTIAL (PRIMARY) HYPERTENSION (2) Dementia Code(s): F03.90 - UNSPECIFIED DEMENTIA WITHOUT BEHAVIORAL DISTURBANCE Qualifiers: Dementia type: unspecified type Dementia behavioral disturbance: without behavioral disturbance Qualified Code(s): F03.90 - Unspecified dementia without behavioral disturbance (3) Intertrochanteric fracture of left femur Assessment/Plan: s/p ORIF left femur. Pain management; physical rehabilitation. Code(s): S72.142A - DISPLACED INTERTROCHANTERIC FRACTURE OF LEFT FEMUR, INIT Qualifiers: Encounter type: initial encounter Fracture type: closed Fracture alignment: displaced Qualified Code(s): S72.142A - Displaced intertrochanteric fracture of left femur, initial encounter for closed fracture (4) Falls frequently Assessment/Plan: avoid dehydration. orthostatic vital signs. Latest fall has resulted in left hip fracture-->repair. Code(s): R29.6 - REPEATED FALLS (5) Diastolic CHF Code(s): I50.30 - UNSPECIFIED DIASTOLIC (CONGESTIVE) HEART FAILURE (6) Elevated troponin Assessment/Plan: TNI 0.58; CKMB relative index relatively low. EKG: NSR;LAD; poor R wave progression: r/o old anterior infarct; no acute ST-T changes. Noted greater elevations in the past two weeks (to maximum 1.06); ECHO at that time did not mention regional wall motion abnormalities. Code(s): R74.8 - ABNORMAL LEVELS OF OTHER SERUM ENZYMES (7) Compression fx, thoracic spine Code(s): S22.000A - WEDGE COMPRESSION FRACTURE OF UNSP THORACIC VERTEBRA, INIT
[2018-04-03 07:07] LABS: BASO % 0.8 % (0-2.0); EOS % 4.5 % (0-4.5); HEMATOCRIT 22.1 % (32.4-45.2); HEMOGLOBIN 7.6 GM/dL (10.7-15.3); LYMPH % 17.7 % (8-40); MCH 31.9 pg (25.7-33.7); MCHC 34.2 g/dl (32.0-36.0); MEAN CELL VOLUME 93.1 fl (80-96); MEAN PLT VOLUME 9.4 fl (7.5-11.1); MONO % 10.1 % (3.8-10.2); NEUT % 66.9 % (42.8-82.8); PLATELET COUNT 239 K/MM3 (134-434); RBC 2.38 M/mm3 (3.60-5.2); RDW 14.5 % (11.6-15.6); WHITE BLOOD COUNT 4.8 K/mm3 (4.0-10.0)
--- NOTE | 2018-04-03 09:43 | PN ---
Progress Note, Physician History of Present Illness: 83 yo F with a hx of HTN, major depressive disorder, dementia, and recurrent falls presents to the emergency department s/p fall that occurred at her detention at 10:44 AM at [facility] that was unwitnessed. Per the patient, she has no recollection of the fall and only states that she has pain in her right occipital region and left lateral hip. Per the daughter (Doris), she was notified of the fall but did not have additional details. Patient denies antecedent symptoms to the fall. Denies the following: fever, chills, chest pain , headache, SOB, palpitations, nausea, vomiting, abdominal pain, dysuria, hematuria, diarrhea, hematochezia, and leg pain/swelling. Allergies: PCN Medications: No anticoagulation use. On aspirin 81 mg. - Current Medication List Current Medications: Active Medications Acetaminophen (Tylenol -) 650 mg PO Q8H PRN PRN Reason: PAIN Last Admin: 04/02/18 22:21 Dose: 650 mg Amlodipine Besylate (Norvasc -) 5 mg PO DAILY [facility] Last Admin: 04/02/18 10:54 Dose: 5 mg Aspirin (Asa -) 81 mg PO DAILY [facility] Last Admin: 04/02/18 10:53 Dose: 81 mg Cholecalciferol (Vitamin D3 -) 1,000 unit PO DAILY [facility] Last Admin: 04/02/18 10:54 Dose: 1,000 unit Docusate Sodium (Colace -) 100 mg PO BID [facility] Last Admin: 04/02/18 22:21 Dose: 100 mg Donepezil HCl (Aricept -) 5 mg PO HS [facility] Last Admin: 04/02/18 22:21 Dose: 5 mg Enoxaparin Sodium (Lovenox -) 40 mg SQ DAILY [facility] Last Admin: 04/02/18 10:54 Dose: 40 mg Haloperidol (Haldol -) 0.5 mg PO HS PRN PRN Reason: psychosis Meropenem 1 gm/ Dextrose 100 mls @ 200 mls/hr IVPB Q8H-IV [facility] Oxycodone HCl (Roxicodone -) 5 mg PO Q6H PRN PRN Reason: PAIN LEVEL 7 - 10 Paroxetine HCl 20 mg/ (Paroxetine HCl 10 mg) 30 mg PO DAILY [facility] Last Admin: 04/02/18 10:53 Dose: 30 mg Senna (Senna -) 2 tab PO HS [facility] Last Admin: 04/02/18 22:21 Dose: 2 tab - Objective Vital Signs: Vital Signs Temperature 97.4 F L 04/03/18 06:00 Pulse Rate 71 04/03/18 06:00 Respiratory Rate 20 04/03/18 06:00 Blood Pressure 100/56 L 04/03/18 06:00 O2 Sat by Pulse Oximetry (%) 100 04/02/18 21:00 Eyes: Yes: WNL, Conjunctiva Clear, EOM Intact HENT: Yes: WNL, Atraumatic, Normocephalic Neck: Yes: WNL, Supple, Trachea Midline Cardiovascular: Yes: WNL, Regular Rate and Rhythm Respiratory: Yes: WNL, Regular, CTA Bilaterally Gastrointestinal: Yes: WNL, Normal Bowel Sounds Genitourinary: Yes: WNL Musculoskeletal: Yes: WNL Extremities: Yes: WNL Edema: No Integumentary: Yes: WNL Neurological: Yes: WNL, Alert, Oriented ...Motor Strength: WNL Psychiatric: Yes: WNL Labs: CBC, BMP 04/03/18 05:30 04/01/18 06:00 INR, PTT INR 1.09 (0.83-1.09) 03/31/18 05:30 Assessment/Plan - Problems (1) HTN (hypertension) Assessment/Plan: on amlodipine. ECHO 02/2018: normal LVEF. Code(s): I10 - ESSENTIAL (PRIMARY) HYPERTENSION (2) Dementia Code(s): F03.90 - UNSPECIFIED DEMENTIA WITHOUT BEHAVIORAL DISTURBANCE Qualifiers: Dementia type: unspecified type Dementia behavioral disturbance: without behavioral disturbance Qualified Code(s): F03.90 - Unspecified dementia without behavioral disturbance (3) Intertrochanteric fracture of left femur Assessment/Plan: s/p ORIF left femur. Pain management; physical rehabilitation. Code(s): S72.142A - DISPLACED INTERTROCHANTERIC FRACTURE OF LEFT FEMUR, INIT Qualifiers: Encounter type: initial encounter Fracture type: closed Fracture alignment: displaced Qualified Code(s): S72.142A - Displaced intertrochanteric fracture of left femur, initial encounter for closed fracture (4) Falls frequently Assessment/Plan: avoid dehydration. orthostatic vital signs. Latest fall has resulted in left hip fracture-->repair. Code(s): R29.6 - REPEATED FALLS (5) Diastolic CHF Code(s): I50.30 - UNSPECIFIED DIASTOLIC (CONGESTIVE) HEART FAILURE (6) Elevated troponin Assessment/Plan: TNI 0.58; CKMB relative index relatively low. EKG: NSR;LAD; poor R wave progression: r/o old anterior infarct; no acute ST-T changes. Noted greater elevations in the past two weeks (to maximum 1.06); ECHO at that time did not mention regional wall motion abnormalities. Code(s): R74.8 - ABNORMAL LEVELS OF OTHER SERUM ENZYMES (7) Compression fx, thoracic spine Code(s): S22.000A - WEDGE COMPRESSION FRACTURE OF UNSP THORACIC VERTEBRA, INIT
[2018-04-03] MEDS: CHOLECALCIFEROL (VITAMIN D3) 1,000 UNIT TABLET (FP) PO SCH (10:17)
[2018-04-03] MEDS: ENOXAPARIN NA (PORCINE) 40 MG/0.4 ML DISP.SYRIN SQ SCH (10:17)
[2018-04-03] MEDS: DOCUSATE SODIUM 100 MG CAPSULE (FP) PO SCH ×2 (10:17→23:18)
[2018-04-03] MEDS: ASPIRIN 81 MG CHEWABLE TABLETS PO SCH (10:17)
[2018-04-03] MEDS: amLODIPine BESYLATE 5 MG TABLET (FP) PO SCH (10:18)
[2018-04-03] MEDS: PAROXETINE HCL 20 MG, PAROXETINE HCL 10 MG PO SCH (10:18)
--- NOTE | 2018-04-03 11:30 | PN ---
Progress Note (short form) - Note Progress Note: s/p surgery for left hip fracture ID has dc iv antibiotics picc line removed no distress Vital Signs - 24 hr 04/02/18 04/02/18 04/02/18 14:00 16:30 20:30 Temperature 98.0 F 98.9 F 97.4 F L Pulse Rate 85 79 78 Respiratory 20 20 Rate Blood Pressure 89/57 L 100/61 95/62 O2 Sat by Pulse Oximetry (%) 04/02/18 04/03/18 04/03/18 21:00 02:00 06:00 Temperature 98.0 F 97.4 F L Pulse Rate 75 71 Respiratory 20 20 Rate Blood Pressure 98/58 L 100/56 L O2 Sat by Pulse 100 Oximetry (%) Current Medications Generic Name Dose Route Start Last Admin Trade Name Freq PRN Reason Stop Dose Admin Acetaminophen 650 mg 03/31/18 17:25 04/02/18 22:21 Tylenol - PO 650 mg Q8H PRN Administration PAIN Amlodipine Besylate 5 mg 04/01/18 10:00 04/03/18 10:18 Norvasc - PO 5 mg DAILY [facility] Administration Aspirin 81 mg 04/01/18 10:00 04/03/18 10:17 Asa - PO 81 mg DAILY [facility] Administration Cholecalciferol 1,000 unit 04/01/18 10:00 04/03/18 10:17 Vitamin D3 - PO 1,000 unit DAILY [facility] Administration Docusate Sodium 100 mg 03/31/18 22:00 04/03/18 10:17 Colace - PO 100 mg BID [facility] Administration Donepezil HCl 5 mg 03/31/18 22:00 04/02/18 22:21 Aricept - PO 5 mg HS [facility] Administration Enoxaparin Sodium 40 mg 04/02/18 10:00 04/03/18 10:17 Lovenox - SQ 40 mg DAILY [facility] Administration Haloperidol 0.5 mg 03/31/18 17:25 Haldol - PO HS PRN psychosis Meropenem 1 gm/ Dextrose 100 mls @ 200 mls/hr 03/31/18 18:00 IVPB Q8H-IV [facility] Oxycodone HCl 5 mg 03/31/18 17:25 Roxicodone - PO Q6H PRN PAIN LEVEL 7 - 10 Paroxetine HCl 20 mg/ 30 mg 04/01/18 10:00 04/03/18 10:18 Paroxetine HCl 10 mg PO 30 mg DAILY [facility] Administration Senna 2 tab 03/31/18 22:00 04/02/18 22:21 Senna - PO 2 tab HS [facility] Administration Laboratory Results - last 24 hr 04/03/18 05:30 WBC 4.8 RBC 2.38 L Hgb 7.6 L Hct 22.1 L MCV 93.1 MCH 31.9 MCHC 34.2 RDW 14.5 Plt Count 239 MPV 9.4 Absolute Neuts (auto) 3.2 Neutrophils % 66.9 Lymphocytes % 17.7 Monocytes % 10.1 Eosinophils % 4.5 D Basophils % 0.8 Nucleated RBC % 0 Lungs decreased Abd- soft, NT No edema Left hip tender+ PLAN dc iv fluids encourage po ID eval-- iv antibiotics dc will transfuse 1 unit today dc tomorrow to DC pain control DVT prophylaxis monitor H/HCT Problem List - Problems (1) Elevated troponin Code(s): R74.8 - ABNORMAL LEVELS OF OTHER SERUM ENZYMES (2) HTN (hypertension) Code(s): I10 - ESSENTIAL (PRIMARY) HYPERTENSION (3) Intertrochanteric fracture of left femur Code(s): S72.142A - DISPLACED INTERTROCHANTERIC FRACTURE OF LEFT FEMUR, INIT Qualifiers: Encounter type: initial encounter Fracture type: closed Fracture alignment: displaced Qualified Code(s): S72.142A - Displaced intertrochanteric fracture of left femur, initial encounter for closed fracture (4) Falls frequently Code(s): R29.6 - REPEATED FALLS
--- NOTE | 2018-04-03 15:03 | PN ---
Progress Note (short form) - Note Progress Note: doing well. Received PT. HH noted and agree with [facility]. agree with plan to transfer to [place] tomorrow if doing well. cont pt fu office 2 weeks post op for staple removal
--- NOTE | 2018-04-03 15:49 | PN ---
Progress Note, Physician - Current Medication List Current Medications: Active Medications Acetaminophen (Tylenol -) 650 mg PO Q8H PRN PRN Reason: PAIN Last Admin: 04/02/18 22:21 Dose: 650 mg Amlodipine Besylate (Norvasc -) 5 mg PO DAILY [facility] Last Admin: 04/03/18 10:18 Dose: 5 mg Aspirin (Asa -) 81 mg PO DAILY [facility] Last Admin: 04/03/18 10:17 Dose: 81 mg Cholecalciferol (Vitamin D3 -) 1,000 unit PO DAILY [facility] Last Admin: 04/03/18 10:17 Dose: 1,000 unit Docusate Sodium (Colace -) 100 mg PO BID [facility] Last Admin: 04/03/18 10:17 Dose: 100 mg Donepezil HCl (Aricept -) 5 mg PO HS [facility] Last Admin: 04/02/18 22:21 Dose: 5 mg Enoxaparin Sodium (Lovenox -) 40 mg SQ DAILY [facility] Last Admin: 04/03/18 10:17 Dose: 40 mg Haloperidol (Haldol -) 0.5 mg PO HS PRN PRN Reason: psychosis Meropenem 1 gm/ Dextrose 100 mls @ 200 mls/hr IVPB Q8H-IV [facility] Oxycodone HCl (Roxicodone -) 5 mg PO Q6H PRN PRN Reason: PAIN LEVEL 7 - 10 Paroxetine HCl 20 mg/ (Paroxetine HCl 10 mg) 30 mg PO DAILY [facility] Last Admin: 04/03/18 10:18 Dose: 30 mg Senna (Senna -) 2 tab PO HS [facility] Last Admin: 04/02/18 22:21 Dose: 2 tab - Objective Vital Signs: Vital Signs Temperature 98.8 F 04/03/18 15:38 Pulse Rate 78 04/03/18 15:38 Respiratory Rate 22 H 04/03/18 15:38 Blood Pressure 108/62 04/03/18 15:38 O2 Sat by Pulse Oximetry (%) 100 04/03/18 09:00 Labs: CBC, BMP 04/03/18 05:30 04/01/18 06:00 INR, PTT INR 1.09 (0.83-1.09) 03/31/18 05:30
[2018-04-03] MEDS: SENNOSIDES 8.6MG TABLET (FP) PO SCH (23:18)
[2018-04-03] MEDS: DONEPEZIL HCL 5 MG TABLET (FP) PO SCH (23:18)
--- NOTE | 2018-04-04 09:35 | PN ---
Progress Note, Physician History of Present Illness: 83 yo F with a hx of HTN, major depressive disorder, dementia, and recurrent falls presents to the emergency department s/p [facility] AM at [facility] that was unwitnessed. Per the patient, she has no recollection of the fall and only states that she has pain in her right occipital region and left lateral hip. Per the daughter (Doris), she was notified of the fall but did not have additional details. Patient denies antecedent symptoms to the fall. Denies the following: fever, chills, chest pain , headache, SOB, palpitations, nausea, vomiting, abdominal pain, dysuria, hematuria, diarrhea, hematochezia, and leg pain/swelling. Allergies: PCN Medications: No anticoagulation use. On aspirin 81 mg. - Current Medication List Current Medications: Active Medications Acetaminophen (Tylenol -) 650 mg PO Q8H PRN PRN Reason: PAIN Last Admin: 04/02/18 22:21 Dose: 650 mg Amlodipine Besylate (Norvasc -) 5 mg PO DAILY [facility] Last Admin: 04/03/18 10:18 Dose: 5 mg Aspirin (Asa -) 81 mg PO DAILY [facility] Last Admin: 04/03/18 10:17 Dose: 81 mg Cholecalciferol (Vitamin D3 -) 1,000 unit PO DAILY [facility] Last Admin: 04/03/18 10:17 Dose: 1,000 unit Docusate Sodium (Colace -) 100 mg PO BID [facility] Last Admin: 04/03/18 23:18 Dose: 100 mg Donepezil HCl (Aricept -) 5 mg PO HS [facility] Last Admin: 04/03/18 23:18 Dose: 5 mg Enoxaparin Sodium (Lovenox -) 40 mg SQ DAILY [facility] Last Admin: 04/03/18 10:17 Dose: 40 mg Haloperidol (Haldol -) 0.5 mg PO HS PRN PRN Reason: psychosis Meropenem 1 gm/ Dextrose 100 mls @ 200 mls/hr IVPB Q8H-IV [facility] Oxycodone HCl (Roxicodone -) 5 mg PO Q6H PRN PRN Reason: PAIN LEVEL 7 - 10 Paroxetine HCl 20 mg/ (Paroxetine HCl 10 mg) 30 mg PO DAILY [facility] Last Admin: 04/03/18 10:18 Dose: 30 mg Senna (Senna -) 2 tab PO HS [facility] Last Admin: 04/03/18 23:18 Dose: 2 tab - Objective Vital Signs: Vital Signs Temperature 98.6 F 04/04/18 06:06 Pulse Rate 75 04/04/18 06:06 Respiratory Rate 20 04/04/18 06:06 Blood Pressure 122/75 04/04/18 06:06 O2 Sat by Pulse Oximetry (%) 99 04/03/18 21:00 Eyes: Yes: WNL, Conjunctiva Clear, EOM Intact HENT: Yes: WNL, Atraumatic, Normocephalic Neck: Yes: WNL, Supple, Trachea Midline Cardiovascular: Yes: WNL, Regular Rate and Rhythm Respiratory: Yes: WNL, Regular, CTA Bilaterally Gastrointestinal: Yes: WNL, Normal Bowel Sounds Genitourinary: Yes: WNL Musculoskeletal: Yes: WNL Extremities: Yes: WNL Edema: No Integumentary: Yes: WNL ...Motor Strength: WNL Psychiatric: Yes: WNL Labs: CBC, BMP 04/03/18 05:30 04/01/18 06:00 INR, PTT INR 1.09 (0.83-1.09) 03/31/18 05:30 Assessment/Plan - Problems (1) HTN (hypertension) Assessment/Plan: on amlodipine. ECHO 02/2018: normal LVEF. Code(s): I10 - ESSENTIAL (PRIMARY) HYPERTENSION (2) Dementia Code(s): F03.90 - UNSPECIFIED DEMENTIA WITHOUT BEHAVIORAL DISTURBANCE Qualifiers: Dementia type: unspecified type Dementia behavioral disturbance: without behavioral disturbance Qualified Code(s): F03.90 - Unspecified dementia without behavioral disturbance (3) Intertrochanteric fracture of left femur Assessment/Plan: s/p ORIF left femur. Pain management; physical rehabilitation. Code(s): S72.142A - DISPLACED INTERTROCHANTERIC FRACTURE OF LEFT FEMUR, INIT Qualifiers: Encounter type: initial encounter Fracture type: closed Fracture alignment: displaced Qualified Code(s): S72.142A - Displaced intertrochanteric fracture of left femur, initial encounter for closed fracture (4) Falls frequently Assessment/Plan: avoid dehydration. orthostatic vital signs. Latest fall has resulted in left hip fracture-->repair. Code(s): R29.6 - REPEATED FALLS (5) Diastolic CHF Code(s): I50.30 - UNSPECIFIED DIASTOLIC (CONGESTIVE) HEART FAILURE (6) Elevated troponin Assessment/Plan: TNI 0.58; CKMB relative index relatively low. EKG: NSR;LAD; poor R wave progression: r/o old anterior infarct; no acute ST-T changes. Noted greater elevations in the past two weeks (to maximum 1.06); ECHO at that time did not mention regional wall motion abnormalities. Code(s): R74.8 - ABNORMAL LEVELS OF OTHER SERUM ENZYMES (7) Compression fx, thoracic spine Code(s): S22.000A - WEDGE COMPRESSION FRACTURE OF UNSP THORACIC VERTEBRA, INIT
[2018-04-04] MEDS: CHOLECALCIFEROL (VITAMIN D3) 1,000 UNIT TABLET (FP) PO SCH (09:48)
[2018-04-04] MEDS: amLODIPine BESYLATE 5 MG TABLET (FP) PO SCH (09:48)
[2018-04-04] MEDS: DOCUSATE SODIUM 100 MG CAPSULE (FP) PO SCH (09:49)
[2018-04-04] MEDS: PAROXETINE HCL 20 MG, PAROXETINE HCL 10 MG PO SCH (09:49)
[2018-04-04] MEDS: ASPIRIN 81 MG CHEWABLE TABLETS PO SCH (09:49)
[2018-04-04] MEDS: ENOXAPARIN NA (PORCINE) 40 MG/0.4 ML DISP.SYRIN SQ SCH (09:49)
--- NOTE | 2018-04-04 10:18 | DS ---
Physical Examination Vital Signs: Vital Signs Temperature 98.6 F 04/04/18 06:06 Pulse Rate 75 04/04/18 06:06 Respiratory Rate 20 04/04/18 06:06 Blood Pressure 122/75 04/04/18 06:06 O2 Sat by Pulse Oximetry (%) 99 04/03/18 21:00 Constitutional: Yes: No Distress, Calm Cardiovascular: Yes: Regular Rate and Rhythm Respiratory: Yes: CTA Bilaterally Gastrointestinal: Yes: Normal Bowel Sounds, Soft Edema: No Labs: CBC, BMP 04/03/18 05:30 04/01/18 06:00 Discharge Summary Reason For Visit: ELEVATED TROPONIN LEVEL/INTERTROCHANTERIC Current Active Problems Compression fx, thoracic spine (Acute) Dementia (Acute) Diastolic CHF (Acute) Elevated troponin (Acute) HTN (hypertension) (Acute) Intertrochanteric fracture of left femur (Acute) Hospital Course: S/p fall- sustained left intertrochanteric fracture Seen by Cardiology , ID and Ortho Underwent surgery on 03/31/18 She 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 and discontinued by ID-- picc line removed She received one unit of PRBC Hb 9.5 Stable for dc to [facility] Condition: Improved - Instructions Disposition: [facility]ILITY - Home Medications Comprehensive Discharge Medication List: Ambulatory Orders Acetaminophen [Tylenol] 650 mg PO Q8H PRN 03/16/18 Amlodipine Besylate 5 mg PO DAILY 03/16/18 Cholecalciferol (Vitamin D3) [Vitamin D3] 1,000 unit PO DAILY 03/16/18 Donepezil HCl 5 mg PO HS 03/16/18 Haloperidol [Haldol -] 0.5 mg PO HS PRN 03/16/18 Paroxetine HCl [Paxil] 30 mg PO DAILY 03/16/18 Aspirin [ASA -] 81 mg PO DAILY tab.chew 03/22/18 Heparin - 5,000 unit SQ BID vial 03/22/18 Enoxaparin [Lovenox -] 40 mg SQ DAILY #14 disp.syrin 04/03/18 oxyCODONE HCL [Roxicodone -] 5 mg PO Q6H PRN #20 tablet MDD 4 04/03/18
[2018-04-04 11:02] VITALS: BP 116/60; PULSE 69; TEMP 98.2
[2018-04-04 11:02] LABS: HEMOGLOBIN 9.5 GM/dL (10.7-15.3); MCH 31.2 pg (25.7-33.7); MCHC 34.1 g/dl (32.0-36.0); MEAN CELL VOLUME 91.4 fl (80-96); MEAN PLT VOLUME 8.5 fl (7.5-11.1); PLATELET COUNT 290 K/MM3 (134-434); RBC 3.06 M/mm3 (3.60-5.2); RDW 16.1 % (11.6-15.6); WHITE BLOOD COUNT 5.1 K/mm3 (4.0-10.0)
[2018-04-04 11:14] LABS: ANION GAP 6 MMOL/L (8-16); BLOOD UREA NITROGEN 19 mg/dL (7-18); CALCIUM 8.8 mg/dL (8.5-10.1); CHLORIDE 103 mmol/L (98-107); CO2 30 mmol/L (21-32); CREATININE 0.5 mg/dL (0.55-1.3); GLUCOSE,RANDOM 93 mg/dL (74-106); POTASSIUM 4.2 mmol/L (3.5-5.1); SODIUM 139 mmol/L (136-145)
--- NOTE | 2018-04-04 13:57 | PN ---
Progress Note, Physician - Current Medication List Current Medications: Active Medications Acetaminophen (Tylenol -) 650 mg PO Q8H PRN PRN Reason: PAIN Last Admin: 04/02/18 22:21 Dose: 650 mg Amlodipine Besylate (Norvasc -) 5 mg PO DAILY [facility] Last Admin: 04/04/18 09:48 Dose: 5 mg Aspirin (Asa -) 81 mg PO DAILY [facility] Last Admin: 04/04/18 09:49 Dose: 81 mg Cholecalciferol (Vitamin D3 -) 1,000 unit PO DAILY [facility] Last Admin: 04/04/18 09:48 Dose: 1,000 unit Docusate Sodium (Colace -) 100 mg PO BID [facility] Last Admin: 04/04/18 09:49 Dose: 100 mg Donepezil HCl (Aricept -) 5 mg PO HS [facility] Last Admin: 04/03/18 23:18 Dose: 5 mg Enoxaparin Sodium (Lovenox -) 40 mg SQ DAILY [facility] Last Admin: 04/04/18 09:49 Dose: 40 mg Haloperidol (Haldol -) 0.5 mg PO HS PRN PRN Reason: psychosis Meropenem 1 gm/ Dextrose 100 mls @ 200 mls/hr IVPB Q8H-IV [facility] Oxycodone HCl (Roxicodone -) 5 mg PO Q6H PRN PRN Reason: PAIN LEVEL 7 - 10 Paroxetine HCl 20 mg/ (Paroxetine HCl 10 mg) 30 mg PO DAILY [facility] Last Admin: 04/04/18 09:49 Dose: 30 mg Senna (Senna -) 2 tab PO HS [facility] Last Admin: 04/03/18 23:18 Dose: 2 tab - Objective Vital Signs: Vital Signs Temperature 98.2 F 04/04/18 10:00 Pulse Rate 69 04/04/18 10:00 Respiratory Rate 20 04/04/18 10:00 Blood Pressure 116/60 04/04/18 10:00 O2 Sat by Pulse Oximetry (%) 99 04/04/18 09:00 Labs: CBC, BMP 04/04/18 10:00 04/04/18 10:00 INR, PTT INR 1.09 (0.83-1.09) 03/31/18 05:30
== END 2018-04-04 15:14 | DRG 481 ==
LOC: JER 12:37 → JERBED 17:28 → J4W 20:58
PROVIDERS: ADMIT Internal Medicine; ATTEND Internal Medicine
PROC: 0QS706Z Reposition Left Upper Femur with Intramedullary Internal Fixation Device, Open Approach (ICD-10-PCS; principal; 2018-03-31 15:00)
PROC: 30233N1 Transfusion of Nonautologous Red Blood Cells into Peripheral Vein, Percutaneous Approach (ICD-10-PCS; 2018-04-03)
DX: S72.142A Displaced intertrochanteric fracture of left femur, initial encounter for closed fracture (principal); I50.32 Chronic diastolic (congestive) heart failure; D62 Acute posthemorrhagic anemia; F32.9 Major depressive disorder, single episode, unspecified; R29.6 Repeated falls; W19.XXXA Unspecified fall, initial encounter; Y93.89 Activity, other specified; Y92.128 Other place in nursing home as the place of occurrence of the external cause; Y99.8 Other external cause status; G30.9 Alzheimer's disease, unspecified; F02.80 Dementia in other diseases classified elsewhere, unspecified severity, without behavioral disturbance, psychotic disturbance, mood disturbance, and anxiety; Z88.0 Allergy status to penicillin; I11.0 Hypertensive heart disease with heart failure; R74.8 Abnormal levels of other serum enzymes
CPT/HCPCS: 36415; 36430; 36511; 70450-TC; 71045-TC-FY; 72125-TC; 72128-TC; 72131-TC; 72192-TC; 73552-TC-LT-FY; 80048; 80053; 81003; 81015; 82550; 82553; 83735; 84100; 84479; 84484; 85025; 85027; 85610; 85730; 86850; 86900; 86901; 86922; 87086; 93005; 93010; 93306-TC; 94760; 97116-GP; 97162-GP; 99283-25; J1644; P9038; P9058

== ENCOUNTER 2018-11-10 10:02 | Day surgery (SDC) | payer OTHER ==
[2018-11-05 09:52] VITALS: BMI 23.1
[2018-11-10] MEDS ORDERED: EPINEPHrine/PF 1 MG/1 ML (1:1,000) AMPULE ONE (10:53)
[2018-11-10] MEDS ORDERED: BSS (NA/CA/MG/K) BALANCED SALT SOLUTION OPHTH SOLN 15 ML BOTTLE ONE (10:53)
[2018-11-10] MEDS ORDERED: NEO/POLYMYX B SULF/DEXAMETH OPHTHALMIC 5ML BOTTLE ONE (10:53)
[2018-11-10] MEDS ORDERED: TETRACAINE 0.5% OPHTH SOLN 2 ML BOTTLE ONE (10:53)
[2018-11-10] MEDS ORDERED: LIDOCAINE 1% P/F 10 MG/ML VIAL ONE (10:53)
[2018-11-10] MEDS ORDERED: CARBACHOL 0.01% INTRA-OCULAR 1.5 ML VIAL ONE (10:53)
[2018-11-10] MEDS: CYCLOPENTOLATE 2% OPHTH SOLN 2 ML BOTTLE ONE ×3 (10:55→11:05)
[2018-11-10] MEDS: TROPICAMIDE 1% OPHTH SOLN 15 ML BOTTLE ONE ×3 (10:55→11:05)
[2018-11-10] MEDS: CIPROFLOXACIN 0.3% EYE DROPS 5 ML BOTTLE ONE ×3 (10:55→11:05)
[2018-11-10] MEDS: PHENYLEPHRINE 2.5% OPHTH SOLN 15 ML BOTTLE ONE ×3 (10:55→11:05)
[2018-11-10] MEDS ORDERED: MIDAZOLAM HCL 2 MG/2 ML SINGLE DOSE VIAL ONE (11:00)
[2018-11-10 13:26] VITALS: TEMP 97.8
[2018-11-10 13:29] VITALS: BP 131/74; PULSE 68
--- NOTE | 2018-11-10 19:10 | OP ---
DATE OF OPERATION: 11/10/2018 OPERATIVE PROCEDURE: Lens Phacoemulsification with Posterior Chamber Intraocular Lens Placement Right Eye PREOPERATIVE DIAGNOSIS: Visually Significant Cataract of Right Eye POSTOPERATIVE DIAGNOSIS: Visually Significant Cataract of Right Eye SURGEON: Danny Moseley M.D. ANESTHESIA: MAC PROCEDURE: The patient was brought to the operating room and placed under monitored anesthesia care by Anesthesia. A drop of Tetracaine was then placed over the right eye. The patient was then prepped and draped in the usual sterile manner. A speculum was then placed over the right eye. The eye was then well irrigated with copious amounts of BSS (balanced salt solution). The operating microscope was then moved into position. A paracentesis was performed using a 15 degree blade. At this point 0.5 mL of 1% preservative-free lidocaine was injected into the anterior chamber. Amvisc plus was then injected into the anterior chamber. A clear corneal incision was then formed using a 2.2 mm keratome. A capsulorrhexis was then performed in a continuous circular fashion beginning with a cystotome, completed with an Utratas forceps. Hydrodissection was then performed using BSS on a cannula. The phaco probe was then introduced through the corneal wound and the cataract was removed using the phaco chop technique. Approximately 3 seconds of absolute phaco time was used. The remaining cortex was then removed using irrigation and aspiration with an I/A probe. The capsule was then filled with regular Amvisc and the capsule was noted to be intact. A previously selected foldable posterior chamber intraocular lens was then injected into the capsule through the corneal wound using a lens injector. It was then dialed into position using a Sinskey hook. The Amvisc was then removed using irrigation and aspiration. Miostat was then injected through the paracentesis to constrict the pupil. The paracentesis and corneal wound were then hydrated and noted to be water tight. A drop of Maxitrol was then placed over the eye. The speculum was removed and clear shield was taped over the eye. The patient tolerated the procedure well and there were no surgical complications. The patient was asked to follow up in my office the next day. DANNY MOSELEY M.D. JACQUELINE/[id number]
== END 2018-11-10 13:38 ==
LOC: FASU 10:02
PROVIDERS: ATTEND Ophthalmology
PROC: 08RJ3JZ Replacement of Right Lens with Synthetic Substitute, Percutaneous Approach (ICD-10-PCS; principal; 2018-11-10 12:04)
DX: H26.8 Other specified cataract (principal)